=== PATIENT | female | born 1930 | race Caucasian/White ===

== ENCOUNTER 2016-05-23 16:48 | Inpatient (IN) | payer MEDICARE ==
[~2016-05-23] VITALS: Ht 152.4 cm; Wt 34.9 kg
--- NOTE | 2016-05-23 18:19 | REP ---
CT HEAD WITHOUT CONTRAST: HISTORY: Headache. COMPARISON: None. The ventricles and sulci are consistent with an 85-year-old. There are no extra-axial fluid collections. There is no shift of the midline structures. There is diffuse lucency seen throughout the deep cerebral white matter consistent with chronic change. There is no evidence of an acute intracranial hemorrhagic or nonhemorrhagic event. There is no skull fracture. There are paranasal sinus soft tissues densities consistent with mucosal thickening. This should be correlated clinically. IMPRESSION: Age-related changes and paranasal sinus mucosal thickening. Signed by Ted Allison DO 05/23/2016 06:43 P
--- NOTE | 2016-05-23 18:22 | REP ---
PORTABLE CHEST X-RAY: REASON: Syncope. PRIORS: Multiple, latest 09/25/2015 The technique utilized in obtaining the radiograph has magnified the cardiac silhouette and accentuated the interstitial markings. There is marked fibrotic changes status quo. Cardiomediastinal silhouette is unchanged. There is mild cardiomegaly. No acute patchy parenchymal opacities or pleural effusions have seem to have developed. There is no change in the osseous structures. IMPRESSION: Marked chronic changes as described above. Signed by Ted Allison DO 05/23/2016 06:44 P
[2016-05-23 18:31] LABS: BASO % 0.2 % (0.0-1.0); EOS % 0.3 % (0.0-3.0); LARGE UNSTAINED CELL # 0.1 K/mm3 (0.0-0.4); LARGE UNSTAINED CELL % 0.7 % (0.0-4.0); LYMPH # 0.5 K/mm3 (1.5-4.5); LYMPH % 3.4 % (24.0-44.0); MEAN CORPUSCULAR HEMOGLOBIN 28.1 pg (27.0-33.0); MEAN CORPUSCULAR VOLUME 87.8 fl (80.0-96.0); MONO # 0.6 K/mm3 (0.0-0.8); MONO % 4.5 % (0.0-5.0); NEUTROPHILS # 12.6 K/mm3 (1.8-7.7); PLATELET COUNT, AUTOMATED 440 k/mm3 (150-450); RED CELL DISTRIBUTION WIDTH 13.4 % (11.5-14.5); WHITE BLOOD COUNT 13.8 K/mm3 (4.0-10.0)
[2016-05-23 18:32] LABS: INR 0.94
[2016-05-23 18:41] LABS: ANION GAP 9 MEQ/L (8-16); BLOOD UREA NITROGEN 22 MG/DL (7-18); CALCIUM LEVEL 8.6 MG/DL (8.8-10.2); CARBON DIOXIDE LEVEL 33 MEQ/L (21-32); CHLORIDE LEVEL 95 MEQ/L (98-107); CREATININE FOR GFR 0.38 MG/DL (0.55-1.02); GLOMERULAR FILTRATION RATE > 60.0 (>32); GLUCOSE, FASTING 106 MG/DL (83-110); POTASSIUM SERUM 3.7 MEQ/L (3.5-5.1); SODIUM LEVEL 137 MEQ/L (136-145)
[2016-05-23] MEDS ORDERED: ENSU-12 PO ×2 (20:44)
[2016-05-23] MEDS ORDERED: SENN8.6T7 PO (20:44)
[2016-05-23] MEDS ORDERED: CALCTAB68 PO (20:44)
[2016-05-23] MEDS ORDERED: BISA10SU4 PR (20:44)
[2016-05-23] MEDS ORDERED: MILKSUS PO (20:44)
[2016-05-23] MEDS ORDERED: ETHA400T PO (20:44)
[2016-05-23] MEDS ORDERED: AZIT250T3 PO (20:44)
[2016-05-23] MEDS ORDERED: QVAR80AE7 INH (20:44)
[2016-05-23] MEDS ORDERED: FLEC25TA PO (20:44)
[2016-05-23] MEDS ORDERED: CRAN500C2 PO (20:44)
[2016-05-23] MEDS ORDERED: PRED10TA PO (20:44)
[2016-05-23] MEDS ORDERED: TYLE325T5 PO (20:44)
[2016-05-23] MEDS ORDERED: VITA100066 PO (20:44)
[2016-05-23] MEDS ORDERED: PARO10TA84 PO (20:44)
[2016-05-23] MEDS ORDERED: CARD40TA PO (20:44)
--- NOTE | 2016-05-23 21:08 | ECGEPIP ---
Stationary ECG Study [facility] - ED Test Date: 2016-05-23 Pat Name: ANNA MARIE PABON Department: Room: - Gender: F Lead Data Entry Operator: ct : 1930 Requested By: JUAN CARLOS Singleton Order Number: [id number] Reading MD: Kera Gomez Measurements Intervals Dawes Rate: 67 P: 55 KS: 165 QRS: -49 QRSD: 78 T: 14 QT: 420 QTc: 444 Interpretive Statements SINUS RHYTHM LEFT ANTERIOR FASCICULAR BLOCK NSTTW ABNORMALITY NO PRIOR FOR COMPARISON Electronically Signed On 05-23-2016 21:07:53 EDT by Kera Gomez
[2016-05-23] MEDS ORDERED: BISACODYL 10 MG SUPP PR PRN (22:15)
[2016-05-23] MEDS ORDERED: ONDANSETRON 4MG/2ML VIAL (J2405) IV PRN (22:15)
[2016-05-23] MEDS ORDERED: ACETAMINOPHEN TAB 650MG DOSE (2X325MG) PO PRN (22:15)
[2016-05-23] MEDS ORDERED: IPRATROPIUM 0.5MG/ALBUTEROL 2.5MG INH SOL UD 3ML (DUONEB)(J7620) NEB PRN (22:15)
[2016-05-23] MEDS ORDERED: MOM 30ML SUSPENSION UDC PO PRN (22:15)
[2016-05-23 22:22] LABS: ALBUMIN 2.9 GM/DL (3.2-5.2); ALBUMIN/GLOBULIN RATIO 0.85 (1.00-1.93); ALKALINE PHOSPHATASE 105 U/L (45-117); ALT/SGPT 19 U/L (12-78); AST/SGOT 18 U/L (15-37); BILIRUBIN,DIRECT < 0.1 MG/DL (0.0-0.2); BILIRUBIN,TOTAL 0.2 MG/DL (0.2-1.0); FERRITIN 105 NG/ML (8-252); MAGNESIUM LEVEL 1.6 MG/DL (1.8-2.4); PERCENT SATURATION 4.4 % (13.2-37.4); TOTAL IRON BINDING CAPACITY 320 UG/DL (250-450); TOTAL PROTEIN 6.3 GM/DL (6.4-8.2)
[2016-05-23 22:33] LABS: ERYTHROCYTE SEDIMENTATION RATE 54 mm/hr (0-30)
[2016-05-23 22:33] LABS: VITAMIN B12 LEVEL 178 PG/ML (247-911)
[2016-05-23 22:34] LABS: FOLATE > 24.0 NG/ML (>5.4)
[2016-05-23 23:30] VITALS: BP 151/63
[2016-05-24] VITALS (9 sets, daily range): BP systolic 101–138; BP diastolic 55–83
[2016-05-24] MEDS ORDERED: MAG SULF 1GM/100ML (MAG RUN) 1 GM in APPROPRIATE DILUENT 1 EA IV ONE ×2
[2016-05-24] MEDS: FLECAINIDE 50MG TABLET PO SCH ×3 (02:01→20:39)
[2016-05-24] MEDS: PARoxetine 10MG TABLET PO SCH ×2 (02:01→20:39)
[2016-05-24] MEDS: NS 1,000 ML IV SCH ×2 (02:02→18:15)
[2016-05-24] MEDS: IPRATROPIUM 0.5MG/ALBUTEROL 2.5MG INH SOL UD 3ML (DUONEB)(J7620) NEB SCH ×4 (02:12→23:46)
[2016-05-24 05:18] LABS: BASO % 0.3 % (0.0-1.0); EOS # 0.2 K/mm3 (0.0-0.50); EOS % 1.3 % (0.0-3.0); LARGE UNSTAINED CELL # 0.1 K/mm3 (0.0-0.4); LARGE UNSTAINED CELL % 0.8 % (0.0-4.0); LYMPH # 1.2 K/mm3 (1.5-4.5); MEAN CORPUSCULAR HEMOGLOBIN 28.7 pg (27.0-33.0); MEAN CORPUSCULAR HGB CONC 32.2 g/dl (32.0-36.5); MEAN CORPUSCULAR VOLUME 89.3 fl (80.0-96.0); MONO # 0.8 K/mm3 (0.0-0.8); MONO % 6.6 % (0.0-5.0); NEUTROPHILS # 10.3 K/mm3 (1.8-7.7); NEUTROPHILS % 81.9 % (36.0-66.0); PLATELET COUNT, AUTOMATED 422 k/mm3 (150-450); RED CELL DISTRIBUTION WIDTH 13.6 % (11.5-14.5); WHITE BLOOD COUNT 12.6 K/mm3 (4.0-10.0)
[2016-05-24 05:30] LABS: ANION GAP 7 MEQ/L (8-16); BLOOD UREA NITROGEN 13 MG/DL (7-18); CALCIUM LEVEL 8.4 MG/DL (8.8-10.2); CARBON DIOXIDE LEVEL 34 MEQ/L (21-32); CHLORIDE LEVEL 97 MEQ/L (98-107); CREATININE FOR GFR 0.43 MG/DL (0.55-1.02); GLOMERULAR FILTRATION RATE > 60.0 (>32); GLUCOSE, FASTING 81 MG/DL (83-110); POTASSIUM SERUM 3.4 MEQ/L (3.5-5.1); SODIUM LEVEL 138 MEQ/L (136-145)
[2016-05-24] MEDS ORDERED: POTASSIUM CHLORIDE 10 MEQ SR TABLET PO ONE (05:45)
--- NOTE | 2016-05-24 08:51 | IPNPDOC ---
Subjective Date Seen The patient was seen on 05/24/16. Subjective Chief Complaint/HPI The patient is a 85-year-old female admitted with a reason for visit of Syncope. General: Denies: Chills, Fatigue, Malaise, Night Sweats, Normal Appetite, Other Symptoms, ROS Unobtainable Constitutional: Denies: Chills, Fatigue, Fever, Lethargy, Malaise, Night Sweats , Other, Weakness, Weight Loss Eyes: Denies: Conjunctivae inflammation, Eyelid inflammation, Other, Pain, Redness, Vision change ENT: Denies: Dysphagia, Ear Pain, Epistaxis, Head Aches, Other Symptoms, Post Nasal Drip, Sinus Congestion, Sore Throat Skin: Denies: Breakdown, Bruising, Dry, Itching, Jaundice, Lesions, Nail Changes, Other, Rash Pulmonary: Denies: Cough, Dyspnea, Other Symptoms, Pleuritic Chest Pain Cardiovascular: Denies: Chest Pain, Edema, Lt Headedness, Orthopnea, Other Symptoms, Palpitations, Paroxysmal Noc. Dyspnea Gastrointestinal: Denies: Abdominal Pain, Constipation, Diarrhea, Hematochezia , Melena, Nausea, Other Symptoms, Vomiting Genitourinary: Denies: Dysuria, Frequency, Hematuria, Incontinence, Other Symptoms, Retention Objective Physical Examination General Exam: Positive: Alert, Cooperative, No Acute Distress, Other (elderly. frail) Eye Exam: Positive: Conjunctiva & lids normal, EOMI, PERRLA, Negative: Sclera icteric ENT Exam: Positive: Atraumatic Neck Exam: Positive: Supple Chest Exam: Positive: Clear to auscultation, Diminished Heart Exam: Positive: Rate Normal, Regular Rhythm Telemetry: Positive: No significant arrhythmia Abdomen Exam: Positive: Normal bowel sounds, Soft, Negative: Tenderness Extremity Exam: Negative: Edema Psych Exam: Positive: Oriented x 3 Assessment /Plan Problems (1) Syncope Status: Acute Response to Treatment: Progressing Discussed With: Patient Problem Specific Plan: Monitor Clinically, Repeat Labs, Repeat Tests Problem Text: Etiology not clear. Patient states isolated event, possibly vasovagal. States occurred around 2pm during PT/OT. She had breakfast, lunch and was otherwise a typical day. Denies any bladder/bowel symptoms, does not recall if she was sitting or standing at time of incident. States she was confused when she regained consciousness. Check orthostatics, telemetry monitoring - thus far unremarkable. EEG. Echocardiogram. Plan/VTE VTE Prophylaxis Ordered?: Yes Plan IVF: Continue Diet: Continue Current Activity: Continue Current Therapy: PT, OT Diagnostics: Repeat Labs in AM, TTE VS, I&O, [facility]H, [facility] Vital Signs/I&O Vital Signs Date Time Temp Pulse Resp B/P Pulse Ox O2 Delivery O2 Flow Rate FiO2 05/24/16 08:34 Nasal Cannula 2.0 05/24/16 04:49 98.7 68 18 101/55 98 I&O- Last 24 Hours up to 6 AM 05/24/16 05:59 Output Total 550 ml Balance -550 ml Laboratory Data 24H LABS Laboratory Tests 2 05/23/16 18:10: White Blood Count 13.8H, Red Blood Count 3.81L, Hemoglobin 10.7L, Hematocrit 33.5L, Mean Corpuscular Volume 87.8, Mean Corpuscular Hemoglobin 28.1, Mean Corpuscular Hemoglobin Concent 32.0, Red Cell Distribution Width 13.4, Platelet Count 440, Neutrophils (%) (Auto) 91.0H, Lymphocytes (%) (Auto) 3.4L, Monocytes (%) (Auto) 4.5, Eosinophils (%) (Auto) 0.3, Basophils (%) (Auto) 0.2, Neutrophils # (Auto) 12.6H, Lymphocytes # (Auto) 0.5L, Monocytes # (Auto) 0.6, Eosinophils # (Auto) 0.0, Basophils # (Auto) 0.0, Erythrocyte Sedimentation Rate 54H, Large Unclassified Cells # 0.1, Large Unclassified Cells % 0.7 05/23/16 18:11: Aspartate Amino Transf (AST/SGOT) 18, Alanine Aminotransferase (ALT/SGPT) 19, Alkaline Phosphatase 105, Total Bilirubin 0.2, Direct Bilirubin < 0.1, Albumin 2.9L, Albumin/Globulin Ratio 0.85L, Anion Gap 9, C-Reactive Protein, Quantitative 3.28H, Calcium Level 8.6L, Creatine Kinase MB 1.0, Creatine Kinase MB Relative Index 3.84, Ferritin 105, Folate > 24.0, Glomerular Filtration Rate > 60.0, Iron Level 14L, Magnesium Level 1.6L, Thyroid Stimulating Hormone (TSH) 1.950, Total Creatine Kinase 26, Total Iron Binding Capacity 320, Total Protein 6.3L, Transferrin % Saturation 4.4L, Troponin I < 0.02, Vitamin B12 Level 178L 05/23/16 18:14: Activated Partial Thromboplast Time 26.8, Prothromb Time International Ratio 0.94, Prothrombin Time 12.7 05/23/16 19:43: Urine Amorphous Sediment SMALLH, Urine Appearance HAZY, Urine Color YELLOW, Urine pH 6.0, Urine Specific [place] 1.021, Urine Protein NEGATIVE, Urine Glucose (UA) NEGATIVE, Urine Ketones TRACEH, Urine Urobilinogen 0.2, Urine Bilirubin NEGATIVE, Urine Leukocyte Esterase NEGATIVE, Urine Bacteria (Auto) NEGATIVE, Urine Blood NEGATIVE, Urine Calcium Carbonate Cryst(Auto) , Urine Calcium Oxalate Cryst (Auto) , Urine Calcium Phosphate Karina (Auto) , Urine Cellular Casts , Urine Cystine Crystals , Urine Granular Casts (Auto) , Urine Hyaline Casts (Auto) 1, Urine Leucine Crystals , Urine Mucus (Auto) SMALL, Urine Nitrite NEGATIVE, Urine Oval Fat Bodies (Auto) , Urine RBC (Auto) 4H, Urine Renal Epithelial Cells , Urine Sperm (Auto) , Urine Squamous Epithelial Cells 14, Urine Transitional Epithelial Cells , Urine Trichomonas (Auto) , Urine Triple Phosphate Cryst (Auto) , Urine Tyrosine Crystals , Urine Uric Acid Crystals (Auto) , Urine WBC (Auto) 2, Urine Waxy Casts (Auto) , Urine Yeast- Like Cells (Auto) 05/24/16 00:02: Urine Amorphous Sediment SMALLH, Urine Appearance HAZY, Urine Color YELLOW, Urine pH 7.0, Urine Specific [place] 1.012, Urine Protein NEGATIVE, Urine Glucose (UA) NEGATIVE, Urine Ketones NEGATIVE, Urine Urobilinogen 0.2, Urine Bilirubin NEGATIVE, Urine Leukocyte Esterase NEGATIVE, Urine Bacteria (Auto) NEGATIVE, Urine Blood NEGATIVE, Urine Calcium Carbonate Cryst(Auto) , Urine Calcium Oxalate Cryst (Auto) , Urine Calcium Phosphate Karina (Auto) , Urine Cellular Casts , Urine Cystine Crystals , Urine Granular Casts (Auto) , Urine Hyaline Casts (Auto) 0, Urine Leucine Crystals , Urine Mucus (Auto) , Urine Nitrite NEGATIVE, Urine Oval Fat Bodies (Auto) , Urine RBC (Auto) 1, Urine Renal Epithelial Cells , Urine Sperm (Auto) , Urine Squamous Epithelial Cells 2 , Urine Transitional Epithelial Cells , Urine Trichomonas (Auto) , Urine Triple Phosphate Cryst (Auto) , Urine Tyrosine Crystals , Urine Uric Acid Crystals ( Auto) , Urine WBC (Auto) 3, Urine Waxy Casts (Auto) , Urine Yeast-Like Cells ( Auto) 05/24/16 00:23: Creatine Kinase MB 1.0, Creatine Kinase MB Relative Index 3.70, Total Creatine Kinase 27, Troponin I 0.02 05/24/16 05:05: Anion Gap 7L, White Blood Count 12.6H, Red Blood Count 3.90L, Hemoglobin 11.2L, Hematocrit 34.8L, Mean Corpuscular Volume 89.3, Mean Corpuscular Hemoglobin 28.7 , Mean Corpuscular Hemoglobin Concent 32.2, Red Cell Distribution Width 13.6, Platelet Count 422, Neutrophils (%) (Auto) 81.9H, Lymphocytes (%) (Auto) 9.0L, Monocytes (%) (Auto) 6.6H, Eosinophils (%) (Auto) 1.3, Basophils (%) (Auto) 0.3 , Neutrophils # (Auto) 10.3H, Lymphocytes # (Auto) 1.2L, Monocytes # (Auto) 0.8 , Eosinophils # (Auto) 0.2, Basophils # (Auto) 0.0, Blood Urea Nitrogen 13, Creatinine 0.43L, Sodium Level 138, Potassium Level 3.4L, Chloride Level 97L, Carbon Dioxide Level 34H, Calcium Level 8.4L, Glomerular Filtration Rate > 60.0 , Large Unclassified Cells # 0.1, Large Unclassified Cells % 0.8, Magnesium Level 2.2 CBC/BMP Laboratory Tests 05/23/16 18:10 Red Blood Count 3.81 L, Mean Corpuscular Volume 87.8, Mean Corpuscular Hemoglobin 28.1, Mean Corpuscular Hemoglobin Concent 32.0, Red Cell Distribution Width 13.4, Neutrophils (%) (Auto) 91.0 H, Lymphocytes (%) (Auto) 3.4 L, Monocytes (%) (Auto) 4.5, Eosinophils (%) (Auto) 0.3, Basophils (%) (Auto ) 0.2, Neutrophils # (Auto) 12.6 H, Lymphocytes # (Auto) 0.5 L, Monocytes # ( Auto) 0.6, Eosinophils # (Auto) 0.0, Basophils # (Auto) 0.0 05/23/16 18:11 05/24/16 05:05 Red Blood Count 3.90 L, Mean Corpuscular Volume 89.3, Mean Corpuscular Hemoglobin 28.7, Mean Corpuscular Hemoglobin Concent 32.2, Red Cell Distribution Width 13.6, Neutrophils (%) (Auto) 81.9 H, Lymphocytes (%) (Auto) 9.0 L, Monocytes (%) (Auto) 6.6 H, Eosinophils (%) (Auto) 1.3, Basophils (%) ( Auto) 0.3, Neutrophils # (Auto) 10.3 H, Lymphocytes # (Auto) 1.2 L, Monocytes # (Auto) 0.8, Eosinophils # (Auto) 0.2, Basophils # (Auto) 0.0, Calcium Level 8.4 L Microbiology Microbiology 05/23/16 Blood Culture, Received Pending 05/23/16 Blood Culture, Received Pending 05/24/16 Urine Culture, Received Pending OLIVIA MARTINEZ MD May 24, 2016 08:50
[2016-05-24] MEDS ORDERED: DOCUSATE SODIUM 100 MG CAP PO SCH (09:00)
[2016-05-24] MEDS: ENOXAPARIN 40 MG/0.4 ML SYRINGE (J1650) SC SCH (10:17)
[2016-05-24] MEDS: ETHAMBUTOL 400MG TAB PO SCH (10:18)
[2016-05-24] MEDS: predniSONE 10 MG TAB PO SCH (10:18)
[2016-05-24] MEDS: guaiFENesin ER 600 MG TAB PO SCH ×2 (10:19→20:40)
[2016-05-24] MEDS: CALCIUM/VITAMIN D 500 MG TAB PO SCH (10:20)
[2016-05-24] MEDS: VITAMIN D 1,000 INTERNATIONAL UNITS TABLET PO SCH (10:20)
[2016-05-24] MEDS: SENOKOT S TAB PO SCH (10:22)
[2016-05-24] MEDS: AZITHROMYCIN 250 MG TAB PO SCH (10:22)
--- NOTE | 2016-05-24 20:39 | HPE ---
DATE OF ADMISSION: 05/23/2016 TIME PATIENT WAS SEEN: 22:00 PRIMARY CARE PROVIDER: Dr. Sterling William EMAIL MARKETING EXECUTIVE: Dr. Diaz WEIGHT CALLER: Dr. Wu CHIEF COMPLAINT: Passing out. HISTORY OF PRESENT ILLNESS: 85-year-old female with past medical history of interstitial lung disease uses two liters nasal cannula oxygen 24 hours at home follows with Dr. Wu, history of atrial tachycardia follows with Dr. 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 Miller, patient is receiving therapy, also moderately severe mitral regurgitation and mitral valve prolapse presented with passing out and becoming unresponsive while patient was receiving physical therapy around 2 p.m. at [facility]. Per patient, she was doing some light weights with her arms, then she passed out. She does not remember what happened afterward. From emergency medical services (EMS) notes, she was out only momentarily, and after she woke up she also felt nauseous, and according to patient's daughter, she was more disoriented, almost like she had a seizure, due to patient's granddaughter also had a seizure in the past. In addition, patient also reports a headache. EMS also reported that patient's heart rate was in the 40s when they arrived. She reported she felt funny and it was different from her previous headache. She also has pain of bilateral eyes as well. In addition, she was recently admitted. Her last admission was on 04/15/2016, for not feeling well for one week. At that time, patient was admitted for atrial tachycardia and she was also started on a very low dose of Cardizem. In addition, she reports that her sputum has become more sha for the past few weeks, and while in the room, resident doctor and medical student noticed the sputum was tinged with blood. She also reports chronic constipation and also chronic cough. Otherwise, patient denies any chest pain, any trouble breathing. Patient admits to nausea. Denies vomiting. Denies any diarrhea. Denies any problem with urination. Denies any weakness on one side of her body or any change in sensation besides her headache and passing out. Patient; however, does admit to feeling like the room was spinning. However, it has been going on for some time per patient. ALLERGIES: No known drug allergies. HOME MEDICATIONS: Including - Tylenol 650 mg one tablet by mouth every four hours as needed - azithromycin 250 mg one tablet by mouth daily - beclomethasone dipropionate 80 mcg inhalation twice a day - Dulcolax 10 mg per rectum daily as needed - calcium and vitamin D one tablet by mouth daily - vitamin D 1000 units by mouth daily - cranberry 500 mg one tablet by mouth daily - Cardizem 7.5 mg one tablet by mouth twice a day - Colace with senna 8.6/50 mg one tablet by mouth daily - Ensure Clear 240 mL by mouth daily - Ensure Clear 160 mL by mouth at bedtime - ethambutol 800 mg by mouth daily - flecainide 25 mg one tablet by mouth twice a day - milk of magnesia 30 mL by mouth once a day as needed - paroxetine 10 mg by mouth daily - prednisone 10 mg one tablet by mouth daily PAST MEDICAL HISTORY: 1. Interstitial lung disease, follows with Dr. Wu on oxygen two liters 24 hours a day at home. 2. 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 Miller. 3. History of atrial tachycardia, follows with Dr. Diaz. 4. Mitral valve prolapse with moderately severe mitral regurgitation and left atrium enlargement. PAST SURGICAL HISTORY: 1. Hysterectomy. 2. Bladder prolapse. 3. Lumbar laminectomy. 4. Bilateral cataracts. 5. Tooth extractions. SOCIAL HISTORY: Patient lives at home with family; however, she does go to [facility] for rehabilitation after recent admitted in April. She denies any smoking, drinking, or recreational drug use. 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 FAMILY HISTORY: Patient's son had brain cancer and lung cancer. One daughter from ovarian cancer. Another daughter had colon cancer and still surviving. Patient has seven children in total. REVIEW OF SYSTEMS: GENERAL: Patient denies any recent traveling. Admits to recent admission in April. Denies any sick contacts. Admits to weight loss of about 30 pounds over the past one year; however, she contributes that to her severe lung disease. HEENT: Denies any changes with vision, smell, hearing, or taste, or any sore throat. Patient does admit to cough. Admits to sputum production and sputum has been becoming more sha recently. In the room, resident and student noticed the sputum is tinged with blood. CARDIOVASCULAR: Patient does have history of atrial tachycardia and follows up with Dr. Diaz currently on flecainide and Cardizem. Patient also reports palpitation right before she passed out, and also per EMS, patient's heart rate was rather low in the 40s. PULMONARY: Patient does have chronic lung disease with interstitial lung disease and emphysema. Patient follows with Dr. Wu outpatient and patient does take chronic steroids. GI: Patient denies any abdominal pain. Admits to nausea. Denies any vomiting. Denies any diarrhea. Admits to constipation; last bowel movement was two days ago. : Denies any problem with urination or burning on urination. Denies any blood in the urine or stool. MUSCULOSKELETAL: Denies any pain any where. ENDOCRINE: Denies any diabetes, any cold or heat intolerance. HEMATOLOGY/ONCOLOGY: Denies any easy bruising or any bleeding anywhere. PSYCH: Admits to depression due to patient's daughter recently passing away. NEURO: Denies any weakness on any side of her body. Admits to feeling spinning and also generalized weakness in addition to her passing out. PHYSICAL EXAMINATION: VITAL SIGNS: Temperature was 96.9, pulse 75, respirations 20, blood pressure 143/80, oxygen saturation was 99% on two liters nasal cannula. GENERAL: Patient is a cachectic looking, elderly female who was alert, awake, and oriented times three, does not appear to be in distress, lying comfortably in bed with head elevated at 45 degree angle on two liters nasal cannula. HEENT: Normocephalic, atraumatic. Extraocular movements are intact. Mucosa moist. NECK: Supple. No neck lymphadenopathy. CARDIOVASCULAR: Regular rate and rhythm, normal S1, S2. Patient does have a significant murmur 4/6 best heard at the fourth intercostal space. Also positive thrill. PULMONARY: Patient has diffuse wheezing that is both inspiratory and expiratory. Also has reduced lung sounds bilaterally. Also increased anteroposterior (AP) diameter. ABDOMEN: Positive bowel sounds. Soft, nontender, nondistended. No peritoneal signs. No ecchymosis. EXTREMITIES: No edema, clubbing, or cyanosis. SKIN: Warm and dry. NEURO: Cranial nerves II-XII intact. No focal neurological deficit. LABS: WBC 13.8, hemoglobin 10.7, hematocrit 33.5 with a platelet count of 440, MCV 87.8. ESR was 54, elevated. Sodium 137, potassium 3.7, chloride 95, bicarbonate 33, anion gap was 9, BUN 22, creatinine 0.38, GFR greater than 60, fasting glucose 106, calcium 8.6, magnesium was low at 1.6, iron 14, TIBC 320, transferrin was 4.4, ferritin was 105, total bilirubin 0.2, direct bilirubin less than 0.1, AST 18, ALT 19, alkaline phosphatase 105, CK 26, CK-MB 1, troponin less than 0.02, CRP was elevated at 3.28, total protein 6.3, albumin 2.9, B12 was low at 178, folate greater than 24, TSH 1.95. PT 12.7, INR 0.94, PTT 26.8. Urinalysis shows trace ketone, 4 RBC, small amorphous segments. Blood culture times two are pending. Portable chest x-ray shows marked chronic changes; however, there is no acute processes. Head CT without contrast shows age-related changes and paranasal sinus mucosal thickening. 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 Miller currently receiving treatment, also atrial tachycardia follows with Dr. Diaz, and also moderate to severe mitral regurgitation, and also mitral valve prolapse presented with: 1. Syncope, etiology unclear. Patient is orthostatic. However, other etiology is possibly including seizure. At this point, it is less likely due to patient's total creatinine kinase is only 26. Other causes including cardiac. Patient does have a left anterior fascicular block on EKG; it was not on patient's previous EKG in April, possibly more apparent now since patient is on Cardizem and also flecainide. Patient also was reported to have a heart rate in the 40s initially; however, while patient was in the emergency room, patient's heart rate stayed between 60s and 70s consistently. We will continue to monitor patient. If patient does develop a symptomatic bradycardia, we will consider to consult patient's vocational counselor, Dr. Diaz. In addition, we will put hold parameters on her home medications including Cardizem 7.5 mg by mouth twice a day, hold if systolic blood pressure is less than 65. At this point, we will continue flecainide. Acute coronary syndrome (ACS) has been ruled out with negative troponin. However, we will followup with one more set. In addition, patient does have electrolyte abnormalities as well with magnesium of 1.6, which was repleted. Also, patient does have CT of the head which shows age related change and also paranasal sinus mucosal thickening. However, patient does take antibiotic at home including azithromycin and also exam ethambutol. We will continue to monitor. Possibly we will change patient's antibiotic. Blood cultures pending. Sputum culture is pending as well. Patient does have a very mild WBC elevation of 13.8. However, she does take steroids at home. Continue patient on cardiac telemetry. 2. Questionable symptomatic bradycardia. Patient's heart rate initially was in the 40s when EMS arrived. Blood pressure was stable at that time. However, patient's heart rate has been consistently above 60 in the emergency room. We will continue to monitor. Possibly consult cardiology if patient does have symptomatic bradycardia. 3. Blood tinged sputum. Per patient, this is new and only started two weeks ago. She is already on azithromycin 250 mg daily and also ethambutol 800 mg by mouth once a day for patient's pneumonia inflected with mycobacterium and follows with Dr. Miller outpatient. Patient does have a mild leukocytosis and elevated ESR at 54 and CRP at 3.28. We will followup with sputum culture and we will start treatment according to the blood culture. At this point, we will hold any empiric antibiotic due to patient does have this diagnosed pneumonia and also interstitial lung disease. 4. Normocytic anemia with hemoglobin of 10.7, hematocrit of 33.2, and MCV of 87.8. Iron panel, B12 and folate were ordered and shows that patient does have likely iron deficiency anemia with iron of 14, TIBC of 320, transferrin percentage was only 4.4, ferritin was 105. However, if patient is acutely having infection, it may not be the best time to start the patient. In addition, patient does have a low level vitamin B12 as well, which was only 178. Patient may need supplementation once patient's infection is better controlled. 5. Hypomagnesemia with magnesium of 1.6, which has been repleted. We will continue to monitor. 6. Interstitial lung disease. On two liters nasal cannula oxygen 24 hours at home follows with Dr. Wu. At this point, patient still does have both expiratory and inspiratory wheezing. Patient's prednisone has been increased from 10 mg at home to 4 mg. We will continue DuoNebs every eight hours scheduled and also every 2 hours as needed, and continue to monitor patient. In addition, we have started patient on Mucinex and also Acapella. 7. Atrial tachycardia. Takes Cardizem and flecainide at home. At this point, we will continue those two medications and put hold parameters on Cardizem and continue to monitor patient on cardiac telemetry. 8. Depression. Continue patient on paroxetine. 9. Deep vein thrombosis (DVT) prophylaxis. Lovenox 40 mg subcutaneous daily. DISPOSITION: Patient does have a syncopal CT of the head; did not show any acute findings. However, it does show paranasal sinus mucosal thickening. Patient's sputum has been tinged with blood, we will followup with culture regarding possible change of antibiotic, and we will continue to monitor patient on cardiac telemetry for possible symptomatic bradycardia. Patient has been discussed with attending doctor, Dr. Gimenez. My preceptor for this patient encounter was Dr. Ian Gimenez. The preceptor was physically present in the building during the encounter and was fully available. As needed, all aspects of the patient interview, examination, medical decision making process, and medical care plan development were reviewed and approved by the preceptor. The preceptor is aware and concurs with the plan as stated in the body of this note and will attest to such by his cosignature.
[2016-05-25] VITALS (9 sets, daily range): BP systolic 121–159; BP diastolic 57–73
[2016-05-25 05:33] LABS: BASO % 0.4 % (0.0-1.0); EOS % 0.5 % (0.0-3.0); LARGE UNSTAINED CELL # 0.1 K/mm3 (0.0-0.4); LARGE UNSTAINED CELL % 1.4 % (0.0-4.0); LYMPH # 1.1 K/mm3 (1.5-4.5); LYMPH % 12.8 % (24.0-44.0); MEAN CORPUSCULAR HEMOGLOBIN 28.4 pg (27.0-33.0); MEAN CORPUSCULAR VOLUME 88.6 fl (80.0-96.0); MONO # 0.6 K/mm3 (0.0-0.8); MONO % 6.8 % (0.0-5.0); NEUTROPHILS # 6.6 K/mm3 (1.8-7.7); NEUTROPHILS % 78.1 % (36.0-66.0); PLATELET COUNT, AUTOMATED 398 k/mm3 (150-450); RED CELL DISTRIBUTION WIDTH 13.5 % (11.5-14.5); WHITE BLOOD COUNT 8.5 K/mm3 (4.0-10.0)
[2016-05-25 05:47] LABS: ANION GAP 5 MEQ/L (8-16); BLOOD UREA NITROGEN 13 MG/DL (7-18); CALCIUM LEVEL 7.8 MG/DL (8.8-10.2); CARBON DIOXIDE LEVEL 35 MEQ/L (21-32); CHLORIDE LEVEL 101 MEQ/L (98-107); CREATININE FOR GFR 0.38 MG/DL (0.55-1.02); GLOMERULAR FILTRATION RATE > 60.0 (>32); GLUCOSE, FASTING 83 MG/DL (83-110); MAGNESIUM LEVEL 1.8 MG/DL (1.8-2.4); POTASSIUM SERUM 4.1 MEQ/L (3.5-5.1); SODIUM LEVEL 141 MEQ/L (136-145)
[2016-05-25] MEDS: IPRATROPIUM 0.5MG/ALBUTEROL 2.5MG INH SOL UD 3ML (DUONEB)(J7620) NEB SCH ×3 (08:15→23:35)
--- NOTE | 2016-05-25 08:56 | ECGEPIP ---
Stationary ECG Study [facility] Test Date: 2016-05-23 Pat Name: ANNA MARIE PABON Department: Room: [place] [address] Gender: F Cupola Liner: ct : 1930 Requested By: LISA SANTOS Order Number: [id number] Reading MD: Kalia Diaz Measurements Intervals [place] Rate: 86 P: 37 FL: 174 QRS: -51 QRSD: 78 T: -21 QT: 397 QTc: 475 Interpretive Statements SINUS RHYTHM WITH OCCASIONAL VENTRICULAR PREMATURE COMPLEXES WITH FREQUENT SUPRAVENTRICULAR PREMATURE COMPLEXES LEFT ANTERIOR FASCICULAR BLOCK NONSPECIFIC T-WAVE ABNORMALITY PVC's and PACs are new since 17:53 same day Electronically Signed On 05-25-2016 8:56:04 EDT by Kalia Diaz
[2016-05-25] MEDS: AZITHROMYCIN 250 MG TAB PO SCH (09:00)
--- NOTE | 2016-05-25 09:02 | ECGEPIP ---
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
[2016-05-25] MEDS: predniSONE 10 MG TAB PO SCH (09:12)
[2016-05-25] MEDS: CALCIUM/VITAMIN D 500 MG TAB PO SCH (09:13)
[2016-05-25] MEDS: ETHAMBUTOL 400MG TAB PO SCH (09:13)
[2016-05-25] MEDS: FLECAINIDE 50MG TABLET PO SCH ×2 (09:14→20:15)
[2016-05-25] MEDS: VITAMIN D 1,000 INTERNATIONAL UNITS TABLET PO SCH (09:14)
[2016-05-25] MEDS: ENOXAPARIN 40 MG/0.4 ML SYRINGE (J1650) SC SCH (09:16)
[2016-05-25] MEDS: SENOKOT S TAB PO SCH (09:16)
[2016-05-25] MEDS: guaiFENesin ER 600 MG TAB PO SCH ×2 (09:16→20:15)
--- NOTE | 2016-05-25 09:41 | IPNPDOC ---
Subjective Date Seen The patient was seen on 05/25/16. Subjective Chief Complaint/HPI The patient is a 85-year-old female admitted with a reason for visit of Syncope. General: Denies: Chills, Fatigue, Malaise, Night Sweats, Normal Appetite, Other Symptoms, ROS Unobtainable Constitutional: Denies: Chills, Fatigue, Fever, Lethargy, Malaise, Night Sweats , Other, Weakness, Weight Loss Eyes: Denies: Conjunctivae inflammation, Eyelid inflammation, Other, Pain, Redness, Vision change ENT: Denies: Dysphagia, Ear Pain, Epistaxis, Head Aches, Other Symptoms, Post Nasal Drip, Sinus Congestion, Sore Throat Skin: Denies: Breakdown, Bruising, Dry, Itching, Jaundice, Lesions, Nail Changes, Other, Rash Pulmonary: Denies: Cough, Dyspnea, Other Symptoms, Pleuritic Chest Pain Cardiovascular: Denies: Chest Pain, Edema, Lt Headedness, Orthopnea, Other Symptoms, Palpitations, Paroxysmal Noc. Dyspnea Gastrointestinal: Denies: Abdominal Pain, Constipation, Diarrhea, Hematochezia , Melena, Nausea, Other Symptoms, Vomiting Genitourinary: Denies: Dysuria, Frequency, Hematuria, Incontinence, Other Symptoms, Retention Objective Physical Examination General Exam: Positive: Alert, Cooperative, No Acute Distress, Other (elderly. frail) Eye Exam: Positive: Conjunctiva & lids normal, EOMI, PERRLA, Negative: Sclera icteric ENT Exam: Positive: Atraumatic Neck Exam: Positive: Supple Chest Exam: Positive: Clear to auscultation, Diminished Heart Exam: Positive: Rate Normal, Regular Rhythm Telemetry: Positive: No significant arrhythmia Abdomen Exam: Positive: Normal bowel sounds, Soft, Negative: Tenderness Extremity Exam: Negative: Edema Psych Exam: Positive: Oriented x 3 Assessment /Plan Problems (1) Syncope Status: Acute Response to Treatment: Progressing Discussed With: Patient Problem Specific Plan: Monitor Clinically, Repeat Labs, Repeat Tests Problem Text: Etiology not clear. Patient states isolated event, possibly vasovagal. States occurred around 2pm during PT/OT. She had breakfast, lunch and was otherwise a typical day. Denies any bladder/bowel symptoms, does not recall if she was sitting or standing at time of incident. States she was confused when she regained consciousness. Check orthostatics, telemetry monitoring - thus far unremarkable. EEG. Echocardiogram. (2) ILD (interstitial lung disease) Status: Chronic Discussed With: Patient Problem Specific Plan: Monitor Clinically Problem Text: With chronic hypoxic respiratory failure , 2L O2 at baseline. Follows with Dr. Wu. Continue prednisone. (3) Mycobacterial disease, pulmonary Status: Chronic Discussed With: Patient Problem Text: Follow with Dr. Miller. Ethambutol 800 daily. Azithromycin 250 daily. (4) Atrial tachycardia Status: Chronic Discussed With: Patient Problem Specific Plan: Monitor Clinically Problem Text: Follows with Dr. Diaz. Continue cardizem, flecainide. (5) Underweight Status: Chronic Discussed With: Patient Problem Specific Plan: Monitor Clinically Problem Text: Continue dietary supplements. Plan/VTE VTE Prophylaxis Ordered?: Yes Plan IVF: Continue Diet: Continue Current Activity: Continue Current Therapy: PT, OT Diagnostics: Repeat Labs in AM, TTE No further episodes. Telemetry no significant findings. 2D echo pending. Orthostatics WNL. Disposition Pending 2d echo report and further PT for safe discharge VS, I&O, 24H, Fishbone Vital Signs/I&O Vital Signs Date Time Temp Pulse Resp B/P Pulse Ox O2 Delivery O2 Flow Rate FiO2 05/25/16 07:57 Nasal Cannula 2.0 05/25/16 07:46 97.0 72 17 159/69 100 I&O- Last 24 Hours up to 6 AM 05/25/16 06:00 Intake Total 2780 ml Output Total 1665 ml Balance 1115 ml Laboratory Data 24H LABS Laboratory Tests 2 05/25/16 05:10: Anion Gap 5L, White Blood Count 8.5, Red Blood Count 3.49L, Hemoglobin 9.9L, Hematocrit 30.9L, Mean Corpuscular Volume 88.6, Mean Corpuscular Hemoglobin 28.4 , Mean Corpuscular Hemoglobin Concent 32.0, Red Cell Distribution Width 13.5, Platelet Count 398, Neutrophils (%) (Auto) 78.1H, Lymphocytes (%) (Auto) 12.8L, Monocytes (%) (Auto) 6.8H, Eosinophils (%) (Auto) 0.5, Basophils (%) (Auto) 0.4 , Neutrophils # (Auto) 6.6, Lymphocytes # (Auto) 1.1L, Monocytes # (Auto) 0.6, Eosinophils # (Auto) 0.0, Basophils # (Auto) 0.0, Blood Urea Nitrogen 13, Creatinine 0.38L, Sodium Level 141, Potassium Level 4.1#, Chloride Level 101, Carbon Dioxide Level 35H, Calcium Level 7.8L, Glomerular Filtration Rate > 60.0 , Large Unclassified Cells # 0.1, Large Unclassified Cells % 1.4, Magnesium Level 1.8 CBC/BMP Laboratory Tests 05/25/16 05:10 Calcium Level 7.8 L, Red Blood Count 3.49 L, Mean Corpuscular Volume 88.6, Mean Corpuscular Hemoglobin 28.4, Mean Corpuscular Hemoglobin Concent 32.0, Red Cell Distribution Width 13.5, Neutrophils (%) (Auto) 78.1 H, Lymphocytes (%) (Auto) 12.8 L, Monocytes (%) (Auto) 6.8 H, Eosinophils (%) (Auto) 0.5, Basophils (%) ( Auto) 0.4, Neutrophils # (Auto) 6.6, Lymphocytes # (Auto) 1.1 L, Monocytes # ( Auto) 0.6, Eosinophils # (Auto) 0.0, Basophils # (Auto) 0.0 Microbiology Microbiology 05/23/16 Blood Culture - Preliminary, Resulted No growth after 24 hours . All specim... 05/23/16 Blood Culture - Preliminary, Resulted No growth after 24 hours . All specim... 05/24/16 Urine Culture - Final, Complete OLIVIA MARTINEZ MD May 25, 2016 09:41
[2016-05-25] MEDS ORDERED: ACETAMINOPHEN TAB 650MG DOSE (2X325MG) PO PRN (10:45)
[2016-05-25] MEDS ORDERED: ONDANSETRON 4MG/2ML VIAL (J2405) IV PRN (10:45)
--- NOTE | 2016-05-25 13:25 | EEG ---
DATE OF PROCEDURE: 05/24/2016 REFERRING PHYSICIAN: Dr. Rogelio Michelle DIAGNOSIS: Seizure. EEG NUMBER: [id number] HISTORY: The patient is an 85-year-old woman who was admitted at [facility] due to an episode of unresponsiveness. This EEG was done to rule out epileptic potential. She is currently taking Zithromax, flecainide, diltiazem, prednisone, etc. TECHNICAL DESCRIPTION: This digital EEG was recorded by 21 scalp, ear, and two EKG electrodes and was reviewed in bipolar and referential montages following reformatting in 10-20 international electrode placement system. INTERPRETATION: The patient was noted to be in awake and drowsy states during this EEG. Resting awake background rhythm consisted of 8-9 Hz alpha activity measuring 15-30 microvolts in amplitude, which was symmetric and reactive to eye opening. Stage I and II sleep were reviewed and were symmetric bilaterally. Hyperventilation could not be performed. Photic stimulation remained unremarkable. EKG revealed normal sinus rhythm. No focal, lateralizing or epileptiform abnormalities were seen. No clinical or electrographic seizures were recorded. CONCLUSION: This EEG in awake, drowsy states, stage I and II sleep is within normal limits.
--- NOTE | 2016-05-25 15:09 | ECHO ---
DATE OF SERVICE: 05/24/2016 REFERRING PROVIDER: Dr. Rogelio Michelle PATIENT LOCATION: 3218 REASON FOR ECHOCARDIOGRAM: Syncope. 2D MEASUREMENTS: IVS: 0.8 cm LVPW: 0.9 cm LV: 4.4 cm LA: 2.8 cm Aorta: 2.7 cm IVC: 1.6 cm DOPPLER MEASUREMENTS: Peak velocity across the aortic valve: 1.5 m/s Peak velocity across the LVOT: 0.97 m/s Mitral E: 0.81 Mitral A: 0.69 with a ratio of 1.2 Maximum tricuspid valve velocity: 3.3 m/s 2D COMMENTS: 1. Normal left ventricular size, wall thickness, and normal global left ventricular systolic function. The estimated left ventricular systolic ejection fraction is 65-70%. 2. Normal left atrium. Normal right atrium and left ventricle. 3. The atrial septum appeared to be normal without evidence of defect or shunt. 4. Normal aortic root. 5. No pericardial effusion seen. 6. Mildly calcified aortic valve with normal leaflet excursion. Mildly calcified mitral annulus. The mitral valve leaflets appeared to be prolapsing. Normal tricuspid valve and pulmonic valve. The proximal pulmonary artery branches were not well visualized. 7. The inferior vena cava appears to be normal in size, central venous pressure is most likely normal. DOPPLER: It detects severe mitral regurgitation and moderately severe tricuspid regurgitation. The calculated pulmonary artery systolic pressure varied between 40 to 50 mmHg. Abnormal relaxation pattern was noted across the septal and lateral mitral valve annulus consistent with pseudo-normal pattern, left ventricular end-diastolic pressure might be elevated. Also noted were two small jets of pulmonic regurgitation. IMPRESSION: 1. Normal global left ventricular systolic function. There are features of left ventricular diastolic dysfunction, as mentioned above. 2. Aortic valve sclerosis without stenosis or aortic regurgitation. 3. Bilateral mitral valve prolapse was noted with probably severe mitral regurgitation. 4. Moderately severe tricuspid regurgitation with moderate pulmonary hypertension. MTDD
[2016-05-25] MEDS: PARoxetine 10MG TABLET PO SCH (20:15)
[2016-05-26] VITALS: BP 143/65
[2016-05-26 04:00] VITALS: BP 115/57
[2016-05-26 05:26] LABS: MAGNESIUM LEVEL 1.7 MG/DL (1.8-2.4)
[2016-05-26 06:33] LABS: BASO % 0.3 % (0.0-1.0); EOS % 0.2 % (0.0-3.0); LARGE UNSTAINED CELL # 0.1 K/mm3 (0.0-0.4); LYMPH # 1.2 K/mm3 (1.5-4.5); MEAN CORPUSCULAR HEMOGLOBIN 29.1 pg (27.0-33.0); MEAN CORPUSCULAR HGB CONC 33.3 g/dl (32.0-36.5); MEAN CORPUSCULAR VOLUME 87.4 fl (80.0-96.0); MONO # 0.9 K/mm3 (0.0-0.8); MONO % 6.7 % (0.0-5.0); NEUTROPHILS # 11.1 K/mm3 (1.8-7.7); NEUTROPHILS % 82.9 % (36.0-66.0); PLATELET COUNT, AUTOMATED 423 k/mm3 (150-450); RED CELL DISTRIBUTION WIDTH 13.5 % (11.5-14.5); WHITE BLOOD COUNT 13.4 K/mm3 (4.0-10.0)
[2016-05-26 06:36] LABS: BLOOD UREA NITROGEN 13 MG/DL (7-18); CALCIUM LEVEL 8.6 MG/DL (8.8-10.2); CHLORIDE LEVEL 98 MEQ/L (98-107); CREATININE FOR GFR 0.34 MG/DL (0.55-1.02); GLUCOSE, FASTING 77 MG/DL (83-110); POTASSIUM SERUM 3.7 MEQ/L (3.5-5.1); SODIUM LEVEL 139 MEQ/L (136-145)
[2016-05-26] MEDS ORDERED: MAG SULF 1GM/100ML (MAG RUN) 1 GM in APPROPRIATE DILUENT 1 EA IV ONE (06:45)
[2016-05-26 06:59] LABS: ANION GAP 7 MEQ/L (8-16); CARBON DIOXIDE LEVEL 34 MEQ/L (21-32)
[2016-05-26 08:00] VITALS: BP 129/61
[2016-05-26] MEDS: IPRATROPIUM 0.5MG/ALBUTEROL 2.5MG INH SOL UD 3ML (DUONEB)(J7620) NEB SCH ×3 (08:30→23:53)
[2016-05-26] MEDS: ENOXAPARIN 30 MG/0.3 ML SYR (J1650) SC SCH (08:32)
[2016-05-26] MEDS: SENOKOT S TAB PO SCH (08:33)
[2016-05-26] MEDS: ETHAMBUTOL 400MG TAB PO SCH (08:33)
[2016-05-26] MEDS: AZITHROMYCIN 250 MG TAB PO SCH (08:33)
[2016-05-26] MEDS: CALCIUM/VITAMIN D 500 MG TAB PO SCH (08:34)
[2016-05-26] MEDS: VITAMIN D 1,000 INTERNATIONAL UNITS TABLET PO SCH (08:34)
[2016-05-26] MEDS: FLECAINIDE 50MG TABLET PO SCH ×2 (08:34→21:02)
[2016-05-26] MEDS: predniSONE 10 MG TAB PO SCH (08:34)
[2016-05-26] MEDS: guaiFENesin ER 600 MG TAB PO SCH ×2 (08:34→21:02)
--- NOTE | 2016-05-26 09:48 | IPNPDOC ---
Subjective Date Seen The patient was seen on 05/26/16. Subjective Chief Complaint/HPI The patient is a 85-year-old female admitted with a reason for visit of Syncope. General: Denies: Chills, Fatigue, Malaise, Night Sweats, Normal Appetite, Other Symptoms, ROS Unobtainable Constitutional: Denies: Chills, Fatigue, Fever, Lethargy, Malaise, Night Sweats , Other, Weakness, Weight Loss Eyes: Denies: Conjunctivae inflammation, Eyelid inflammation, Other, Pain, Redness, Vision change ENT: Denies: Dysphagia, Ear Pain, Epistaxis, Head Aches, Other Symptoms, Post Nasal Drip, Sinus Congestion, Sore Throat Skin: Denies: Breakdown, Bruising, Dry, Itching, Jaundice, Lesions, Nail Changes, Other, Rash Pulmonary: Denies: Cough, Dyspnea, Other Symptoms, Pleuritic Chest Pain Cardiovascular: Denies: Chest Pain, Edema, Lt Headedness, Orthopnea, Other Symptoms, Palpitations, Paroxysmal Noc. Dyspnea Gastrointestinal: Denies: Abdominal Pain, Constipation, Diarrhea, Hematochezia , Melena, Nausea, Other Symptoms, Vomiting Neurological: Reports: Other Symptoms (dizziness last night) Objective Physical Examination General Exam: Positive: Alert, Cooperative, No Acute Distress, Other (elderly. frail) Eye Exam: Positive: Conjunctiva & lids normal, EOMI, PERRLA, Negative: Sclera icteric ENT Exam: Positive: Atraumatic, Mucous membr. moist/pink Neck Exam: Positive: Supple Chest Exam: Positive: Clear to auscultation, Diminished Heart Exam: Positive: Rate Normal, Regular Rhythm Telemetry: Positive: Bradycardia Abdomen Exam: Positive: Normal bowel sounds, Soft, Negative: Tenderness Extremity Exam: Negative: Edema Psych Exam: Positive: Oriented x 3 Assessment /Plan Problems (1) Syncope Status: Acute Response to Treatment: Progressing Discussed With: Patient Problem Specific Plan: Monitor Clinically, Repeat Labs, Repeat Tests Problem Text: Etiology not clear. Patient states isolated event, possibly vasovagal. States occurred around 2pm during PT/OT. She had breakfast, lunch and was otherwise a typical day. Denies any bladder/bowel symptoms, does not recall if she was sitting or standing at time of incident. States she was confused when she regained consciousness. Check orthostatics, telemetry monitoring - thus far unremarkable. EEG WNL Echocardiogram no obvious cardiac etiology for syncope. Noted to be bradycardic overnight, difficult to interpret, low voltage. Has not been getting CCB secondary to hold parameters for hazel. (2) ILD (interstitial lung disease) Status: Chronic Discussed With: Patient Problem Specific Plan: Monitor Clinically Problem Text: With chronic hypoxic respiratory failure , 2L O2 at baseline. Follows with Dr. Wu. Continue prednisone. (3) Mycobacterial disease, pulmonary Status: Chronic Discussed With: Patient Problem Text: Follow with Dr. Miller. Ethambutol 800 daily. Azithromycin 250 daily. (4) Atrial tachycardia Status: Chronic Discussed With: Patient Problem Specific Plan: Monitor Clinically Problem Text: Follows with Dr. Diaz. Continue cardizem, flecainide. (5) Underweight Status: Chronic Discussed With: Patient Problem Specific Plan: Monitor Clinically Problem Text: Continue dietary supplements. Plan/VTE VTE Prophylaxis Ordered?: Yes Plan IVF: Continue Diet: Continue Current Activity: Continue Current Therapy: PT, OT Medications: Replete Electrolytes IV Diagnostics: Repeat Labs in AM, EKG VS, I&O, 24H, [facility] Vital Signs/I&O Vital Signs Date Time Temp Pulse Resp B/P Pulse Ox O2 Delivery O2 Flow Rate FiO2 05/26/16 08:34 76 129/61 05/26/16 08:31 Nasal Cannula 2.0 05/26/16 08:00 98.0 19 100 I&O- Last 24 Hours up to 6 AM 05/26/16 06:00 Intake Total 1960 ml Output Total 2175 ml Balance -215 ml Laboratory Data 24H LABS Laboratory Tests 2 05/26/16 04:54: Anion Gap 7L, White Blood Count 13.4H, Red Blood Count 3.56L, Hemoglobin 10.3L, Hematocrit 31.1L, Mean Corpuscular Volume 87.4, Mean Corpuscular Hemoglobin 29.1 , Mean Corpuscular Hemoglobin Concent 33.3, Red Cell Distribution Width 13.5, Platelet Count 423, Neutrophils (%) (Auto) 82.9H, Lymphocytes (%) (Auto) 9.0L, Monocytes (%) (Auto) 6.7H, Eosinophils (%) (Auto) 0.2, Basophils (%) (Auto) 0.3 , Neutrophils # (Auto) 11.1H, Lymphocytes # (Auto) 1.2L, Monocytes # (Auto) 0.9H , Eosinophils # (Auto) 0.0, Basophils # (Auto) 0.0, Blood Urea Nitrogen 13, Creatinine 0.34L, Sodium Level 139, Potassium Level 3.7, Chloride Level 98, Carbon Dioxide Level 34H, Calcium Level 8.6L, Large Unclassified Cells # 0.1, Large Unclassified Cells % 1.0, Magnesium Level 1.7L CBC/BMP Laboratory Tests 05/26/16 04:54 Calcium Level 8.6 L, Red Blood Count 3.56 L, Mean Corpuscular Volume 87.4, Mean Corpuscular Hemoglobin 29.1, Mean Corpuscular Hemoglobin Concent 33.3, Red Cell Distribution Width 13.5, Neutrophils (%) (Auto) 82.9 H, Lymphocytes (%) (Auto) 9.0 L, Monocytes (%) (Auto) 6.7 H, Eosinophils (%) (Auto) 0.2, Basophils (%) ( Auto) 0.3, Neutrophils # (Auto) 11.1 H, Lymphocytes # (Auto) 1.2 L, Monocytes # (Auto) 0.9 H, Eosinophils # (Auto) 0.0, Basophils # (Auto) 0.0 Microbiology Microbiology 05/23/16 Blood Culture - Preliminary, Resulted No Growth after 48 hours. All Specime... 05/23/16 Blood Culture - Preliminary, Resulted No Growth after 48 hours. All Specime... 05/24/16 Urine Culture - Final, Complete OLIVIA MARTINEZ MD May 26, 2016 09:48
--- NOTE | 2016-05-26 13:48 | ECGEPIP ---
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 Nonspecific ST-T abnormalities. No significant change compared with 05/24/2016. Electronically Signed On 05-26-2016 13:48:29 EDT by Mitchell Richard
[2016-05-26 16:00] VITALS: BP 110/58
[2016-05-26 20:07] VITALS: BP 111/59
[2016-05-26] MEDS: PARoxetine 10MG TABLET PO SCH (21:02)
[2016-05-27 00:58] VITALS: BP 119/58
[2016-05-27 05:12] VITALS: BP_SYST 135; BP_SYST 154; BP_DIAS 64; BP_DIAS 68
[2016-05-27 07:02] LABS: BASO % 0.2 % (0.0-1.0); EOS % 0.2 % (0.0-3.0); LARGE UNSTAINED CELL # 0.1 K/mm3 (0.0-0.4); LARGE UNSTAINED CELL % 0.7 % (0.0-4.0); MEAN CORPUSCULAR HEMOGLOBIN 28.3 pg (27.0-33.0); MEAN CORPUSCULAR HGB CONC 31.8 g/dl (32.0-36.5); MEAN CORPUSCULAR VOLUME 89.1 fl (80.0-96.0); MONO # 0.9 K/mm3 (0.0-0.8); MONO % 6.4 % (0.0-5.0); NEUTROPHILS # 11.9 K/mm3 (1.8-7.7); NEUTROPHILS % 85.5 % (36.0-66.0); PLATELET COUNT, AUTOMATED 458 k/mm3 (150-450); RED CELL DISTRIBUTION WIDTH 13.4 % (11.5-14.5); WHITE BLOOD COUNT 13.9 K/mm3 (4.0-10.0)
[2016-05-27] MEDS: IPRATROPIUM 0.5MG/ALBUTEROL 2.5MG INH SOL UD 3ML (DUONEB)(J7620) NEB SCH (07:11)
[2016-05-27 07:37] LABS: ANION GAP 9 MEQ/L (8-16); BLOOD UREA NITROGEN 12 MG/DL (7-18); CALCIUM LEVEL 8.7 MG/DL (8.8-10.2); CARBON DIOXIDE LEVEL 31 MEQ/L (21-32); CHLORIDE LEVEL 97 MEQ/L (98-107); CREATININE FOR GFR 0.38 MG/DL (0.55-1.02); GLOMERULAR FILTRATION RATE > 60.0 (>32); GLUCOSE, FASTING 67 MG/DL (83-110); POTASSIUM SERUM 3.8 MEQ/L (3.5-5.1); SODIUM LEVEL 137 MEQ/L (136-145)
[2016-05-27 07:56] VITALS: BP 127/67
[2016-05-27] MEDS: SENOKOT S TAB PO SCH (08:28)
[2016-05-27] MEDS: guaiFENesin ER 600 MG TAB PO SCH (08:28)
[2016-05-27] MEDS: ENOXAPARIN 30 MG/0.3 ML SYR (J1650) SC SCH (08:28)
[2016-05-27] MEDS: predniSONE 10 MG TAB PO SCH (08:28)
[2016-05-27] MEDS: CALCIUM/VITAMIN D 500 MG TAB PO SCH (08:29)
[2016-05-27] MEDS: VITAMIN D 1,000 INTERNATIONAL UNITS TABLET PO SCH (08:29)
[2016-05-27] MEDS: ETHAMBUTOL 400MG TAB PO SCH (08:29)
[2016-05-27] MEDS: AZITHROMYCIN 250 MG TAB PO SCH (08:30)
[2016-05-27 08:31] VITALS: BP 122/66
[2016-05-27] MEDS: FLECAINIDE 50MG TABLET PO SCH (08:34)
--- NOTE | 2016-05-27 10:33 | DS.PDOC ---
Discharge Summary General Date of Admission May 24, 2016 at 06:43 Date of Discharge 05/27/16 Primary Care Physician: VIDYA SEGAL M.D. Discharge Summary PROCEDURES PERFORMED DURING STAY: [None]. DISCHARGE DIAGNOSES: 1. Syncopal episode - likely orthostasis complicated with bradycardia. 1. Interstitial lung disease, follows with Dr. Wu on oxygen two liters 24 hours a day at home. 2. 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 Miller. 3. History of atrial tachycardia, follows with Dr. Diaz. 4. Mitral valve prolapse with moderately severe mitral regurgitation and left atrium enlargement. 5. Congestive heart failure - diastolic dysfunction CHIEF COMPLAINT: Syncope. HISTORY OF PRESENT ILLNESS: 85 year old female admitted for syncopal episode. Found to be bradycardic with EMS. HOSPITAL COURSE: Patient admitted to telemetry for syncopal episode. Patient found to be orthostatic. Calcium channel bisi held. Blood pressures improved , orthostasis resolved. No further episodes while inpatient. Further workup including EEG, echocardiogram unrevealing for any other etiology. Patient returning to [facility] today for continued physical therapy. DISCHARGE MEDICATIONS: Please see below. ALLERGIES: Please see below. PHYSICAL EXAMINATION ON DISCHARGE: VITAL SIGNS: Please see below. GENERAL: NAD, elderly, frail HEENT: NC/AT, EOMI, PERRL NECK: supple CARDIOVASCULAR EXAMINATION: +S1S2, RRR RESPIRATORY EXAMINATION: CTA B/L ABDOMINAL EXAMINATION: soft, NT, +BS EXTREMITIES: no edema PSYCHIATRIC EXAMINATION: AAOx3 LABORATORY DATA: Please see below. IMAGING: CT Head IMPRESSION: Age-related changes and paranasal sinus mucosal thickening. Echocardiogram: IMPRESSION: 1. Normal global left ventricular systolic function. There are features of left ventricular diastolic dysfunction, as mentioned above. 2. Aortic valve sclerosis without stenosis or aortic regurgitation. 3. Bilateral mitral valve prolapse was noted with probably severe mitral regurgitation. 4. Moderately severe tricuspid regurgitation with moderate pulmonary hypertension. ACTIVITY: As tolerated, as per PT. DIET: Regular diet. DISPOSITION: Discharge to [facility]. DISCHARGE INSTRUCTIONS: 1. Follow up PCP in 3-5 days DISCHARGE CONDITION: [Stable]. TIME SPENT ON DISCHARGE: Greater than 30 minutes. Vital Signs/I&Os Vital Signs Date Time Temp Pulse Resp B/P Pulse Ox O2 Delivery O2 Flow Rate FiO2 05/27/16 08:39 Nasal Cannula 2.0 05/27/16 08:31 68 122/66 05/27/16 07:56 97.8 18 96 I&O- Last 24 Hours up to 6 AM 05/27/16 06:00 Intake Total 1130 ml Output Total 2025 ml Balance -895 ml Laboratory Data Labs 24H Laboratory Tests 2 05/27/16 04:55: Anion Gap 9, White Blood Count 13.9H, Red Blood Count 3.82L, Hemoglobin 10.8L, Hematocrit 34.0L, Mean Corpuscular Volume 89.1, Mean Corpuscular Hemoglobin 28.3 , Mean Corpuscular Hemoglobin Concent 31.8L, Red Cell Distribution Width 13.4, Platelet Count 458H, Neutrophils (%) (Auto) 85.5H, Lymphocytes (%) (Auto) 7.0L, Monocytes (%) (Auto) 6.4H, Eosinophils (%) (Auto) 0.2, Basophils (%) (Auto) 0.2 , Neutrophils # (Auto) 11.9H, Lymphocytes # (Auto) 1.0L, Monocytes # (Auto) 0.9H , Eosinophils # (Auto) 0.0, Basophils # (Auto) 0.0, Blood Urea Nitrogen 12, Creatinine 0.38L, Sodium Level 137, Potassium Level 3.8, Chloride Level 97L, Carbon Dioxide Level 31, Calcium Level 8.7L, Glomerular Filtration Rate > 60.0, Large Unclassified Cells # 0.1, Large Unclassified Cells % 0.7 05/27/16 04:58: Magnesium Level 1.9 CBC/BMP Laboratory Tests 05/27/16 04:55 Calcium Level 8.7 L, Red Blood Count 3.82 L, Mean Corpuscular Volume 89.1, Mean Corpuscular Hemoglobin 28.3, Mean Corpuscular Hemoglobin Concent 31.8 L, Red Cell Distribution Width 13.4, Neutrophils (%) (Auto) 85.5 H, Lymphocytes (%) ( Auto) 7.0 L, Monocytes (%) (Auto) 6.4 H, Eosinophils (%) (Auto) 0.2, Basophils ( %) (Auto) 0.2, Neutrophils # (Auto) 11.9 H, Lymphocytes # (Auto) 1.0 L, Monocytes # (Auto) 0.9 H, Eosinophils # (Auto) 0.0, Basophils # (Auto) 0.0 [facility] 05/23/16 Blood Culture - Preliminary, Resulted No Growth after 72 hours. All specime... 05/23/16 Blood Culture - Preliminary, Resulted No Growth after 72 hours. All specime... 05/24/16 Urine Culture - Final, Complete Discharge Medications Scheduled (Ensure Clear) 1 Liq Liq 240 ML PO DAILY (Reported) (Ensure Clear) 1 Liq Liq 160 LIQ PO QHS (Reported) (Paroxetine) 10 Mg Tab 10 MG PO QHS (Reported) Azithromycin (Azithromycin) 250 Mg Tab 250 MG PO DAILY (Reported) Beclomethasone Dipropionate (Qvar) 80 Mcg/Act Aer 80 MCG INH BID (Reported) Calcium/Vitamin D (Calcium 600 + D 600-400 mg-Unit) 1 Tab Tab 1 TAB PO DAILY ( Reported) Cholecalciferol (Vitamin D) 1,000 Unit Tab 1,000 UNIT PO DAILY (Reported) Cranberry Extract (Cranberry) 500 Mg Cap 500 MG PO DAILY (Reported) Docusate Sod/Senna (Senna S 8.6-50 mg) 1 Tab Tab 1 TAB PO DAILY (Reported) Ethambutol HCl (Ethambutol HCl) 400 Mg Tab 800 MG PO DAILY (Reported) Flecainide Acetate (Flecainide Acetate) 25 Mg Halftab 25 MG PO BID (Reported) Prednisone (Prednisone) 10 Mg Tab 10 MG PO DAILY (Reported) Scheduled PRN Acetaminophen (Tylenol) 325 Mg Tab 650 MG PO Q4H PRN PRN PAIN / FEVER (Reported ) Bisacodyl (Bisacodyl) 10 Mg Sup 10 MG AL DAILY PRN PRN CONSTIPATION (Reported) Milk Of Magnesia (Milk of Magnesia) 1,200 Mg/15 Ml Em 30 ML PO DAILY PRN PRN CONSTIPATION (Reported) Allergies Coded Allergies: No Known Allergies (Unverified , 05/23/16) OLIVIA MARTINEZ MD May 27, 2016 10:33 No Known Allergies (Unverified , 05/23/16) OLIVIA MARTINEZ MD May 27, 2016 10:33
== END 2016-05-27 13:04 | DRG 309 ==
LOC: EDBD 16:48 → M ED 17:43 → M ED INP 21:56 → M PCU 23:17 → OBSVTOIN 05-26 06:43
PROVIDERS: ADMIT Internal Medicine; ATTEND Internal Medicine
DX: R00.1 Bradycardia, unspecified (principal); J84.9 Interstitial pulmonary disease, unspecified; R64 Cachexia; Z68.1 Body mass index [BMI] 19.9 or less, adult; J96.11 Chronic respiratory failure with hypoxia; I50.32 Chronic diastolic (congestive) heart failure; I47.1 Supraventricular tachycardia; I34.0 Nonrheumatic mitral (valve) insufficiency; F32.9 Major depressive disorder, single episode, unspecified; I36.1 Nonrheumatic tricuspid (valve) insufficiency; D64.9 Anemia, unspecified; I27.2 Other secondary pulmonary hypertension; R63.6 Underweight; I95.1 Orthostatic hypotension; K59.00 Constipation, unspecified; Z79.52 Long term (current) use of systemic steroids; Z99.81 Dependence on supplemental oxygen; Z79.899 Other long term (current) drug therapy

== ENCOUNTER → 2016-08-26 | Outpatient (REF) | payer MEDICARE ==
[~2016-08-26] MED LIST: AZIT250T3 PO; BISA10SU4 PR; CALCTAB68 PO; CARD40TA PO; CRAN500C2 PO; DIGO0.12 PO; ENSU-12 PO; ETHA400T PO; FLEC25TA PO; FLUD1TA PO; MILKSUS PO; PARO10TA84 PO; PRED10TA PO; QVAR80AE7 INH; SENN8.6T7 PO; TYLE325T5 PO; VITA100066 PO
== END ==
LOC: M LAB REF 16:40
PROVIDERS: ATTEND Family Medicine
DX: I47.1 Supraventricular tachycardia (principal)

== ENCOUNTER 2016-08-29 11:13 | Inpatient (IN) | payer MEDICARE ==
[~2016-08-29] VITALS: Ht 152.4 cm; Wt 37.3 kg
[~2016-08-29 11:13] MED LIST changes: +AZIT-12 PO; -AZIT250T3 PO; -DIGO0.12 PO; +ETHA1TAB2 PO; -ETHA400T PO; -FLUD1TA PO; +PARO10TA3 PO; -PARO10TA84 PO; -PRED10TA PO; +PRED10TA2 PO; +QVAR1AER2 INH; -QVAR80AE7 INH
[2016-08-29] MEDS ORDERED: DIGO0.12 PO (11:32)
[2016-08-29] MEDS ORDERED: FLUD0.1T PO (11:32)
[2016-08-29] MEDS ORDERED: NS 1,000 ML IV SCH (11:33)
--- NOTE | 2016-08-29 11:56 | REP ---
Clinical: Cough. Dyspnea. Comparison: 05/23/2016. Findings: Mediastinum and cardiac silhouette are within normal limits and stable. Advanced diffuse fibrosis and scarring noted with superimposed lower lobe infiltrates and small pleural effusions. No pneumothorax. Skeletal structures stable. Impression: Chronic fibrosis with superimposed lower lobe infiltrates and small pleural effusions. Signed by Harman Phillip MD 08/29/2016 11:47 A
[2016-08-29] MEDS: IPRATROPIUM 0.5MG/ALBUTEROL 2.5MG INH SOL UD 3ML (DUONEB)(J7620) NEB PRN ×3 (11:58→12:00)
[2016-08-29 12:13] LABS: BASO % 0.2 % (0.0-1.0); EOS % 0.2 % (0.0-3.0); LARGE UNSTAINED CELL # 0.1 K/mm3 (0.0-0.4); LARGE UNSTAINED CELL % 0.6 % (0.0-4.0); LYMPH # 0.9 K/mm3 (1.5-4.5); MEAN CORPUSCULAR HEMOGLOBIN 27.6 pg (27.0-33.0); MEAN CORPUSCULAR HGB CONC 32.7 g/dl (32.0-36.5); MEAN CORPUSCULAR VOLUME 84.3 fl (80.0-96.0); MONO # 0.7 K/mm3 (0.0-0.8); MONO % 3.4 % (0.0-5.0); NEUTROPHILS # 18.7 K/mm3 (1.8-7.7); NEUTROPHILS % 91.6 % (36.0-66.0); PLATELET COUNT, AUTOMATED 378 k/mm3 (150-450); WHITE BLOOD COUNT 20.4 K/mm3 (4.0-10.0)
[2016-08-29 12:51] LABS: ANION GAP 9 MEQ/L (8-16); BLOOD UREA NITROGEN 21 MG/DL (7-18); CALCIUM LEVEL 8.5 MG/DL (8.8-10.2); CARBON DIOXIDE LEVEL 31 MEQ/L (21-32); CHLORIDE LEVEL 96 MEQ/L (98-107); CREATININE FOR GFR 0.44 MG/DL (0.55-1.02); GLOMERULAR FILTRATION RATE > 60.0 (>32); GLUCOSE, FASTING 115 MG/DL (83-110); POTASSIUM SERUM 3.1 MEQ/L (3.5-5.1); SODIUM LEVEL 136 MEQ/L (136-145)
[2016-08-29 13:01] LABS: DIGOXIN LEVEL 0.5 NG/ML (0.5-2.0)
[2016-08-29] MEDS ORDERED: cefTRIAXone SOD 2 GM in D5W MINI-BAG PLUS 50 ML IV ONE (13:15)
[2016-08-29 13:37] LABS: ABG BASE EXCESS 6.9 (-2.0-2.0); ABG HCO3 31.1 MEQ/L (22.0-26.0); ABG PARTIAL PRESSURE CO2 42.9 mmHg (35.0-45.0); ABG PARTIAL PRESSURE O2 111.3 mmHg (75.0-100.0); ABG STANDARD HCO3 30.7 MEQ/L (22.0-26.0); ABG TOTAL CO2 32.4 MEQ/L (23.0-31.0); ABG pH (ARTERIAL) 7.478 UNITS (7.350-7.450)
[2016-08-29] MEDS ORDERED: AZITHROMYCIN INJ 500 MG, VIAL MATE ADAPTER 1 EACH in D5W 250 ML IV ONE (14:00)
[2016-08-29] MEDS: NS 1,000 ML IV SCH (15:32)
[2016-08-29 16:16] VITALS: BP 120/65
--- NOTE | 2016-08-29 17:11 | PHACANCOPD ---
PHARMACY VANCOMYCIN DOSING Pt Demographics Demographics Patient Age:85 , Weight:38.200 , Gender: female Adjusted Body Weight Date: 08/29/16, Adjusted Body Weight: Kg Events Past 24 Hours Events Past 24 Hours: NO: Dialysis, Diuretic Therapy, Change in CrCl, Fever, Elevation in WBC, Pending Diagnostics, Pending Procedures, Other Vancomycin Vancomycin indication: PNEUMONIA Vancomycin Target Ranges: 15-20 mcg/ml Vancomycin Load Y/N: No Load Dose Date Time Vancomycin Load Dose: Date: Time: Vancomycin Dose Date: 08/29/16. Current Vancomycin Dose: [750MG IV Q24H @ 1800] Intermittent Dosing?: No Labs Labs Item Value Date Time White Blood Count 20.4 K/mm3 H 08/29/16 1130 Creatinine 0.44 MG/DL L 08/29/16 1215 Micro Microbiology 08/29/16 Blood Culture, Received Pending 08/29/16 Blood Culture, Received Pending Creatinine Clearance Date:08/29/16. Creatinine Clearance: [>30MLS/MIN]. Pending Labs VANCO TROUGH 08/31/16 @ 1700 Assessment and Plan Maintaining Current Dose?: Yes Reason for dose change: No Dose Change Pharmacist Note Pharmacist Note Date: 08/29/16. Pharmacist note: Patient was initiated on Vanco 750mg IV Q24H @ 1800 for the treatment of pneumonia. Due to patients size and age CrCl is likely >30ml/min. A vanco trough is scheduled to be drawn after the 2nd dose ( 08/31/16 @ 1700). Monitor renal function and adjust dosing as needed. KRISTAN [facility]ED[facility] Aug 29, 2016 17:11
[2016-08-29] MEDS: PIPERACILLIN/TAZOBACTAM SOD 2.25 GM in D5W MINI-BAG PLUS 50 ML IV SCH (17:23)
[2016-08-29] MEDS: ACETAMINOPHEN TAB 650MG DOSE (2X325MG) PO PRN (17:44)
[2016-08-29] MEDS: VANCOMYCIN HCL 750 MG, VIAL MATE ADAPTER 1 EACH in D5W 250 ML IV SCH (18:25)
[2016-08-29 22:00] VITALS: BP 105/68
[2016-08-29] MEDS ORDERED: POTASSIUM CHLORIDE 10% LIQ 20 MEQ/15 ML UDC PO ONE (22:15)
[2016-08-29] MEDS ORDERED: BISACODYL 10 MG SUPP PR PRN (22:15)
--- NOTE | 2016-08-29 22:46 | HPE ---
DATE OF ADMISSION: 08/29/2016 PRIMARY CARE PROVIDER: Sterling William MD CHIEF COMPLAINT: Failure to thrive. HISTORY OF PRESENT ILLNESS: The patient is an 85-year-old female who was discharged from [facility] on Friday. This was after spending 100 days there. At home, she has not been doing well since then, not eating and drinking due to poor appetite. Appears generally weak. Has been coughing nonstop with phlegm. She appears really frail. She was found sitting upright in bed in no distress; however, not answering questions. She is unable to contribute to her history. She was evaluated in the emergency department and given a dose of Rocephin and azithromycin for pneumonia. REVIEW OF SYSTEMS: Unable to obtain from the patient at this point. PAST MEDICAL HISTORY: 1. Interstitial lung disease, managed by Dr. Wu. The patient is on chronic oxygen 24 hours a day at home. 2. History of pneumonia and sputum culture positive for mycobacterium, AVM complex. She is being followed by Dr. Miller. 3. History of atrial tachycardia. 4. History of mitral valve prolapse with moderate to severe mitral regurgitation and left atrium enlargement. Her lawn service supervisor is Dr. Diaz. SURGICAL HISTORY: 1. Status post hysterectomy. 2. Status post bladder prolapse repair. 3. Status post lumbar laminectomy. 4. Status post bilateral cataract extractions. 5. Tooth extractions. FAMILY HISTORY: She has a son with brain and lung cancer. Daughter from ovarian cancer. Another daughter had colon cancer and is still surviving. The patient had several children in total. SOCIAL HISTORY: She lives at home with family. There is no documented history of smoking, drinking or recreational drug use. 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 ALLERGIES TO MEDICATIONS: None. HOME MEDICATIONS: Includes: - Tylenol - azithromycin 250 mg daily - betamethasone 80 mcg inhaled twice a day - Dulcolax 10 mg per rectum daily as needed for constipation - calcium and vitamin D one tablet by mouth daily - cranberry tablets 500 mg once a day - Cardizem 7.5 mg tablet by mouth twice a day - Colace one tablet by mouth daily - Ensure 240 mL by mouth daily - 800 mg daily - flecainide 25 mg tablet twice a day - paroxetine 10 mg daily - milk of magnesia 30 mg as needed - prednisone 10 mg once a day PHYSICAL EXAMINATION: VITAL SIGNS: Blood pressure 120/65, pulse is 72, respiratory rate 20, oxygen saturation 98% on 4 liters of oxygen, temperature 98.6 degrees Fahrenheit. GENERAL: She is awake, oriented to self and place. Alert but unresponsive. Appears cachectic and frail. HEENT: Pupils are equal, round and reactive to light. Extraocular muscles are intact. Anicteric sclerae. Mucous membranes are dry. CARDIOVASCULAR SYSTEM: S1, S2 present. Rate is regular. RESPIRATORY SYSTEM: She has diffuse rhonchi. GASTROINTESTINAL: Abdomen is soft, nontender, nondistended. Bowel sounds are normal. MUSCULOSKELETAL SYSTEM: There is no edema or cyanosis. No calf tenderness. SKIN: She does have an abrasion to the left lower extremity wrapped in band-aid. NEUROLOGIC: Unable to evaluate. She is able to move her extremities. No obvious focal deficit noted. LABORATORY DATA: Hematology: White blood cell is 20.4, hemoglobin 11.4, hematocrit 35, platelets 378. Chemistry: Sodium 136, potassium 3.1, chloride 96, bicarbonate 31, anion gap 9, BUN 21, creatinine 0.44, fasting glucose 155, lactic acid 1.2, calcium 8.5. Liver function tests within normal limits. Troponin normal. BNP 16.8, TSH 0.782. Digoxin level is 0.5. IMAGING STUDIES: Chest x-ray shows chronic fibrocyst with superimposed lower lobe infiltrate and small pleural effusions. IMPRESSION: 1. Failure to thrive. 2. Healthcare acquired pneumonia. 3. Dehydration. 4. Hypokalemia. 5. Interstitial lung disease. 6. History of depression, stable. PLAN: The patient will be admitted to the medical/surgical floor. Continue antibiotic with Zosyn. Cultures are pending; this includes urine, blood and sputum. Continue hydration with saline, potassium supplemented. Consider infectious disease consultation pending result of cultures. Resume her chronic home medications. Please followup electrolytes in the morning. Physical therapy (PT) evaluation and treatment ordered. Deep vein thrombosis (DVT) prophylaxis with subcutaneous Lovenox.
[2016-08-29] MEDS: AZITHROMYCIN 250 MG TAB PO SCH (23:01)
[2016-08-29] MEDS: FLECAINIDE 50MG TABLET PO SCH (23:01)
[2016-08-30] MEDS: NS 1,000 ML IV SCH ×3 (00:40→22:27)
[2016-08-30 06:00] VITALS: BP 126/58
[2016-08-30 06:12] LABS: EOS % 0.1 % (0.0-3.0); LARGE UNSTAINED CELL # 0.1 K/mm3 (0.0-0.4); LYMPH # 0.7 K/mm3 (1.5-4.5); LYMPH % 5.2 % (24.0-44.0); MEAN CORPUSCULAR HEMOGLOBIN 27.6 pg (27.0-33.0); MEAN CORPUSCULAR HGB CONC 32.5 g/dl (32.0-36.5); MONO # 0.6 K/mm3 (0.0-0.8); MONO % 5.7 % (0.0-5.0); NEUTROPHILS # 9.9 K/mm3 (1.8-7.7); PLATELET COUNT, AUTOMATED 354 k/mm3 (150-450); RED CELL DISTRIBUTION WIDTH 14.2 % (11.5-14.5); WHITE BLOOD COUNT 11.2 K/mm3 (4.0-10.0)
[2016-08-30 06:20] LABS: INR 1.04
[2016-08-30 07:04] LABS: ALBUMIN 2.4 GM/DL (3.2-5.2); ALBUMIN/GLOBULIN RATIO 0.59 (1.00-1.93); ALKALINE PHOSPHATASE 56 U/L (45-117); ALT/SGPT 15 U/L (12-78); ANION GAP 5 MEQ/L (8-16); AST/SGOT 18 U/L (15-37); BILIRUBIN,TOTAL 0.3 MG/DL (0.2-1.0); BLOOD UREA NITROGEN 13 MG/DL (7-18); CALCIUM LEVEL 8.6 MG/DL (8.8-10.2); CARBON DIOXIDE LEVEL 32 MEQ/L (21-32); CHLORIDE LEVEL 105 MEQ/L (98-107); CREATININE FOR GFR 0.43 MG/DL (0.55-1.02); GLOMERULAR FILTRATION RATE > 60.0 (>32); GLUCOSE, FASTING 106 MG/DL (83-110); MAGNESIUM LEVEL 1.8 MG/DL (1.8-2.4); POTASSIUM SERUM 3.9 MEQ/L (3.5-5.1); SODIUM LEVEL 142 MEQ/L (136-145); TOTAL PROTEIN 6.5 GM/DL (6.4-8.2)
--- NOTE | 2016-08-30 07:31 | ECGEPIP ---
Stationary ECG Study [facility] - ED Test Date: 2016-08-29 Pat Name: ANNA MARIE PABON Department: Room: - Gender: F Diplomatic Officer: la nena : 1930 Requested By: Sunday Melvin Order Number: [id number] Reading MD: Kera Gomez Measurements Intervals [place] Rate: 89 P: 29 [place]: 173 QRS: -46 QRSD: 86 T: 100 QT: 352 QTc: 429 Interpretive Statements SINUS RHYTHM LEFT ANTERIOR FASCICULAR BLOCK NONSPECIFIC ST & T-WAVE ABNORMALITY INCREASED RATE 05/26/16 Electronically Signed On 08-30-2016 7:30:45 EDT by Kera Gomez
[2016-08-30] MEDS: PIPERACILLIN/TAZOBACTAM SOD 2.25 GM in D5W MINI-BAG PLUS 50 ML IV SCH ×4 (08:36→16:46)
[2016-08-30] MEDS: FLECAINIDE 50MG TABLET PO SCH ×2 (08:37→21:49)
[2016-08-30] MEDS: ETHAMBUTOL 400MG TAB PO SCH (08:37)
[2016-08-30] MEDS: PARoxetine 10MG TABLET PO SCH (08:37)
[2016-08-30] MEDS: FLUDROCORTISONE ACETATE 0.1 MG TAB PO SCH (08:37)
[2016-08-30] MEDS: predniSONE 10 MG TAB PO SCH (08:38)
[2016-08-30] MEDS: DIGOXIN 0.125 MG TAB PO SCH (08:38)
[2016-08-30] MEDS: ENOXAPARIN 40 MG/0.4 ML SYRINGE (J1650) SC SCH (08:38)
[2016-08-30 14:00] VITALS: BP 135/60
--- NOTE | 2016-08-30 15:26 | IPNPDOC ---
Date Seen The patient was seen on 08/30/16. Progress Note SUBJECTIVE: Patient tells me that she feels well today, she tells me that since leaving [facility] on Friday she just progressively was feeling weaker and weaker and had worsening worsening cough that was productive of sputum she does feel mildly improved at this time. Otherwise she has no other specific complaints OBJECTIVE PHYSICAL EXAMINATION: VITAL SIGNS: Please see below. GENERAL: Very frail elderly female sleeping peacefully when I entered the room but easily arousable to verbal stimuli she does not appear to be in any acute distress whatsoever HEENT: Likely round reactive to light she has moist pedis membranes elevation and CVP CARDIOVASCULAR: S1-S2 regular. RESPIRATORY: Breath sounds at the bases scattered rales but rare. ABDOMINAL: Bowel sounds present and soft and nontender EXTREMITIES: The left lower extremity wounds but otherwise no clubbing cyanosis or edema LABORATORY DATA: Please see below. MICROBIOLOGY: Please see below. IMAGING: Chest x-ray 08/29/2016:Chronic fibrosis with superimposed lower lobe infiltrates and small pleural effusions DVT prophylaxis ordered?: Lovenox ASSESSMENT AND PLAN: This is a 85-year-old woman with worsening productive cough and weakness. PROBLEMS: 1. Worsening productive cough with weakness: The patient is currently undergoing treatment for Mycobacterium avium complex with ethambutol B complex and azithromycin for the time being since admission she is continued on these medications she normally follows Dr. zuniga infectious disease on the outpatient setting. There is concern that she may have superimposed healthcare associated bacterial pneumonia as well at the present time is unclear to me if this case. I have asked Dr. zuniga infectious disease to see the patient in consultation for the time being she remains on quite broad antibiotic coverage and at her baseline respiratory status. The patient is on prednisone 2. Interstitial lung disease: Patient is chronically hypoxic respiratory failure related to this and she is on continuous home O2 she appears to be at her baseline respiratory status. 3. Atrial tachycardia: The patient is continued on flecainide and digoxin. 4. Depression: Continue with paroxetine 5. Failure to thrive: The patient does not appear to have done well since her discharge or masses. She was reportedly there for 100 days I will have physical therapy evaluate her and I suspect that she'll likely require long-term placement once her acute medical condition has resolved DISPOSITION: Pending PT home with services versus possibly placement. VS, I&O, 24H, Fishbone Vital Signs/I&O Vital Signs Date Time Temp Pulse Resp B/P (MAP) Pulse Ox O2 Delivery O2 Flow Rate FiO2 08/30/16 14:00 98.4 75 18 135/60 (85) 96 Nasal Cannula 2.0 I&O- Last 24 Hours up to 6 AM 08/30/16 06:00 Intake Total 1045 ml Output Total 500 ml Balance 545 ml Laboratory Data 24H LABS Laboratory Tests 2 08/30/16 04:10: Urine Appearance CLEAR, Urine Color YELLOW, Urine pH 5.0, Urine Specific [place] 1.011, Urine Protein NEGATIVE, Urine Glucose (UA) NEGATIVE, Urine Ketones NEGATIVE, Urine Urobilinogen 0.2, Urine Bilirubin NEGATIVE, Urine Leukocyte Esterase NEGATIVE, Urine Blood NEGATIVE, Urine Nitrite NEGATIVE, Urine WBC (Auto) 1, Urine RBC (Auto) 2, Urine Hyaline Casts (Auto) 0, Urine Bacteria (Auto) NEGATIVE, Urine Squamous Epithelial Cells 0, Urine Sperm (Auto) 08/30/16 05:31: Prothrombin Time 13.7, Prothromb Time International Ratio 1.04 08/30/16 05:32: White Blood Count 11.2H, Red Blood Count 3.60L, Hemoglobin 9.9L, Hematocrit 30.6L, Mean Corpuscular Volume 85.0, Mean Corpuscular Hemoglobin 27.6, Mean Corpuscular Hemoglobin Concent 32.5, Red Cell Distribution Width 14.2, Platelet Count 354, Neutrophils (%) (Auto) 88.0H, Lymphocytes (%) (Auto) 5.2L, Monocytes (%) (Auto) 5.7H, Eosinophils (%) (Auto) 0.1, Basophils (%) (Auto) 0.0, Neutrophils # (Auto) 9.9H, Lymphocytes # (Auto) 0.7L, Monocytes # (Auto) 0.6, Eosinophils # (Auto) 0.0, Basophils # (Auto) 0.0, Large Unclassified Cells % 1.0 , Large Unclassified Cells # 0.1, Anion Gap 5L, Glomerular Filtration Rate > 60.0, Blood Urea Nitrogen 13, Creatinine 0.43L, Sodium Level 142, Potassium Level 3.9#, Chloride Level 105, Carbon Dioxide Level 32, Calcium Level 8.6L, Aspartate Amino Transf (AST/SGOT) 18, Alanine Aminotransferase (ALT/SGPT) 15, Alkaline Phosphatase 56, Total Bilirubin 0.3, Total Protein 6.5, Albumin 2.4L, Magnesium Level 1.8, Albumin/Globulin Ratio 0.59L CBC/BMP Laboratory Tests 08/30/16 05:32 Red Blood Count 3.60 L, Mean Corpuscular Volume 85.0, Mean Corpuscular Hemoglobin 27.6, Mean Corpuscular Hemoglobin Concent 32.5, Red Cell Distribution Width 14.2, Neutrophils (%) (Auto) 88.0 H, Lymphocytes (%) (Auto) 5.2 L, Monocytes (%) (Auto) 5.7 H, Eosinophils (%) (Auto) 0.1, Basophils (%) ( Auto) 0.0, Neutrophils # (Auto) 9.9 H, Lymphocytes # (Auto) 0.7 L, Monocytes # ( Auto) 0.6, Eosinophils # (Auto) 0.0, Basophils # (Auto) 0.0, Calcium Level 8.6 L , Aspartate Amino Transf (AST/SGOT) 18, Alanine Aminotransferase (ALT/SGPT) 15, Alkaline Phosphatase 56, Total Bilirubin 0.3, Total Protein 6.5, Albumin 2.4 L Microbiology Microbiology 08/29/16 Blood Culture - Preliminary, Resulted No growth after 24 hours . All specim... 08/29/16 Blood Culture - Preliminary, Resulted No growth after 24 hours . All specim... 08/29/16 Gram Stain - Final, Resulted 08/29/16 Sputum Culture, Resulted Pending 08/30/16 Urine Culture, Received Pending ROSSY ROMO MD Aug 30, 2016 15:26
--- NOTE | 2016-08-30 17:01 | REP ---
CT of the chest without IV contrast: Comparison is a 01/21/2016 which is the most recent prior study available. Chronic interstitial coarsening is again noted throughout the lung maloney bilaterally compatible with chronic lung disease and chronic pulmonary fibrosis. On the comparison study there was an air-fluid level posterior to the right hilus. This has resolved and is no longer present. However, on the study today there are new large bullae, subpleural peripherally in the right upper lobe, not present previously. There is new focal density posteriorly in the right lower lobe, not present previously. This is nonspecific and could represent progressive fibrosis or could represent acute infiltrate. There are large confluent densities in the left lower lobe, not significantly changed. There is no mediastinal adenopathy. Cardiac size is enlarged. There is a pericardial effusion. This measures 15 mm depth along the right lateral cardiac margin above the diaphragm. The visualized upper abdominal contents are unremarkable. Impression: Extensive bilateral interstitial coarsening compatible with fibrosis. New large bullae peripherally in the right upper lobe, subpleural. The previous air-fluid level posterior to the right hilus has resolved. New right lower lobe infiltrate versus progressive fibrosis. Cardiomegaly and pericardial effusion. Signed by Jarred Mckeon MD 08/30/2016 04:52 P
[2016-08-30] MEDS: VANCOMYCIN HCL 750 MG, VIAL MATE ADAPTER 1 EACH in D5W 250 ML IV SCH (18:18)
[2016-08-30] MEDS ORDERED: AZITHROMYCIN 250 MG TAB PO SCH (21:00)
[2016-08-30] MEDS: ACETAMINOPHEN TAB 650MG DOSE (2X325MG) PO PRN (21:50)
[2016-08-30] MEDS: AZITHROMYCIN 250 MG TAB PO SCH (21:51)
[2016-08-30 22:00] VITALS: BP 140/66
[2016-08-30] MEDS ORDERED: diphenhydrAMINE 25 MG CAP PO ONE (22:15)
[2016-08-31] MEDS: PIPERACILLIN/TAZOBACTAM SOD 2.25 GM in D5W MINI-BAG PLUS 50 ML IV SCH ×3 (01:16→17:02)
[2016-08-31 06:00] VITALS: BP 139/69
[2016-08-31 06:34] LABS: INR 0.99
[2016-08-31 06:35] LABS: BASO % 0.1 % (0.0-1.0); EOS % 0.4 % (0.0-3.0); LARGE UNSTAINED CELL # 0.1 K/mm3 (0.0-0.4); LARGE UNSTAINED CELL % 1.1 % (0.0-4.0); LYMPH # 1.5 K/mm3 (1.5-4.5); LYMPH % 13.5 % (24.0-44.0); MEAN CORPUSCULAR HEMOGLOBIN 27.7 pg (27.0-33.0); MEAN CORPUSCULAR HGB CONC 32.2 g/dl (32.0-36.5); MEAN CORPUSCULAR VOLUME 85.9 fl (80.0-96.0); MONO # 0.8 K/mm3 (0.0-0.8); NEUTROPHILS # 8.4 K/mm3 (1.8-7.7); PLATELET COUNT, AUTOMATED 395 k/mm3 (150-450); RED CELL DISTRIBUTION WIDTH 13.9 % (11.5-14.5); WHITE BLOOD COUNT 10.8 K/mm3 (4.0-10.0)
[2016-08-31 06:48] LABS: ALBUMIN 2.2 GM/DL (3.2-5.2); ALBUMIN/GLOBULIN RATIO 0.76 (1.00-1.93); ALKALINE PHOSPHATASE 55 U/L (45-117); ALT/SGPT 16 U/L (12-78); ANION GAP 7 MEQ/L (8-16); AST/SGOT 19 U/L (15-37); BILIRUBIN,TOTAL 0.3 MG/DL (0.2-1.0); BLOOD UREA NITROGEN 10 MG/DL (7-18); CARBON DIOXIDE LEVEL 31 MEQ/L (21-32); CHLORIDE LEVEL 106 MEQ/L (98-107); CREATININE FOR GFR 0.42 MG/DL (0.55-1.02); GLOMERULAR FILTRATION RATE > 60.0 (>32); GLUCOSE, FASTING 74 MG/DL (83-110); POTASSIUM SERUM 3.2 MEQ/L (3.5-5.1); SODIUM LEVEL 144 MEQ/L (136-145); TOTAL PROTEIN 5.1 GM/DL (6.4-8.2)
[2016-08-31 09:09] VITALS: BP 122/60
[2016-08-31] MEDS: NS 1,000 ML IV SCH (09:18)
[2016-08-31] MEDS: DIGOXIN 0.125 MG TAB PO SCH (10:54)
[2016-08-31] MEDS: FLECAINIDE 50MG TABLET PO SCH ×2 (10:55→20:22)
[2016-08-31] MEDS: FLUDROCORTISONE ACETATE 0.1 MG TAB PO SCH (10:55)
[2016-08-31] MEDS: predniSONE 10 MG TAB PO SCH (10:56)
[2016-08-31] MEDS: PARoxetine 10MG TABLET PO SCH (10:56)
[2016-08-31] MEDS: ETHAMBUTOL 400MG TAB PO SCH (10:56)
[2016-08-31] MEDS: ENOXAPARIN 40 MG/0.4 ML SYRINGE (J1650) SC SCH (10:58)
--- NOTE | 2016-08-31 11:45 | IPNPDOC ---
Date Seen The patient was seen on 08/31/16. Progress Note SUBJECTIVE: Patient tells me that she feels better today, that her cough and sputum have both diminished. Otherwise she has no other specific complaints OBJECTIVE PHYSICAL EXAMINATION: VITAL SIGNS: Please see below. GENERAL: Very frail elderly female sleeping peacefully when I entered the room but easily arousable to verbal stimuli she does not appear to be in any acute distress whatsoever HEENT: Likely round reactive to light she has moist pedis membranes elevation and CVP CARDIOVASCULAR: S1-S2 regular. RESPIRATORY: Breath sounds at the bases scattered rales but rare. ABDOMINAL: Bowel sounds present and soft and nontender EXTREMITIES: The left lower extremity wounds but otherwise no clubbing cyanosis or edema LABORATORY DATA: Please see below. MICROBIOLOGY: Please see below. IMAGING: Chest x-ray 08/29/2016:Chronic fibrosis with superimposed lower lobe infiltrates and small pleural effusions CT CHest: Extensive bilateral interstitial coarsening compatible with fibrosis. New large bullae peripherally in the right upper lobe, subpleural. The previous air-fluid level posterior to the right hilus has resolved. New right lower lobe infiltrate versus progressive fibrosis. Cardiomegaly and pericardial effusion. DVT prophylaxis ordered?: Lovenox ASSESSMENT AND PLAN: This is a 85-year-old woman with worsening productive cough and weakness. PROBLEMS: 1. Worsening productive cough with weakness: The patient is currently undergoing treatment for Mycobacterium avium complex with ethambutol B complex and azithromycin. I did speak with Dr. Miller yesterday there was concern regarding compliance but has brought medications in today and it appears they have been taking meds appropriately. Dr. Miller does not feel this is MRSA PNA and I agree and as such we have d/c'd Vanco. We will cont with Zosyn and f/u culture data. The patient is on prednisone and appears to be at her baseline respiratory status which Dr Miller was able to confirm for me as well. 2. Interstitial lung disease: Patient is chronically hypoxic respiratory failure related to this and she is on continuous home O2 she appears to be at her baseline respiratory status. 3. Atrial tachycardia: The patient is continued on flecainide and digoxin. 4. Depression: Continue with paroxetine 5. Failure to thrive: The patient does not appear to have done well since her discharge. She was reportedly there for 100 days I will have physical therapy and OT evaluate her and I suspect that she'll likely require long-term placement once her acute medical condition has resolved DISPOSITION: Pending PT home with services versus possibly placement. VS, I&O, 24H, Sethbone Vital Signs/I&O Vital Signs Date Time Temp Pulse Resp B/P (MAP) Pulse Ox O2 Delivery O2 Flow Rate FiO2 08/31/16 10:54 63 08/31/16 09:09 97.0 34 122/60 (80) 93 Nasal Cannula 2.0 I&O- Last 24 Hours up to 6 AM 08/31/16 06:00 Intake Total 2450 ml Output Total 700 ml Balance 1750 ml Laboratory Data 24H LABS Laboratory Tests 2 08/31/16 05:25: White Blood Count 10.8H, Red Blood Count 3.52L, Hemoglobin 9.7L, Hematocrit 30.2L, Mean Corpuscular Volume 85.9, Mean Corpuscular Hemoglobin 27.7, Mean Corpuscular Hemoglobin Concent 32.2, Red Cell Distribution Width 13.9, Platelet Count 395, Neutrophils (%) (Auto) 78.0H, Lymphocytes (%) (Auto) 13.5L, Monocytes (%) (Auto) 7.0H, Eosinophils (%) (Auto) 0.4, Basophils (%) (Auto) 0.1 , Neutrophils # (Auto) 8.4H, Lymphocytes # (Auto) 1.5, Monocytes # (Auto) 0.8, Eosinophils # (Auto) 0.0, Basophils # (Auto) 0.0, Large Unclassified Cells % 1.1 , Large Unclassified Cells # 0.1, Prothrombin Time 13.2, Prothromb Time International Ratio 0.99, Anion Gap 7L, Glomerular Filtration Rate > 60.0, Blood Urea Nitrogen 10, Creatinine 0.42L, Sodium Level 144, Potassium Level 3.2L , Chloride Level 106, Carbon Dioxide Level 31, Calcium Level 8.0L, Aspartate Amino Transf (AST/SGOT) 19, Alanine Aminotransferase (ALT/SGPT) 16, Alkaline Phosphatase 55, Total Bilirubin 0.3, Total Protein 5.1#L, Albumin 2.2L, Albumin/ Globulin Ratio 0.76L CBC/BMP Laboratory Tests 08/31/16 05:25 Red Blood Count 3.52 L, Mean Corpuscular Volume 85.9, Mean Corpuscular Hemoglobin 27.7, Mean Corpuscular Hemoglobin Concent 32.2, Red Cell Distribution Width 13.9, Neutrophils (%) (Auto) 78.0 H, Lymphocytes (%) (Auto) 13.5 L, Monocytes (%) (Auto) 7.0 H, Eosinophils (%) (Auto) 0.4, Basophils (%) ( Auto) 0.1, Neutrophils # (Auto) 8.4 H, Lymphocytes # (Auto) 1.5, Monocytes # ( Auto) 0.8, Eosinophils # (Auto) 0.0, Basophils # (Auto) 0.0, Calcium Level 8.0 L , Aspartate Amino Transf (AST/SGOT) 19, Alanine Aminotransferase (ALT/SGPT) 16, Alkaline Phosphatase 55, Total Bilirubin 0.3, Total Protein 5.1 #L, Albumin 2.2 L Microbiology Microbiology 08/29/16 Blood Culture - Preliminary, Resulted No growth after 24 hours . All specim... 08/29/16 Blood Culture - Preliminary, Resulted No growth after 24 hours . All specim... 08/29/16 Gram Stain - Final, Resulted 08/29/16 Sputum Culture, Resulted Pending 08/30/16 Urine Culture - Final, Complete ROSSY ROMO MD Aug 31, 2016 11:45
[2016-08-31] MEDS ORDERED: POTASSIUM CHLORIDE 10 MEQ SR TABLET PO ONE (12:00)
[2016-08-31 13:25] VITALS: BP 149/67
--- NOTE | 2016-08-31 13:42 | ECHO ---
DATE: 08/31/2016 TWO-DIMENSIONAL ECHOCARDIOGRAM REFERRING PHYSICIAN: Dr. Crocker INDICATION: Pleural effusions, shortness of breath, mitral valve disease. The patient measures 60 inches and weighs 81 pounds. DIMENSIONS: IVS 0.9 LV 4.2 LA 2.6 Aorta 3.3 Ascending aorta 3.3 RV 2.1 FINDINGS: The study is of good technical quality. The patient is in sinus rhythm. Left ventricle is normal size and contractility with estimated EF around 60-65%. I do not appreciate any segmental wall motion abnormalities. Right ventricle does not appear enlarged. Left atrium is likely severely enlarged. Right atrium appears grossly normal. Aortic valve has three cusps and normal mobility. There is anterior mitral leaflet prolapse but mobility of both leaflets is preserved. Tricuspid and pulmonic valves appear normal. No pericardial effusion is noted. Inferior vena cava is dilated but collapses with respiration indicative of likely mildly elevated central venous pressure. Aortic root appears normal. Aortic arch and abdominal aorta were not well seen. Doppler interrogation reveals no aortic stenosis or insufficiency. There is probably severe mitral insufficiency with posteriorly and laterally oriented jet corresponding to anterior mitral leaflet prolapse. By PISA technique the regurgitant volume is approximately 50 mL and effective regurgitant orifice is 0.3 cm2 which would correspond to moderate MR, but there is clear-cut reversal of flow in pulmonary veins arguing that the MR is more likely severe. There is trace tricuspid insufficiency. Calculated pulmonary artery pressure is in low 40s, which would correspond to moderate pulmonary hypertension. Mitral inflow pattern and tissue Doppler imaging of mitral annulus reveal grade 2 diastolic dysfunction. CONCLUSIONS: 1. Study is of good technical quality. 2. Normal LV size with normal LV systolic function and grade 2 diastolic dysfunction. 3. Mitral valve prolapse resulting in likely severe mitral insufficiency. 4. No further significant valvular disease. 5. Elevated central venous pressure. 6. At least moderate pulmonary hypertension. COMMENT: SBE prophylaxis is not recommended. If the patient is believed to be a surgical candidate then mitral valve repair should be considered.
--- NOTE | 2016-08-31 14:56 | ECGEPIP ---
Stationary ECG Study [facility] Test Date: 2016-08-31 Pat Name: ANNA MARIE PABON Department: Room: [place] [id number] Gender: F Interventional Sale Consultant: TAMIKA : 1930 Requested By: ROSSY ROMO Order Number: [id number] Reading MD: Kalia Diaz Measurements Intervals [place] Rate: 75 P: 40 [place]: 158 QRS: -43 QRSD: 81 T: 60 QT: 405 QTc: 454 Interpretive Statements SINUS RHYTHM WITH FREQUENT VENTRICULAR PREMATURE COMPLEXES MARKED LEFT AXIS DEVIATION POOR R WAVE PROGRESSION NON-SPECIFIC STT ABNORMALITIES SINCE 08/29/16 VENTRICULAR ECTOPY IS NEW Electronically Signed On 08-31-2016 14:55:50 EDT by Kalia Diaz
[2016-08-31] MEDS: AZITHROMYCIN 250 MG TAB PO SCH (20:23)
[2016-08-31] MEDS: ACETAMINOPHEN TAB 650MG DOSE (2X325MG) PO PRN (20:24)
[2016-08-31 22:00] VITALS: BP 137/63
--- NOTE | 2016-08-31 22:23 | CR ---
DATE OF CONSULTATION: 08/30/2016 Asked to consult by hospitalist for evaluation of pneumonia in a patient with previous history of Mycobacterium avium complex (MAC). HISTORY OF PRESENT ILLNESS: Rebekah is a pleasant 85-year-old female who was brought in yesterday due to increasing shortness of breath with cough productive of yellow phlegm. The patient was very weak, and therefore her daughters felt that she needed to come to the hospital. She had no fever or chills. She had no nausea, vomiting, or diarrhea. She had been at [facility] for rehabilitation for 100 days. After that, the insurance would not pay any further, and therefore she was discharged home on August 23. She had gained about 15 pounds while she was at [facility] ([facility]). She was doing better. She is on chronic oxygen at 2 liters nasal cannula. She is supposed to be on treatment for Mycobacterium avium complex with Zithromax 250 mg daily and ethambutol 800 mg daily. The states that he thinks she has been taking her medication. He gives her her pills in the morning, but when we called [facility], they had not filled the prescription since April. I am not sure if they had some leftovers at home. She was started on Zosyn and vancomycin. The patient is feeling better today. PAST MEDICAL HISTORY: Significant for: 1. Interstitial lung disease. 2. Mycobacterium avium complex. 3. Depression. 4. History of atrial tachycardia, followed by Dr. Diaz, on flecainide. 5. Mitral valve prolapse with severe mitral regurgitation and left atrial enlargement. 6. Degenerative disc disease. PAST SURGICAL HISTORY 1. Hysterectomy. 2. Bladder prolapse. 3. Lumbar laminectomy. 4. Cataract surgery. 5. Tooth extraction. SOCIAL HISTORY: She lives with her at home, but she had spent 100 days at [facility] for rehabilitation. She does not smoke, drink, or use drugs. She has two daughters, who are supportive. 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 FAMILY HISTORY: Son had brain cancer and lung cancer. Daughter just recently of ovarian cancer. REVIEW OF SYSTEMS: She denies any fever or chills. She had cough, which was worse than her baseline with increasing shortness of breath, cough productive of yellow phlegm, generalized weakness, but no nausea, vomiting, or diarrhea. Her appetite is poor. She had gained 15 pounds in the past 3 months while at the [facility]. PHYSICAL EXAMINATION: Temperature is 98.4, pulse 75, respirations 18, blood pressure 135/60, oxygen saturation 96% on 2 liters nasal cannula. HEART: Normal S1, S2. No murmurs. LUNGS: Crackles throughout with inspiration. Few exterior wheezes bilaterally. ABDOMEN: Soft, nontender. No hepatosplenomegaly. EXTREMITIES: Few scabs. Multiple ecchymotic areas. No cellulitis. No redness. No clubbing or cyanosis. HEENT: Oropharynx is clear. Edentulous. She has upper dentures but lost her lower dentures. NECK: Supple. No jugular venous distention (JVD). No bruits. ALLERGIES: No known drug allergies. MEDICATIONS: - Lovenox 40 mg subcutaneous daily - digoxin 0.125 mg daily - ethambutol 800 mg by mouth daily - Zithromax 250 mg daily - flecainide 25 mg by mouth twice a day - Prednisone 10 mg by mouth daily - Paxil 10 mg by mouth daily - Florinef 0.1 mg by mouth daily - Zosyn 2.25 grams intravenous (IV) every 8 hours - vancomycin 750 mg every 24 - Tylenol as needed LABORATORY DATA: Blood cultures, two sets, are no growth after 24 hours. Sputum culture is pending. Sputum Gram stain has many white cells, many gram-positive cocci and chains, pairs, and clusters. Moderate gram-negative rods. Few yeastlike organism with pseudohyphae. Urine culture is pending. Urinalysis had 1 white cell, 2 red cells. Chest x-ray showed chronic fibrosis with superimposed lower lobe infiltrates and small pleural effusions. No pneumothorax. That was a portable chest x-ray done yesterday. IMPRESSION: This is an 85-year-old female with a history of interstitial lung disease, Mycobacterium avium complex, pneumonia, diagnosed in October 2015. Has been on treatment intermittently for the past 10 months, definitely consistently for the past 4 months as she has been at [facility]. The patient did not fill a prescription on her discharge a week ago, but might have some refills at home that he has been giving her. She came back with increasing shortness of breath, cough, and generalized weakness. The patient may have aspiration pneumonia. She did not have a white count, did not have a fever. She is at baseline oxygenation. This is not methicillin-resistant Staphylococcus aureus (MRSA) pneumonia. This is healthcare-associated pneumonia or a viral illness. PLAN: 1. Discontinue IV vancomycin. The patient has no history of MRSA and does not look sick enough for MRSA pneumonia. 2. Continue Zosyn to cover for aspiration pneumonia. Followup on sputum culture and de-escalate therapy based on sputum results. We will obtain followup chest CT. She has not had blood in over 6 months. 3. Sputum acid-fast bacillus (AFB) smear and culture will also be obtained to followup on Mycobacterium avium treatment. Will make the bring the prescription bottles to see if she has been receiving the medication over the past week since discharge home.
[2016-09-01] MEDS: PIPERACILLIN/TAZOBACTAM SOD 2.25 GM in D5W MINI-BAG PLUS 50 ML IV SCH ×2 (00:52→09:18)
[2016-09-01 05:45] LABS: BASO % 0.2 % (0.0-1.0); EOS % 0.4 % (0.0-3.0); LARGE UNSTAINED CELL # 0.1 K/mm3 (0.0-0.4); LARGE UNSTAINED CELL % 1.4 % (0.0-4.0); LYMPH # 1.8 K/mm3 (1.5-4.5); LYMPH % 24.6 % (24.0-44.0); MEAN CORPUSCULAR HEMOGLOBIN 27.2 pg (27.0-33.0); MONO # 0.6 K/mm3 (0.0-0.8); MONO % 9.1 % (0.0-5.0); NEUTROPHILS # 4.4 K/mm3 (1.8-7.7); NEUTROPHILS % 64.3 % (36.0-66.0); PLATELET COUNT, AUTOMATED 380 k/mm3 (150-450); RED CELL DISTRIBUTION WIDTH 13.9 % (11.5-14.5); WHITE BLOOD COUNT 6.9 K/mm3 (4.0-10.0)
[2016-09-01 05:52] LABS: INR 1.01
[2016-09-01 06:00] VITALS: BP 151/77
[2016-09-01 06:01] LABS: ALBUMIN 2.2 GM/DL (3.2-5.2); ALBUMIN/GLOBULIN RATIO 0.59 (1.00-1.93); ALKALINE PHOSPHATASE 54 U/L (45-117); ALT/SGPT 15 U/L (12-78); ANION GAP 4 MEQ/L (8-16); AST/SGOT 17 U/L (15-37); BILIRUBIN,TOTAL 0.3 MG/DL (0.2-1.0); BLOOD UREA NITROGEN 7 MG/DL (7-18); CALCIUM LEVEL 8.1 MG/DL (8.8-10.2); CARBON DIOXIDE LEVEL 35 MEQ/L (21-32); CHLORIDE LEVEL 102 MEQ/L (98-107); CREATININE FOR GFR 0.46 MG/DL (0.55-1.02); GLOMERULAR FILTRATION RATE > 60.0 (>32); GLUCOSE, FASTING 78 MG/DL (83-110); POTASSIUM SERUM 3.3 MEQ/L (3.5-5.1); SODIUM LEVEL 141 MEQ/L (136-145); TOTAL PROTEIN 5.9 GM/DL (6.4-8.2)
[2016-09-01] MEDS: FLECAINIDE 50MG TABLET PO SCH ×2 (10:00→21:37)
[2016-09-01] MEDS: predniSONE 10 MG TAB PO SCH (10:00)
[2016-09-01] MEDS: PARoxetine 10MG TABLET PO SCH (10:00)
[2016-09-01] MEDS: DIGOXIN 0.125 MG TAB PO SCH (10:00)
[2016-09-01] MEDS: FLUDROCORTISONE ACETATE 0.1 MG TAB PO SCH (10:00)
[2016-09-01] MEDS: ETHAMBUTOL 400MG TAB PO SCH (10:01)
[2016-09-01] MEDS: ENOXAPARIN 40 MG/0.4 ML SYRINGE (J1650) SC SCH (10:01)
[2016-09-01 14:00] VITALS: BP 105/57
--- NOTE | 2016-09-01 14:43 | IPNPDOC ---
Date Seen The patient was seen on 09/01/16. Progress Note SUBJECTIVE: Patient tells me that she feels well at this time, her cough is much better. OBJECTIVE PHYSICAL EXAMINATION: VITAL SIGNS: Please see below. GENERAL: Very frail elderly female sitting up eating breakfast in bed comfortably. HEENT: Pupils equally round reactive to light she has moist mucous membranes elevation and CVP CARDIOVASCULAR: S1-S2 regular. RESPIRATORY: Breath sounds at the bases scattered rales but rare. ABDOMINAL: Bowel sounds present and soft and nontender EXTREMITIES: The left lower extremity wounds but otherwise no clubbing cyanosis or edema LABORATORY DATA: Please see below. MICROBIOLOGY: Please see below. IMAGING: Chest x-ray 08/29/2016:Chronic fibrosis with superimposed lower lobe infiltrates and small pleural effusions CT CHest: Extensive bilateral interstitial coarsening compatible with fibrosis. New large bullae peripherally in the right upper lobe, subpleural. The previous air-fluid level posterior to the right hilus has resolved. New right lower lobe infiltrate versus progressive fibrosis. Cardiomegaly and pericardial effusion Echocardiogram:1. Study is of good technical quality. 2. Normal LV size with normal LV systolic function and grade 2 diastolic dysfunction. 3. Mitral valve prolapse resulting in likely severe mitral insufficiency. 4. No further significant valvular disease. 5. Elevated central venous pressure. 6. At least moderate pulmonary hypertension. COMMENT: SBE prophylaxis is not recommended. If the patient is believed to be a surgical candidate then mitral valve repair should be considered.. DVT prophylaxis ordered?: Lovenox ASSESSMENT AND PLAN: This is a 85-year-old woman with worsening productive cough and weakness. PROBLEMS: 1. Worsening productive cough with weakness: The patient is currently undergoing treatment for Mycobacterium avium complex with ethambutol B complex and azithromycin. The patients appears to have been compliant with all medications since leaving [facility]. She was initially on vancomycin and Zosyn however we have suspicion for MRSA and as such she was discontinued from vancomycin. Today I will discontinue Zosyn and switched to Levaquin by mouth based on this. Positive for Klebsiella. It is possible she may have aspirated and we will have her swallow evaluated however no overt obvious signs of choking or coughing with meals. We'll continue to treat her for possible aspiration pneumonia to complete a seven-day course she does appear to be improving quite well 2. Interstitial lung disease: Patient is chronically hypoxic respiratory failure related to this and she is on continuous home O2 she appears to be at her baseline respiratory status. 3. Atrial tachycardia: The patient is continued on flecainide and digoxin. 4. Depression: Continue with paroxetine 5. Mitral regurgitation and mitral valve prolapse: New finding on echocardiogram the recommendation is for evaluation for possible valve replacement. At this time I will let her complete treatment course for her pneumonia with sepsis is resolved can begin having discussions with the patient and family regarding their interest in valve replacement and possible transfer to facility with cardiac surgery 5. Failure to thrive: The patient does not appear to have done well since her discharge. She was reportedly there for 100 days I will have physical therapy and OT evaluate her and I suspect that she'll likely require long-term placement once her acute medical condition has resolved DISPOSITION: Once patient completed her course of antibiotics for pneumonia and she may benefit from transfer to cardiac surgery Center for possible mitral valve replacement VS, I&O, 24H, Fishbone Vital Signs/I&O Vital Signs Date Time Temp Pulse Resp B/P (MAP) Pulse Ox O2 Delivery O2 Flow Rate FiO2 09/01/16 10:00 72 09/01/16 09:20 Nasal Cannula 2.0 09/01/16 06:00 97.5 24 151/77 (101) 94 I&O- Last 24 Hours up to 6 AM 09/01/16 06:00 Intake Total 2170 ml Output Total 1950 ml Balance 220 ml Laboratory Data 24H LABS Laboratory Tests 2 09/01/16 05:07: White Blood Count 6.9, Red Blood Count 3.62L, Hemoglobin 9.9L, Hematocrit 30.8L , Mean Corpuscular Volume 85.0, Mean Corpuscular Hemoglobin 27.2, Mean Corpuscular Hemoglobin Concent 32.0, Red Cell Distribution Width 13.9, Platelet Count 380, Neutrophils (%) (Auto) 64.3, Lymphocytes (%) (Auto) 24.6, Monocytes ( %) (Auto) 9.1H, Eosinophils (%) (Auto) 0.4, Basophils (%) (Auto) 0.2, Neutrophils # (Auto) 4.4, Lymphocytes # (Auto) 1.8, Monocytes # (Auto) 0.6, Eosinophils # (Auto) 0.0, Basophils # (Auto) 0.0, Large Unclassified Cells % 1.4 , Large Unclassified Cells # 0.1, Prothrombin Time 13.4, Prothromb Time International Ratio 1.01, Anion Gap 4L, Glomerular Filtration Rate > 60.0, Blood Urea Nitrogen 7, Creatinine 0.46L, Sodium Level 141, Potassium Level 3.3L , Chloride Level 102, Carbon Dioxide Level 35H, Calcium Level 8.1L, Aspartate Amino Transf (AST/SGOT) 17, Alanine Aminotransferase (ALT/SGPT) 15, Alkaline Phosphatase 54, Total Bilirubin 0.3, Total Protein 5.9L, Albumin 2.2L, Albumin/ Globulin Ratio 0.59L CBC/BMP Laboratory Tests 09/01/16 05:07 Red Blood Count 3.62 L, Mean Corpuscular Volume 85.0, Mean Corpuscular Hemoglobin 27.2, Mean Corpuscular Hemoglobin Concent 32.0, Red Cell Distribution Width 13.9, Neutrophils (%) (Auto) 64.3, Lymphocytes (%) (Auto) 24.6, Monocytes (%) (Auto) 9.1 H, Eosinophils (%) (Auto) 0.4, Basophils (%) ( Auto) 0.2, Neutrophils # (Auto) 4.4, Lymphocytes # (Auto) 1.8, Monocytes # (Auto ) 0.6, Eosinophils # (Auto) 0.0, Basophils # (Auto) 0.0, Calcium Level 8.1 L, Aspartate Amino Transf (AST/SGOT) 17, Alanine Aminotransferase (ALT/SGPT) 15, Alkaline Phosphatase 54, Total Bilirubin 0.3, Total Protein 5.9 L, Albumin 2.2 L Microbiology Microbiology 08/29/16 Blood Culture - Preliminary, Resulted No Growth after 72 hours. All specime... 08/29/16 Blood Culture - Preliminary, Resulted No Growth after 72 hours. All specime... 08/29/16 Gram Stain - Final, Resulted 08/29/16 Sputum Culture - Preliminary, Resulted Klebsiella Pneumoniae Yeast Like Org W/ Pseudomyceli 08/30/16 Urine Culture - Final, Complete ROSSY ROMO MD Sep 01, 2016 14:43
[2016-09-01] MEDS: LevoFLOXacin 500 MG TABLET PO SCH (16:08)
[2016-09-01] MEDS: AZITHROMYCIN 250 MG TAB PO SCH (21:37)
[2016-09-01] MEDS: ACETAMINOPHEN TAB 650MG DOSE (2X325MG) PO PRN (21:38)
[2016-09-01 22:00] VITALS: BP 126/62
[2016-09-02] MEDS: ACETAMINOPHEN TAB 650MG DOSE (2X325MG) PO PRN ×4 (01:46→20:12)
[2016-09-02] MEDS: LevoFLOXacin 500 MG TABLET PO SCH (05:25)
[2016-09-02 06:00] VITALS: BP 138/72
[2016-09-02 06:15] LABS: BASO % 0.2 % (0.0-1.0); EOS % 0.5 % (0.0-3.0); LARGE UNSTAINED CELL # 0.1 K/mm3 (0.0-0.4); LARGE UNSTAINED CELL % 1.6 % (0.0-4.0); LYMPH # 1.9 K/mm3 (1.5-4.5); LYMPH % 19.6 % (24.0-44.0); MEAN CORPUSCULAR HEMOGLOBIN 27.3 pg (27.0-33.0); MEAN CORPUSCULAR VOLUME 85.3 fl (80.0-96.0); MONO # 0.7 K/mm3 (0.0-0.8); MONO % 7.7 % (0.0-5.0); NEUTROPHILS # 6.2 K/mm3 (1.8-7.7); NEUTROPHILS % 70.4 % (36.0-66.0); PLATELET COUNT, AUTOMATED 394 k/mm3 (150-450); RED CELL DISTRIBUTION WIDTH 13.9 % (11.5-14.5); WHITE BLOOD COUNT 8.7 K/mm3 (4.0-10.0)
[2016-09-02 06:24] LABS: INR 1.04
[2016-09-02 06:39] LABS: ALBUMIN 2.2 GM/DL (3.2-5.2); ALBUMIN/GLOBULIN RATIO 0.58 (1.00-1.93); ALKALINE PHOSPHATASE 56 U/L (45-117); ALT/SGPT 18 U/L (12-78); ANION GAP 3 MEQ/L (8-16); AST/SGOT 17 U/L (15-37); BILIRUBIN,TOTAL 0.2 MG/DL (0.2-1.0); BLOOD UREA NITROGEN 10 MG/DL (7-18); CALCIUM LEVEL 8.4 MG/DL (8.8-10.2); CARBON DIOXIDE LEVEL 39 MEQ/L (21-32); CHLORIDE LEVEL 101 MEQ/L (98-107); CREATININE FOR GFR 0.44 MG/DL (0.55-1.02); GLOMERULAR FILTRATION RATE > 60.0 (>32); GLUCOSE, FASTING 76 MG/DL (83-110); SODIUM LEVEL 143 MEQ/L (136-145)
[2016-09-02 07:42] LABS: MAGNESIUM LEVEL 1.8 MG/DL (1.8-2.4)
[2016-09-02] MEDS: predniSONE 10 MG TAB PO SCH (09:34)
[2016-09-02] MEDS: ETHAMBUTOL 400MG TAB PO SCH (09:35)
[2016-09-02] MEDS: PARoxetine 10MG TABLET PO SCH (09:35)
[2016-09-02] MEDS: DIGOXIN 0.125 MG TAB PO SCH (09:35)
[2016-09-02] MEDS: FLUDROCORTISONE ACETATE 0.1 MG TAB PO SCH (09:36)
[2016-09-02] MEDS: POTASSIUM CHLORIDE 10 MEQ SR TABLET PO SCH ×2 (09:37→20:11)
[2016-09-02] MEDS: ENOXAPARIN 40 MG/0.4 ML SYRINGE (J1650) SC SCH (09:45)
[2016-09-02] MEDS ORDERED: MAG SULF 1GM/100ML (MAG RUN) 1 GM in APPROPRIATE DILUENT 1 EA IV ONE (10:00)
[2016-09-02] MEDS: FLECAINIDE 50MG TABLET PO SCH ×2 (11:13→20:10)
--- NOTE | 2016-09-02 13:23 | IPNPDOC ---
Date Seen The patient was seen on 09/02/16. Progress Note SUBJECTIVE: Patient tells me that she feels well at this time and that she has no complaints. OBJECTIVE PHYSICAL EXAMINATION: VITAL SIGNS: Please see below. GENERAL: Very frail elderly female sitting up in bed comfortably. HEENT: Pupils equally round reactive to light she has moist mucous membranes elevation and CVP CARDIOVASCULAR: S1-S2 regular. RESPIRATORY: Breath sounds at the bases scattered rales but rare. ABDOMINAL: Bowel sounds present and soft and nontender EXTREMITIES: The left lower extremity wounds but otherwise no clubbing cyanosis or edema LABORATORY DATA: Please see below. MICROBIOLOGY: Please see below. IMAGING: Chest x-ray 08/29/2016:Chronic fibrosis with superimposed lower lobe infiltrates and small pleural effusions CT Chest: Extensive bilateral interstitial coarsening compatible with fibrosis. New large bullae peripherally in the right upper lobe, subpleural. The previous air-fluid level posterior to the right hilus has resolved. New right lower lobe infiltrate versus progressive fibrosis. Cardiomegaly and pericardial effusion Echocardiogram:1. Study is of good technical quality. 2. Normal LV size with normal LV systolic function and grade 2 diastolic dysfunction. 3. Mitral valve prolapse resulting in likely severe mitral insufficiency. 4. No further significant valvular disease. 5. Elevated central venous pressure. 6. At least moderate pulmonary hypertension. COMMENT: SBE prophylaxis is not recommended. If the patient is believed to be a surgical candidate then mitral valve repair should be considered.. DVT prophylaxis ordered?: Lovenox ASSESSMENT AND PLAN: This is a 85-year-old woman with worsening productive cough and weakness. PROBLEMS: 1.MAC with superimposed Klebsiella PNA: The patient is currently undergoing treatment for Mycobacterium avium complex with ethambutol B complex and azithromycin. The patients appears to have been compliant with all medications since leaving [facility]. She was initially on vancomycin and Zosyn however we have low suspicion for MRSA and as such she was discontinued from vancomycin. She has further been transitioned from Zosyn to Levofloxacin PO. Her sputum has been Positive for Klebsiella. It is possible she may have aspirated and we will have her swallow evaluated however no overt obvious signs of choking or coughing with meals. We'll continue to treat her for possible aspiration pneumonia to complete a seven-day course she does appear to be improving quite well. 2. Interstitial lung disease: Patient is chronically hypoxic respiratory failure related to this and she is on continuous home O2 she appears to be at her baseline respiratory status. 3. Atrial tachycardia: The patient is continued on flecainide and digoxin and follows with Dr. Diaz. 4. Depression: Continue with paroxetine 5. Mitral regurgitation and mitral valve prolapse: I did discuss with Dr. Diaz , previously she was not felt to be a good candidate for valve replacement surgery, and I would rec she follow up with him after discharge. With treatment of her MAC and likely long-term placement she may gain enough strength and be a better candidate in the future. She is not in any overt heart failure. 5. Failure to thrive: The patient does not appear to have done well at home since her discharge. She was reportedly at [facility] for 100 days I will have physical therapy and OT evaluate her and I suspect that she'll likely require long-term placement once her acute medical condition has resolved DISPOSITION: Would benefit best from placement, PFS aware. VS, I&O, 24H, Fishbone Vital Signs/I&O Vital Signs Date Time Temp Pulse Resp B/P (MAP) Pulse Ox O2 Delivery O2 Flow Rate FiO2 09/02/16 10:36 Nasal Cannula 2.0 09/02/16 09:35 60 09/02/16 06:00 98.9 20 138/72 (94) 100 I&O- Last 24 Hours up to 6 AM 09/02/16 06:00 Intake Total 1190 ml Output Total 1600 ml Balance -410 ml Laboratory Data 24H LABS Laboratory Tests 2 09/02/16 05:21: White Blood Count 8.7, Red Blood Count 3.67L, Hemoglobin 10.0L, Hematocrit 31.3L , Mean Corpuscular Volume 85.3, Mean Corpuscular Hemoglobin 27.3, Mean Corpuscular Hemoglobin Concent 32.0, Red Cell Distribution Width 13.9, Platelet Count 394, Neutrophils (%) (Auto) 70.4H, Lymphocytes (%) (Auto) 19.6L, Monocytes (%) (Auto) 7.7H, Eosinophils (%) (Auto) 0.5, Basophils (%) (Auto) 0.2 , Neutrophils # (Auto) 6.2, Lymphocytes # (Auto) 1.9, Monocytes # (Auto) 0.7, Eosinophils # (Auto) 0.0, Basophils # (Auto) 0.0, Large Unclassified Cells % 1.6 , Large Unclassified Cells # 0.1, Prothrombin Time 13.7, Prothromb Time International Ratio 1.04, Anion Gap 3L, Glomerular Filtration Rate > 60.0, Blood Urea Nitrogen 10, Creatinine 0.44L, Sodium Level 143, Potassium Level 3.0L , Chloride Level 101, Carbon Dioxide Level 39H, Calcium Level 8.4L, Aspartate Amino Transf (AST/SGOT) 17, Alanine Aminotransferase (ALT/SGPT) 18, Alkaline Phosphatase 56, Total Bilirubin 0.2, Total Protein 6.0L, Albumin 2.2L, Magnesium Level 1.8, Albumin/Globulin Ratio 0.58L CBC/BMP Laboratory Tests 09/02/16 05:21 Red Blood Count 3.67 L, Mean Corpuscular Volume 85.3, Mean Corpuscular Hemoglobin 27.3, Mean Corpuscular Hemoglobin Concent 32.0, Red Cell Distribution Width 13.9, Neutrophils (%) (Auto) 70.4 H, Lymphocytes (%) (Auto) 19.6 L, Monocytes (%) (Auto) 7.7 H, Eosinophils (%) (Auto) 0.5, Basophils (%) ( Auto) 0.2, Neutrophils # (Auto) 6.2, Lymphocytes # (Auto) 1.9, Monocytes # (Auto ) 0.7, Eosinophils # (Auto) 0.0, Basophils # (Auto) 0.0, Calcium Level 8.4 L, Aspartate Amino Transf (AST/SGOT) 17, Alanine Aminotransferase (ALT/SGPT) 18, Alkaline Phosphatase 56, Total Bilirubin 0.2, Total Protein 6.0 L, Albumin 2.2 L Microbiology Microbiology 08/29/16 Blood Culture - Preliminary, Resulted No Growth after 72 hours. All specime... 08/29/16 Blood Culture - Preliminary, Resulted No Growth after 72 hours. All specime... 09/01/16 Acid Fast Stain - Final, Resulted 09/01/16 Mycobacterial Culture, Resulted Pending 08/29/16 Gram Stain - Final, Resulted 08/29/16 Sputum Culture - Preliminary, Resulted Klebsiella Pneumoniae Yeast Like Org W/ Pseudomyceli 08/30/16 Urine Culture - Final, Complete ROSSY ROMO MD Sep 02, 2016 13:23
[2016-09-02 14:00] VITALS: BP 139/60
[2016-09-02] MEDS: AZITHROMYCIN 250 MG TAB PO SCH (20:10)
[2016-09-02 22:00] VITALS: BP 155/79
[2016-09-03] MEDS: LevoFLOXacin 500 MG TABLET PO SCH (05:29)
[2016-09-03 05:52] LABS: BASO % 0.2 % (0.0-1.0); EOS # 0.1 K/mm3 (0.0-0.50); EOS % 1.4 % (0.0-3.0); LARGE UNSTAINED CELL # 0.1 K/mm3 (0.0-0.4); LARGE UNSTAINED CELL % 1.4 % (0.0-4.0); LYMPH # 2.1 K/mm3 (1.5-4.5); LYMPH % 27.1 % (24.0-44.0); MEAN CORPUSCULAR HEMOGLOBIN 27.1 pg (27.0-33.0); MEAN CORPUSCULAR HGB CONC 31.3 g/dl (32.0-36.5); MEAN CORPUSCULAR VOLUME 86.7 fl (80.0-96.0); MONO # 0.6 K/mm3 (0.0-0.8); MONO % 8.3 % (0.0-5.0); NEUTROPHILS # 4.6 K/mm3 (1.8-7.7); NEUTROPHILS % 61.6 % (36.0-66.0); PLATELET COUNT, AUTOMATED 387 k/mm3 (150-450); RED CELL DISTRIBUTION WIDTH 14.2 % (11.5-14.5); WHITE BLOOD COUNT 7.4 K/mm3 (4.0-10.0)
[2016-09-03 05:58] LABS: INR 0.97
[2016-09-03 06:00] VITALS: BP 149/81
[2016-09-03 06:21] LABS: ALBUMIN 2.4 GM/DL (3.2-5.2); ALBUMIN/GLOBULIN RATIO 0.65 (1.00-1.93); ALKALINE PHOSPHATASE 60 U/L (45-117); ALT/SGPT 16 U/L (12-78); ANION GAP 6 MEQ/L (8-16); AST/SGOT 19 U/L (15-37); BILIRUBIN,TOTAL 0.2 MG/DL (0.2-1.0); BLOOD UREA NITROGEN 9 MG/DL (7-18); CALCIUM LEVEL 8.6 MG/DL (8.8-10.2); CARBON DIOXIDE LEVEL 35 MEQ/L (21-32); CHLORIDE LEVEL 100 MEQ/L (98-107); CREATININE FOR GFR 0.52 MG/DL (0.55-1.02); GLOMERULAR FILTRATION RATE > 60.0 (>32); GLUCOSE, FASTING 77 MG/DL (83-110); POTASSIUM SERUM 3.7 MEQ/L (3.5-5.1); SODIUM LEVEL 141 MEQ/L (136-145); TOTAL PROTEIN 6.1 GM/DL (6.4-8.2)
[2016-09-03] MEDS: FLUDROCORTISONE ACETATE 0.1 MG TAB PO SCH (09:01)
[2016-09-03] MEDS: DIGOXIN 0.125 MG TAB PO SCH (09:01)
[2016-09-03] MEDS: predniSONE 10 MG TAB PO SCH (09:02)
[2016-09-03] MEDS: ETHAMBUTOL 400MG TAB PO SCH (09:03)
[2016-09-03] MEDS: PARoxetine 10MG TABLET PO SCH (09:04)
[2016-09-03] MEDS: POTASSIUM CHLORIDE 10 MEQ SR TABLET PO SCH (09:05)
[2016-09-03] MEDS: ENOXAPARIN 40 MG/0.4 ML SYRINGE (J1650) SC SCH (09:05)
[2016-09-03] MEDS: FLECAINIDE 50MG TABLET PO SCH ×2 (09:09→20:35)
--- NOTE | 2016-09-03 13:39 | IPNPDOC ---
Date Seen The patient was seen on 09/03/16. Progress Note SUBJECTIVE: Patient tells me that she feels great, her cough is reduced and her energy level is improved. OBJECTIVE PHYSICAL EXAMINATION: VITAL SIGNS: Please see below. GENERAL: Very frail elderly female sitting up in bed comfortably. HEENT: Pupils equally round reactive to light she has moist mucous membranes elevation and CVP CARDIOVASCULAR: S1-S2 regular. RESPIRATORY: Breath sounds at the bases scattered rales but rare. ABDOMINAL: Bowel sounds present and soft and nontender EXTREMITIES: The left lower extremity wounds but otherwise no clubbing cyanosis or edema LABORATORY DATA: Please see below. MICROBIOLOGY: Please see below. IMAGING: Chest x-ray 08/29/2016:Chronic fibrosis with superimposed lower lobe infiltrates and small pleural effusions CT Chest: Extensive bilateral interstitial coarsening compatible with fibrosis. New large bullae peripherally in the right upper lobe, subpleural. The previous air-fluid level posterior to the right hilus has resolved. New right lower lobe infiltrate versus progressive fibrosis. Cardiomegaly and pericardial effusion Echocardiogram:1. Study is of good technical quality. 2. Normal LV size with normal LV systolic function and grade 2 diastolic dysfunction. 3. Mitral valve prolapse resulting in likely severe mitral insufficiency. 4. No further significant valvular disease. 5. Elevated central venous pressure. 6. At least moderate pulmonary hypertension. COMMENT: SBE prophylaxis is not recommended. If the patient is believed to be a surgical candidate then mitral valve repair should be considered.. DVT prophylaxis ordered?: Lovenox ASSESSMENT AND PLAN: This is a 85-year-old woman with MAC with superimposed Klebsiella/pseudomonas PNA PROBLEMS: 1.MAC with superimposed Klebsiella/psuedomonas PNA: The patient is currently undergoing treatment for Mycobacterium avium complex with ethambutol B complex and azithromycin. The patients appears to have been compliant with all medications since leaving [facility]. She was initially on vancomycin and Zosyn however we have low suspicion for MRSA and as such she was discontinued from vancomycin. She has further been transitioned from Zosyn to Levofloxacin PO. Her sputum has been Positive for Klebsiella and pseudomonas. It is possible she may have aspirated she did pass a swallow eval but speech has rec a barium swallow in the near future, no emergent need now though. She has improved quite nicely 2. Interstitial lung disease: Patient is chronically hypoxic respiratory failure related to this and she is on continuous home O2 she appears to be at her baseline respiratory status. She is on prednisone 3. Atrial tachycardia: The patient is continued on flecainide and digoxin and follows with Dr. Diaz. 4. Depression: Continue with paroxetine 5. Mitral regurgitation and mitral valve prolapse: I did discuss with Dr. Diaz , previously she was not felt to be a good candidate for valve replacement surgery, and I would rec she follow up with him after discharge. With treatment of her MAC and likely penitentiary placement she may gain enough strength and be a better candidate in the future. She is not in any overt heart failure. 5. Failure to thrive: The patient does not appear to have not done well at home since her discharge from [facility]. She was reportedly at [facility] for 100 days I will have physical therapy and OT evaluate her and I suspect that she'll likely require long-term placement once her acute medical condition has resolved DISPOSITION: Would benefit best from placement, PFS aware. VS, I&O, 24H, Fishbone Vital Signs/I&O Vital Signs Date Time Temp Pulse Resp B/P (MAP) Pulse Ox O2 Delivery O2 Flow Rate FiO2 09/03/16 09:35 Nasal Cannula 2.0 09/03/16 09:01 64 09/03/16 06:00 97.9 16 149/81 (103) 98 I&O- Last 24 Hours up to 6 AM 09/03/16 06:00 Intake Total 1440 ml Output Total 1000 ml Balance 440 ml Laboratory Data 24H LABS Laboratory Tests 2 09/03/16 05:43: White Blood Count 7.4, Red Blood Count 3.81L, Hemoglobin 10.3L, Hematocrit 33.0L , Mean Corpuscular Volume 86.7, Mean Corpuscular Hemoglobin 27.1, Mean Corpuscular Hemoglobin Concent 31.3L, Red Cell Distribution Width 14.2, Platelet Count 387, Neutrophils (%) (Auto) 61.6, Lymphocytes (%) (Auto) 27.1, Monocytes (%) (Auto) 8.3H, Eosinophils (%) (Auto) 1.4, Basophils (%) (Auto) 0.2 , Neutrophils # (Auto) 4.6, Lymphocytes # (Auto) 2.1, Monocytes # (Auto) 0.6, Eosinophils # (Auto) 0.1, Basophils # (Auto) 0.0, Large Unclassified Cells % 1.4 , Large Unclassified Cells # 0.1, Prothrombin Time 13.0, Prothromb Time International Ratio 0.97, Anion Gap 6L, Glomerular Filtration Rate > 60.0, Blood Urea Nitrogen 9, Creatinine 0.52L, Sodium Level 141, Potassium Level 3.7# , Chloride Level 100, Carbon Dioxide Level 35H, Calcium Level 8.6L, Aspartate Amino Transf (AST/SGOT) 19, Alanine Aminotransferase (ALT/SGPT) 16, Alkaline Phosphatase 60, Total Bilirubin 0.2, Total Protein 6.1L, Albumin 2.4L, Albumin/ Globulin Ratio 0.65L CBC/BMP Laboratory Tests 09/03/16 05:43 Red Blood Count 3.81 L, Mean Corpuscular Volume 86.7, Mean Corpuscular Hemoglobin 27.1, Mean Corpuscular Hemoglobin Concent 31.3 L, Red Cell Distribution Width 14.2, Neutrophils (%) (Auto) 61.6, Lymphocytes (%) (Auto) 27.1, Monocytes (%) (Auto) 8.3 H, Eosinophils (%) (Auto) 1.4, Basophils (%) ( Auto) 0.2, Neutrophils # (Auto) 4.6, Lymphocytes # (Auto) 2.1, Monocytes # (Auto ) 0.6, Eosinophils # (Auto) 0.1, Basophils # (Auto) 0.0, Calcium Level 8.6 L, Aspartate Amino Transf (AST/SGOT) 19, Alanine Aminotransferase (ALT/SGPT) 16, Alkaline Phosphatase 60, Total Bilirubin 0.2, Total Protein 6.1 L, Albumin 2.4 L Microbiology Microbiology 08/29/16 Blood Culture - Final, Complete NO GROWTH AFTER 5 DAYS 08/29/16 Blood Culture - Final, Complete NO GROWTH AFTER 5 DAYS 09/01/16 Acid Fast Stain - Final, Resulted 09/01/16 Mycobacterial Culture, Resulted Pending 08/29/16 Gram Stain - Final, Complete 08/29/16 Sputum Culture - Final, Complete Klebsiella Pneumoniae Pseudomonas Aeruginosa Yeast Like Org W/ Pseudomyceli 08/30/16 Urine Culture - Final, Complete ROSSY ROMO MD Sep 03, 2016 13:39
[2016-09-03 14:00] VITALS: BP 149/66
[2016-09-03] MEDS: AZITHROMYCIN 250 MG TAB PO SCH (20:35)
[2016-09-03] MEDS: ACETAMINOPHEN TAB 650MG DOSE (2X325MG) PO PRN (22:38)
[2016-09-04] MEDS: LevoFLOXacin 500 MG TABLET PO SCH (05:24)
[2016-09-04 06:00] VITALS: BP 144/70
[2016-09-04 06:31] LABS: BASO % 0.4 % (0.0-1.0); EOS # 0.2 K/mm3 (0.0-0.50); EOS % 1.6 % (0.0-3.0); LARGE UNSTAINED CELL # 0.2 K/mm3 (0.0-0.4); LARGE UNSTAINED CELL % 1.7 % (0.0-4.0); LYMPH # 2.4 K/mm3 (1.5-4.5); LYMPH % 24.7 % (24.0-44.0); MEAN CORPUSCULAR HEMOGLOBIN 27.3 pg (27.0-33.0); MEAN CORPUSCULAR HGB CONC 31.8 g/dl (32.0-36.5); MEAN CORPUSCULAR VOLUME 85.7 fl (80.0-96.0); MONO # 0.7 K/mm3 (0.0-0.8); MONO % 7.6 % (0.0-5.0); NEUTROPHILS # 6.1 K/mm3 (1.8-7.7); NEUTROPHILS % 64.1 % (36.0-66.0); PLATELET COUNT, AUTOMATED 436 k/mm3 (150-450); RED CELL DISTRIBUTION WIDTH 13.8 % (11.5-14.5); WHITE BLOOD COUNT 9.5 K/mm3 (4.0-10.0)
[2016-09-04 06:35] LABS: INR 0.94
[2016-09-04 06:46] LABS: ALBUMIN 2.4 GM/DL (3.2-5.2); ALBUMIN/GLOBULIN RATIO 0.67 (1.00-1.93); ALKALINE PHOSPHATASE 62 U/L (45-117); ALT/SGPT 19 U/L (12-78); ANION GAP 5 MEQ/L (8-16); AST/SGOT 24 U/L (15-37); BILIRUBIN,TOTAL 0.2 MG/DL (0.2-1.0); BLOOD UREA NITROGEN 12 MG/DL (7-18); CALCIUM LEVEL 8.7 MG/DL (8.8-10.2); CARBON DIOXIDE LEVEL 37 MEQ/L (21-32); CHLORIDE LEVEL 100 MEQ/L (98-107); CREATININE FOR GFR 0.45 MG/DL (0.55-1.02); GLOMERULAR FILTRATION RATE > 60.0 (>32); GLUCOSE, FASTING 84 MG/DL (83-110); POTASSIUM SERUM 3.4 MEQ/L (3.5-5.1); SODIUM LEVEL 142 MEQ/L (136-145)
[2016-09-04] MEDS: ETHAMBUTOL 400MG TAB PO SCH (09:20)
[2016-09-04] MEDS: FLECAINIDE 50MG TABLET PO SCH ×2 (09:20→21:32)
[2016-09-04] MEDS: predniSONE 10 MG TAB PO SCH (09:21)
[2016-09-04] MEDS: DIGOXIN 0.125 MG TAB PO SCH (09:21)
[2016-09-04] MEDS: FLUDROCORTISONE ACETATE 0.1 MG TAB PO SCH (09:21)
[2016-09-04] MEDS: PARoxetine 10MG TABLET PO SCH (09:21)
[2016-09-04] MEDS: POTASSIUM CHLORIDE 10 MEQ SR TABLET PO SCH (09:22)
[2016-09-04] MEDS: ENOXAPARIN 40 MG/0.4 ML SYRINGE (J1650) SC SCH (09:22)
[2016-09-04] MEDS: SENOKOT S TAB PO SCH ×2 (11:23→21:32)
--- NOTE | 2016-09-04 13:08 | IPNPDOC ---
Date Seen The patient was seen on 09/04/16. Progress Note SUBJECTIVE: patient feels same as yesterday , her cough is better, she is breathing better, no chest pain or sob , no abdominal pain did have some nausea this am which resolved after having breakfast. OBJECTIVE PHYSICAL EXAMINATION: VITAL SIGNS: Please see below. GENERAL: Very frail elderly female sitting up in bed comfortably. HEENT: Pupils equally round reactive to light she has moist mucous membranes elevation and CVP CARDIOVASCULAR: S1-S2 regular. RESPIRATORY: Breath sounds at the bases scattered rales but rare. ABDOMINAL: Bowel sounds present and soft and nontender EXTREMITIES: The left lower extremity wounds but otherwise no clubbing cyanosis or edema LABORATORY DATA: Please see below. MICROBIOLOGY: Please see below. IMAGING: Chest x-ray 08/29/2016:Chronic fibrosis with superimposed lower lobe infiltrates and small pleural effusions CT Chest: Extensive bilateral interstitial coarsening compatible with fibrosis. New large bullae peripherally in the right upper lobe, subpleural. The previous air-fluid level posterior to the right hilus has resolved. New right lower lobe infiltrate versus progressive fibrosis. Cardiomegaly and pericardial effusion Echocardiogram:1. Study is of good technical quality. 2. Normal LV size with normal LV systolic function and grade 2 diastolic dysfunction. 3. Mitral valve prolapse resulting in likely severe mitral insufficiency. 4. No further significant valvular disease. 5. Elevated central venous pressure. 6. At least moderate pulmonary hypertension. COMMENT: SBE prophylaxis is not recommended. If the patient is believed to be a surgical candidate then mitral valve repair should be considered.. 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 The patients appears to have been compliant with all medications since leaving [facility]. She was initially on vancomycin and Zosyn however we have low suspicion for MRSA and as such she was discontinued from vancomycin. She has further been transitioned from Zosyn to Levofloxacin PO. Her sputum has been Positive for Klebsiella and pseudomonas. It is possible she may have aspirated she did pass a swallow eval but speech has rec a barium swallow in the near future, no emergent need now though. She has improved quite nicely 2. Interstitial lung disease: Patient is chronic hypoxic respiratory failure related to this and she is on continuous home O2 she appears to be at her baseline respiratory status. She is on prednisone 3. Atrial tachycardia: The patient is continued on flecainide and digoxin and follows with Dr. Diaz. 4. Depression: Continue with paroxetine 5. Mitral regurgitation and mitral valve prolapse: I did discuss with Dr. Diaz , previously she was not felt to be a good candidate for valve replacement surgery, and I would rec she follow up with him after discharge. With treatment of her MAC and likely jail placement she may gain enough strength and be a better candidate in the future. She is not in any overt heart failure. 5. Protein calorie malnutrition: The patient does not appear to have done well at home since her discharge from [facility]. She was reportedly at [facility] for 100 days I will have physical therapy and OT evaluate her and I suspect that she'll likely require long-term placement once her acute medical condition has resolved, will order ensure bid. 6. Diastolic CHF: now patient is not in any acute exacerbation. DISPOSITION: Would benefit best from placement, PFS aware. VS, I&O, 24H, Fishbone Vital Signs/I&O Vital Signs Date Time Temp Pulse Resp B/P (MAP) Pulse Ox O2 Delivery O2 Flow Rate FiO2 09/04/16 09:21 67 09/04/16 09:15 Nasal Cannula 2.0 09/04/16 06:00 98.2 18 144/70 (94) 98 I&O- Last 24 Hours up to 6 AM 09/04/16 06:00 Intake Total 660 ml Output Total 1500 ml Balance -840 ml Laboratory Data 24H LABS Laboratory Tests 2 09/04/16 05:37: White Blood Count 9.5, Red Blood Count 3.91L, Hemoglobin 10.7L, Hematocrit 33.5L , Mean Corpuscular Volume 85.7, Mean Corpuscular Hemoglobin 27.3, Mean Corpuscular Hemoglobin Concent 31.8L, Red Cell Distribution Width 13.8, Platelet Count 436, Neutrophils (%) (Auto) 64.1, Lymphocytes (%) (Auto) 24.7, Monocytes (%) (Auto) 7.6H, Eosinophils (%) (Auto) 1.6, Basophils (%) (Auto) 0.4 , Neutrophils # (Auto) 6.1, Lymphocytes # (Auto) 2.4, Monocytes # (Auto) 0.7, Eosinophils # (Auto) 0.2, Basophils # (Auto) 0.0, Large Unclassified Cells % 1.7 , Large Unclassified Cells # 0.2, Prothrombin Time 12.7, Prothromb Time International Ratio 0.94, Anion Gap 5L, Glomerular Filtration Rate > 60.0, Blood Urea Nitrogen 12, Creatinine 0.45L, Sodium Level 142, Potassium Level 3.4L , Chloride Level 100, Carbon Dioxide Level 37H, Calcium Level 8.7L, Aspartate Amino Transf (AST/SGOT) 24, Alanine Aminotransferase (ALT/SGPT) 19, Alkaline Phosphatase 62, Total Bilirubin 0.2, Total Protein 6.0L, Albumin 2.4L, Albumin/ Globulin Ratio 0.67L CBC/BMP Laboratory Tests 09/04/16 05:37 Red Blood Count 3.91 L, Mean Corpuscular Volume 85.7, Mean Corpuscular Hemoglobin 27.3, Mean Corpuscular Hemoglobin Concent 31.8 L, Red Cell Distribution Width 13.8, Neutrophils (%) (Auto) 64.1, Lymphocytes (%) (Auto) 24.7, Monocytes (%) (Auto) 7.6 H, Eosinophils (%) (Auto) 1.6, Basophils (%) ( Auto) 0.4, Neutrophils # (Auto) 6.1, Lymphocytes # (Auto) 2.4, Monocytes # (Auto ) 0.7, Eosinophils # (Auto) 0.2, Basophils # (Auto) 0.0, Calcium Level 8.7 L, Aspartate Amino Transf (AST/SGOT) 24, Alanine Aminotransferase (ALT/SGPT) 19, Alkaline Phosphatase 62, Total Bilirubin 0.2, Total Protein 6.0 L, Albumin 2.4 L Microbiology Microbiology 08/29/16 Blood Culture - Final, Complete NO GROWTH AFTER 5 DAYS 08/29/16 Blood Culture - Final, Complete NO GROWTH AFTER 5 DAYS 09/01/16 Acid Fast Stain - Final, Resulted 09/01/16 Mycobacterial Culture, Resulted Pending 08/29/16 Gram Stain - Final, Complete 08/29/16 Sputum Culture - Final, Complete Klebsiella Pneumoniae Pseudomonas Aeruginosa Yeast Like Org W/ Pseudomyceli 08/30/16 Urine Culture - Final, Complete VIVIANA RAI MD Sep 04, 2016 13:08
[2016-09-04 14:00] VITALS: BP 104/53
[2016-09-04] MEDS: AZITHROMYCIN 250 MG TAB PO SCH (21:32)
[2016-09-04] MEDS: ACETAMINOPHEN TAB 650MG DOSE (2X325MG) PO PRN (21:34)
[2016-09-04] MEDS: BUDESONIDE 180MCG INHALER (PULMICORT FLEXHALER) INH SCH (21:41)
[2016-09-04 22:00] VITALS: BP 122/66
[2016-09-05 06:00] VITALS: BP 119/71
[2016-09-05 06:02] LABS: BASO % 0.4 % (0.0-1.0); EOS # 0.1 K/mm3 (0.0-0.50); EOS % 1.4 % (0.0-3.0); LARGE UNSTAINED CELL # 0.1 K/mm3 (0.0-0.4); LARGE UNSTAINED CELL % 1.9 % (0.0-4.0); LYMPH % 25.3 % (24.0-44.0); MEAN CORPUSCULAR HGB CONC 31.7 g/dl (32.0-36.5); MEAN CORPUSCULAR VOLUME 84.9 fl (80.0-96.0); MONO # 0.6 K/mm3 (0.0-0.8); MONO % 8.9 % (0.0-5.0); NEUTROPHILS # 4.5 K/mm3 (1.8-7.7); NEUTROPHILS % 62.1 % (36.0-66.0); PLATELET COUNT, AUTOMATED 394 k/mm3 (150-450); WHITE BLOOD COUNT 7.2 K/mm3 (4.0-10.0)
[2016-09-05 06:06] LABS: INR 1.01
[2016-09-05 06:19] LABS: ALBUMIN 2.5 GM/DL (3.2-5.2); ALBUMIN/GLOBULIN RATIO 0.66 (1.00-1.93); ALKALINE PHOSPHATASE 61 U/L (45-117); ALT/SGPT 22 U/L (12-78); ANION GAP 2 MEQ/L (8-16); AST/SGOT 24 U/L (15-37); BILIRUBIN,TOTAL 0.2 MG/DL (0.2-1.0); BLOOD UREA NITROGEN 13 MG/DL (7-18); CALCIUM LEVEL 8.9 MG/DL (8.8-10.2); CARBON DIOXIDE LEVEL 41 MEQ/L (21-32); CHLORIDE LEVEL 99 MEQ/L (98-107); GLOMERULAR FILTRATION RATE > 60.0 (>32); GLUCOSE, FASTING 78 MG/DL (83-110); POTASSIUM SERUM 3.5 MEQ/L (3.5-5.1); SODIUM LEVEL 142 MEQ/L (136-145); TOTAL PROTEIN 6.3 GM/DL (6.4-8.2)
[2016-09-05] MEDS: BUDESONIDE 180MCG INHALER (PULMICORT FLEXHALER) INH SCH (08:17)
[2016-09-05] MEDS: POTASSIUM CHLORIDE 10 MEQ SR TABLET PO SCH (10:18)
[2016-09-05] MEDS: ENOXAPARIN 40 MG/0.4 ML SYRINGE (J1650) SC SCH (10:18)
[2016-09-05] MEDS: SENOKOT S TAB PO SCH (10:19)
[2016-09-05] MEDS: FLUDROCORTISONE ACETATE 0.1 MG TAB PO SCH (10:19)
[2016-09-05] MEDS: PARoxetine 10MG TABLET PO SCH (10:19)
[2016-09-05] MEDS: predniSONE 10 MG TAB PO SCH (10:19)
[2016-09-05] MEDS: FLECAINIDE 50MG TABLET PO SCH (10:19)
[2016-09-05] MEDS: DIGOXIN 0.125 MG TAB PO SCH (10:20)
[2016-09-05] MEDS: ETHAMBUTOL 400MG TAB PO SCH (10:20)
[2016-09-05] MEDS ORDERED: AZIT-12 PO (10:30)
[2016-09-05] MEDS ORDERED: ETHA1TAB2 PO (10:30)
--- NOTE | 2016-09-05 12:59 | IPNPDOC ---
Date Seen The patient was seen on 09/05/16. Progress Note SUBJECTIVE: patient feels same as yesterday , her cough is better, she is breathing better, no chest pain or sob , no abdominal pain. Worked with PT yesterday and walked 1000 ft with nursing yesterday . Had explained that she is doing well and she will be discharged however refuses to go home as she is still weak. I explained that as long as she has the CJ infection and is on antibiotics she will continue to feel weak and days when she will be unwell then she will hae to take help from her family . Explained that medically she does not need any further hospitalisation and staying longer puts her at a risk of developing a secondary infection. head of art are discussing with pateints family regarding discharge planning. OBJECTIVE PHYSICAL EXAMINATION: VITAL SIGNS: Please see below. GENERAL: Very frail elderly female sitting up in bed comfortably. HEENT: Pupils equally round reactive to light she has moist mucous membranes elevation and CVP CARDIOVASCULAR: S1-S2 regular. RESPIRATORY: Breath sounds at the bases scattered rales but rare. ABDOMINAL: Bowel sounds present and soft and nontender EXTREMITIES: The left lower extremity wounds but otherwise no clubbing cyanosis or edema LABORATORY DATA: Please see below. MICROBIOLOGY: Please see below. IMAGING: Chest x-ray 08/29/2016:Chronic fibrosis with superimposed lower lobe infiltrates and small pleural effusions CT Chest: Extensive bilateral interstitial coarsening compatible with fibrosis. New large bullae peripherally in the right upper lobe, subpleural. The previous air-fluid level posterior to the right hilus has resolved. New right lower lobe infiltrate versus progressive fibrosis. Cardiomegaly and pericardial effusion Echocardiogram:1. Study is of good technical quality. 2. Normal LV size with normal LV systolic function and grade 2 diastolic dysfunction. 3. Mitral valve prolapse resulting in likely severe mitral insufficiency. 4. No further significant valvular disease. 5. Elevated central venous pressure. 6. At least moderate pulmonary hypertension. COMMENT: SBE prophylaxis is not recommended. If the patient is believed to be a surgical candidate then mitral valve repair should be considered.. DVT prophylaxis ordered?: Lovenox ASSESSMENT AND PLAN: This is a 85-year-old woman with MAC with superimposed Klebsiella/pseudomonas PNA PROBLEMS: 1.MAC with superimposed Klebsiella/pseudomonas PNA possible health care associated /aspiration: The patient is currently undergoing treatment for Mycobacterium avium complex with ethambutol B complex and azithromycin. The patients appears to have been compliant with all medications since leaving [facility]. She was initially on vancomycin and Zosyn however we have low suspicion for MRSA and as such she was discontinued from vancomycin. She has further been transitioned from Zosyn to Levofloxacin PO. Her sputum has been Positive for Klebsiella and pseudomonas. It is possible she may have aspirated she did pass a swallow eval but speech has rec a barium swallow in the near future, no emergent need now though. She has improved quite nicely 2. Interstitial lung disease: Patient is chronic hypoxic respiratory failure related to this and she is on continuous home O2 she appears to be at her baseline respiratory status. She is on prednisone 3. Atrial tachycardia: The patient is continued on flecainide and digoxin and follows with Dr. Diaz. 4. Depression: Continue with paroxetine 5. Mitral regurgitation and mitral valve prolapse: I did discuss with Dr. Diaz , previously she was not felt to be a good candidate for valve replacement surgery, and I would rec she follow up with him after discharge. With treatment of her MAC and likely [facility]ci placement she may gain enough strength and be a better candidate in the future. She is not in any overt heart failure. 5. Protein calorie malnutrition: The patient does not appear to have done well at home since her discharge from [facility]. She was reportedly at [facility] for 100 days I will have physical therapy and OT evaluate her and I suspect that she'll likely require long-term placement once her acute medical condition has resolved, will order ensure bid. 6. Diastolic CHF: now patient is not in any acute exacerbation. DISPOSITION: Would benefit best from placement, PFS aware. VS, I&O, 24H, Luz Maria Vital Signs/I&O Vital Signs Date Time Temp Pulse Resp B/P (MAP) Pulse Ox O2 Delivery O2 Flow Rate FiO2 09/05/16 10:20 73 09/05/16 10:20 Nasal Cannula 2.0 09/05/16 06:00 98.0 18 119/71 (87) 96 I&O- Last 24 Hours up to 6 AM 09/05/16 05:59 Intake Total 1080 ml Output Total 650 ml Balance 430 ml Laboratory Data 24H LABS Laboratory Tests 2 09/05/16 05:27: White Blood Count 7.2, Red Blood Count 3.79L, Hemoglobin 10.2L, Hematocrit 32.2L , Mean Corpuscular Volume 84.9, Mean Corpuscular Hemoglobin 27.0, Mean Corpuscular Hemoglobin Concent 31.7L, Red Cell Distribution Width 14.0, Platelet Count 394, Neutrophils (%) (Auto) 62.1, Lymphocytes (%) (Auto) 25.3, Monocytes (%) (Auto) 8.9H, Eosinophils (%) (Auto) 1.4, Basophils (%) (Auto) 0.4 , Neutrophils # (Auto) 4.5, Lymphocytes # (Auto) 2.0, Monocytes # (Auto) 0.6, Eosinophils # (Auto) 0.1, Basophils # (Auto) 0.0, Large Unclassified Cells % 1.9 , Large Unclassified Cells # 0.1, Prothrombin Time 13.4, Prothromb Time International Ratio 1.01, Anion Gap 2L, Glomerular Filtration Rate > 60.0, Blood Urea Nitrogen 13, Creatinine 0.50L, Sodium Level 142, Potassium Level 3.5 , Chloride Level 99, Carbon Dioxide Level 41H, Calcium Level 8.9, Aspartate Amino Transf (AST/SGOT) 24, Alanine Aminotransferase (ALT/SGPT) 22, Alkaline Phosphatase 61, Total Bilirubin 0.2, Total Protein 6.3L, Albumin 2.5L, Albumin/ Globulin Ratio 0.66L CBC/BMP Laboratory Tests 09/05/16 05:27 Red Blood Count 3.79 L, Mean Corpuscular Volume 84.9, Mean Corpuscular Hemoglobin 27.0, Mean Corpuscular Hemoglobin Concent 31.7 L, Red Cell Distribution Width 14.0, Neutrophils (%) (Auto) 62.1, Lymphocytes (%) (Auto) 25.3, Monocytes (%) (Auto) 8.9 H, Eosinophils (%) (Auto) 1.4, Basophils (%) ( Auto) 0.4, Neutrophils # (Auto) 4.5, Lymphocytes # (Auto) 2.0, Monocytes # (Auto ) 0.6, Eosinophils # (Auto) 0.1, Basophils # (Auto) 0.0, Calcium Level 8.9, Aspartate Amino Transf (AST/SGOT) 24, Alanine Aminotransferase (ALT/SGPT) 22, Alkaline Phosphatase 61, Total Bilirubin 0.2, Total Protein 6.3 L, Albumin 2.5 L Microbiology Microbiology 08/29/16 Blood Culture - Final, Complete NO GROWTH AFTER 5 DAYS 08/29/16 Blood Culture - Final, Complete NO GROWTH AFTER 5 DAYS 09/01/16 Acid Fast Stain - Final, Resulted 09/01/16 Mycobacterial Culture, Resulted Pending 08/29/16 Gram Stain - Final, Complete 08/29/16 Sputum Culture - Final, Complete Klebsiella Pneumoniae Pseudomonas Aeruginosa Yeast Like Org W/ Pseudomyceli 08/30/16 Urine Culture - Final, Complete VIVIANA RAI MD Sep 05, 2016 12:59
[2016-09-05 14:00] VITALS: BP 118/58
--- NOTE | 2016-09-08 01:54 | DSES ---
DATE OF ADMISSION: 08/29/2016 DATE OF DISCHARGE: 09/05/2016 PRIMARY CARE PROVIDER: Sterling William MD. DISCHARGE DIAGNOSES: 1. Healthcare-associated pneumonia. 2. Aspiration pneumonia. 3. 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 4. Interstitial lung disease. 5. Chronic hypoxic respiratory failure. 6. Chronic diastolic congestive heart failure. 7. Mitral valve prolapse. 8. Severe mitral regurgitation. 9. Pulmonary hypertension and right heart failure. 10. Atrial tachycardia, rate controlled. 11. Depression. 12. Protein calorie malnutrition. DISCHARGE MEDICATIONS: - azithromycin 250 mg by mouth daily - ethambutol 800 mg by mouth daily - acetaminophen 650 mg by mouth every 4 hours as needed for pain or fever - beclomethasone dipropionate inhaler 80 mcg inhalation twice a day - bisacodyl 10 mg per rectum (RI) daily as needed for constipation - cranberry extract 500 mg by mouth daily - digoxin 0.125 mg by mouth daily - flecainide 25 mg by mouth twice a day - fludrocortisone 0.1 mg by mouth daily - paroxetine 10 mg by mouth daily - prednisone 10 mg by mouth daily HOSPITAL COURSE: This is an 85-year-old female with interstitial lung disease, chronic hypoxic respiratory failure, steroid dependent, was diagnosed with Mycobacterium avium complex infection in October of 2015. She was started on treatment for Mycobacterium avium complex, but had been taking medications intermittently. Patient was subsequently admitted in May 2016 for a syncopal episode to our hospital and at that time she was functionally much below her baseline, so was discharged to [facility]). Patient remained in [facility] for 100 days from 05/27/2016 to 08/23/2016. After going home, patient did not fair well. Patient started having increasing shortness of breath, increasing cough productive of yellow phlegm. She was extremely weak, so her family brought her back to the hospital. While in [facility], patient had gained 15 pounds of weight and she was doing better and then worsened after discharge from [facility]. She was diagnosed with possible healthcare-associated pneumonia, as well as possible aspiration pneumonia and was admitted to the hospital. Patient was treated with Zosyn for 7 days, Zosyn then transitioned to levofloxacin. Patient improved with treatment for pneumonia. Patient was at her baseline oxygen requirement level. Patient was seen by physical therapy and she was ambulating well with physical therapy (PT), as well as nursing staff. Patient had a speech and swallow evaluation done, which did not show any aspiration, so the patient was started on a regular diet, which she tolerated well. On the day of discharge, patient did not have any complaints. Vital signs were stable. Functionally close to her baseline. Physical therapy recommended home with services with 24/7 care provided with assistance during all mobility, so the patient was discharged home with family. PHYSICAL EXAMINATION: VITAL SIGNS: Temperature 97.5, pulse 72, respiratory rate 18, blood pressure 118/58, pulse oximetry 94% with 2 liters nasal cannula. GENERAL: Patient awake, alert, oriented times three, sitting up in chair in no acute distress. HEENT: Normocephalic, atraumatic. Moist mucous membranes. Anicteric eyes. CHEST: Overall poor air entry. There are diffuse crackles present. CARDIOVASCULAR: S1, S2 regular. ABDOMEN: Soft, nontender, bowel sounds present. EXTREMITIES: No edema. LABORATORY DATA: WBC 7.2, hemoglobin 10.2, platelets 394. Sodium 142, potassium 3.5, chloride 99, bicarbonate 41, BUN 13, creatinine 0.6, glucose 78, calcium 8.9. Liver function tests are normal. Albumin 2.5. Blood cultures negative. Urine culture negative. Sputum acid fasting was negative. Culture is in progress. Gram stain of sputum showed Klebsiella, pseudohyphae yeast-like organisms. DISPOSITION: Patient is discharged home with family and 24/7 support by family. DISCHARGE INSTRUCTIONS: Patient to followup with primary care provider in 1 week. Patient to followup with Dr. Miller in 2 weeks. Patient to followup with Dr. Diaz as per outpatient appointment. Regular diet. Activity as tolerated.
== END 2016-09-05 18:16 | disposition home health service (06) | DRG 178 ==
LOC: M ED 11:13 → EDBD 11:13 → M ED INP 16:29 → M MSPAV 17:04
PROVIDERS: ADMIT Hospitalist; ATTEND Internal Medicine Nephrology
DX: J15.0 Pneumonia due to Klebsiella pneumoniae (principal); I47.1 Supraventricular tachycardia; J96.11 Chronic respiratory failure with hypoxia; Z68.1 Body mass index [BMI] 19.9 or less, adult; J84.9 Interstitial pulmonary disease, unspecified; I50.32 Chronic diastolic (congestive) heart failure; E46 Unspecified protein-calorie malnutrition; R62.7 Adult failure to thrive; I34.0 Nonrheumatic mitral (valve) insufficiency; F32.9 Major depressive disorder, single episode, unspecified; J15.1 Pneumonia due to Pseudomonas; I34.1 Nonrheumatic mitral (valve) prolapse; A31.0 Pulmonary mycobacterial infection; Z79.52 Long term (current) use of systemic steroids; Z79.899 Other long term (current) drug therapy; Z90.710 Acquired absence of both cervix and uterus; Z80.1 Family history of malignant neoplasm of trachea, bronchus and lung; Z80.41 Family history of malignant neoplasm of ovary; Z80.0 Family history of malignant neoplasm of digestive organs; Z77.22 Contact with and (suspected) exposure to environmental tobacco smoke (acute) (chronic); Y95 Nosocomial condition

== ENCOUNTER 2016-11-02 20:57 | Inpatient (IN) | payer MEDICARE ==
[~2016-11-02] VITALS: Ht 152.4 cm; Wt 35.2 kg
[~2016-11-02 20:57] MED LIST changes: +DIGO0.12 PO; +FLUD0.1T PO
--- NOTE | 2016-11-02 21:33 | REP ---
Clinical: Trauma. Fall. Comparison: 05/23/2016 . Findings: Age-related atrophy with periventricular leukomalacia and microvascular ischemic changes are appreciated. The ventricles and sulci are symmetric. Erickson-white differentiation is maintained. There is no evidence for acute intracranial hemorrhage, mass/mass effect, pathology or infarction. No extra-axial fluid collection. Calvarium is intact. Paranasal sinuses and mastoid air cells are clear. Impression: Age related atrophy and microvascular ischemic changes. No acute intracranial hemorrhage, infarction, or mass/mass effect. Signed by Harman Phillip MD 11/02/2016 09:25 P
[2016-11-02 22:18] LABS: BASO # 0.1 K/mm3 (0.0-0.2); BASO % 0.4 % (0.0-1.0); EOS # 0.1 K/mm3 (0.0-0.50); EOS % 0.8 % (0.0-3.0); LARGE UNSTAINED CELL # 0.1 K/mm3 (0.0-0.4); LARGE UNSTAINED CELL % 0.7 % (0.0-4.0); LYMPH # 0.8 K/mm3 (1.5-4.5); LYMPH % 4.3 % (24.0-44.0); MEAN CORPUSCULAR HEMOGLOBIN 27.1 pg (27.0-33.0); MEAN CORPUSCULAR HGB CONC 32.7 g/dl (32.0-36.5); MEAN CORPUSCULAR VOLUME 82.7 fl (80.0-96.0); MONO # 0.8 K/mm3 (0.0-0.8); MONO % 4.5 % (0.0-5.0); NEUTROPHILS # 15.5 K/mm3 (1.8-7.7); NEUTROPHILS % 89.4 % (36.0-66.0); PLATELET COUNT, AUTOMATED 335 k/mm3 (150-450); RED CELL DISTRIBUTION WIDTH 14.1 % (11.5-14.5); WHITE BLOOD COUNT 17.3 K/mm3 (4.0-10.0)
[2016-11-02 22:24] LABS: INR 0.94
[2016-11-02 22:51] LABS: ANION GAP 9 MEQ/L (8-16); BLOOD UREA NITROGEN 18 MG/DL (7-18); CALCIUM LEVEL 8.9 MG/DL (8.8-10.2); CARBON DIOXIDE LEVEL 31 MEQ/L (21-32); CHLORIDE LEVEL 99 MEQ/L (98-107); CREATININE FOR GFR 0.57 MG/DL (0.55-1.02); DIGOXIN LEVEL 1.1 NG/ML (0.5-2.0); GLOMERULAR FILTRATION RATE > 60.0 (>32); GLUCOSE, FASTING 119 MG/DL (83-110); POTASSIUM SERUM 3.8 MEQ/L (3.5-5.1); SODIUM LEVEL 139 MEQ/L (136-145)
--- NOTE | 2016-11-02 23:20 | HPEPDOC ---
General Date of Admission Nov 02, 2016 at 22:54 Chief Complaint The patient is a 86-year-old female Presented to the ER with continuous left hip pain. 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 Patient presented to the ER with complaints of left hip pain. Patient appears to have confusion and is unable to provide details to her history. Her and daughter are present at the bedside to provide additional information. They have notified me that the patient had fallen yesterday after dinner. Patients noted a loud thud and found the patient sitting up on the ground. He denied that she had any head trauma or loss of consciousness. Denied any incontinence or seizure like activity. After the even, they watched television and went to bed. This morning the patient was complaining of severe left hip pain and they were brought to the ER. As per the , the patient has been more confused over the last 24 hours. He denies that the patient has any dementia or confusion prior to this. I have contacted Jodie Ramos [phone]), another daughter of the patient. She has provided information about the patients past medical history. Home Medications Scheduled (Paroxetine) 10 Mg Tab, 10 MG PO DAILY, (Reported) Azithromycin (Azithromycin) 250 Mg Tab, 250 MG PO DAILY Beclomethasone Dipropionate (Qvar) 80 Mcg/Act Aer, 80 MCG INH BID, (Reported) Cranberry Extract (Cranberry) 500 Mg Cap, 500 MG PO DAILY, (Reported) Digoxin (Digoxin) 0.125 Mg Tab, 0.125 MG PO DAILY, (Reported) Ethambutol HCl (Ethambutol HCl) 400 Mg Tab, 800 MG PO DAILY Flecainide Acetate (Flecainide Acetate) 25 Mg Halftab, 25 MG PO BID, (Reported) Fludrocortisone Acetate (Fludrocortisone Acetate) 0.1 Mg Tab, 0.1 MG PO DAILY, ( Reported) Prednisone (Prednisone) 10 Mg Tab, 10 MG PO DAILY, (Reported) Scheduled PRN Acetaminophen (Tylenol) 325 Mg Tab, 650 MG PO Q4H PRN for PAIN / FEVER, ( Reported) Allergies Coded Allergies: No Known Allergies (Unverified , 05/23/16) Past Medical History Medical History Interstitial lung disease (on 2 L of continuous oxygen), 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 Review of Symptoms Other systems Unable to be obtained as patient is confused Vital Signs - Vitals: BP 183/91, HR 85, RR 20, Sat 95%RA, Temp 98.4F - General: Lying in bed, No acute distress, Drowsy, Oriented to person only - HEENT: NC, AT, PERRLA, EOMI - CVS: RRR, +S1S2 - Lungs: Fair air entry bilaterally, No appreciable wheezing / rales / rhonchi - Abdomen: Soft, Non-distended, Non-tender - Extremities: -- + PPx4, No lower extremity edema, No calf tenderness -- Left leg shortened and externally rotated - Neuro: Decreased movement of left leg 2/2 pain - Skin: No visible rashes Laboratory Data Labs 24H Laboratory Tests 2 11/02/16 22:09: White Blood Count 17.3H, Red Blood Count 4.64, Hemoglobin 12.6, Hematocrit 38.4 , Mean Corpuscular Volume 82.7, Mean Corpuscular Hemoglobin 27.1, Mean Corpuscular Hemoglobin Concent 32.7, Red Cell Distribution Width 14.1, Platelet Count 335, Neutrophils (%) (Auto) 89.4H, Lymphocytes (%) (Auto) 4.3L, Monocytes (%) (Auto) 4.5, Eosinophils (%) (Auto) 0.8, Basophils (%) (Auto) 0.4, Neutrophils # (Auto) 15.5H, Lymphocytes # (Auto) 0.8L, Monocytes # (Auto) 0.8, Eosinophils # (Auto) 0.1, Basophils # (Auto) 0.1, Large Unclassified Cells % 0.7 , Large Unclassified Cells # 0.1, Prothrombin Time 12.7, Prothromb Time International Ratio 0.94 11/02/16 22:10: Anion Gap 9, Glomerular Filtration Rate > 60.0, Blood Urea Nitrogen 18, Creatinine 0.57, Sodium Level 139, Potassium Level 3.8, Chloride Level 99, Carbon Dioxide Level 31, Calcium Level 8.9, Digoxin Level 1.1 CBC/BMP Laboratory Tests 11/02/16 22:09 Red Blood Count 4.64, Mean Corpuscular Volume 82.7, Mean Corpuscular Hemoglobin 27.1, Mean Corpuscular Hemoglobin Concent 32.7, Red Cell Distribution Width 14.1 , Neutrophils (%) (Auto) 89.4 H, Lymphocytes (%) (Auto) 4.3 L, Monocytes (%) ( Auto) 4.5, Eosinophils (%) (Auto) 0.8, Basophils (%) (Auto) 0.4, Neutrophils # ( Auto) 15.5 H, Lymphocytes # (Auto) 0.8 L, Monocytes # (Auto) 0.8, Eosinophils # (Auto) 0.1, Basophils # (Auto) 0.1 11/02/16 22:10 Calcium Level 8.9 Plan / VTE VTE Prophylaxis Ordered?: Yes Plan Plan Acute metabolic encephalopathy - Patients notes that she is more confused over the last 24 hours, he denies a prior history of dementia or confusion - No reported seizure like activity or loss of consciousness - Currently patient is drowsy and oriented only to person - Has not received any pain medications in the ER - Labs pending - CT head: Age related atrophy, microvascular ischemic changes, no acute pathology noted - Will check urinalysis, urine cultures, blood cultures for possible infection - Will keep on PCU monitoring Left hip pain likely 2/2 femoral neck fracture - Presented with continuous hip pain after a fall at home, unwitnessed - XR Left Hip: Unofficial report notes femoral neck fracture - Dr. Hatch will be on consult for orthopedic intervention - Currently not requiring pain medications - c/w Tylenol PRN - Discussed with family that given extensive cardiac history, I cannot provide medical clearance until cardiology has provided input about the risks involved - I have advised the family that if the patient cannot be cleared medically for surgery the comfort measures would be recommended - Will discuss with cardiology (Dr. Diaz) in AM Interstitial lung disease - c/w 2 L of continuous oxygen from home - c/w inhaled therapy CJ infection - Has been diagnosed by Dr. Miller and on treatment intermittently - c/w Azithromycin and Ethambutol History of atrial tachycardia - Currently patient denies any pain or shortness of breath - EKG: sinus rhythm, left anterior fascicular block, mild ST segment depression in V4-V6 - Will check troponin level and trend - Will check digoxin level - c/w Digoxin and flecainide from home Moderate to Severe Mitral Regurgitation - ECHO 08/2016: Normal LV systolic function, Stage 2 Diastolic dysfunction, MV prolapse with severe mitral insufficiency, moderate pulmonary HTN - Has been advised that she was not a candidate for valve replacement - Follows with Dr. Diaz as an outpatient; last seen 2-3 weeks ago Moderate Pulmonary HTN Chronic, Compensated Diastolic CHF Orthostatic hypotension - c/w Fludrocortisone Degenerative disk disease - c/w Tylenol PRN Depression. - c/w Paroxetine DVT prophylaxis - Will start SCDs pending surgery decision / lab work SOHAIL GRADY MD Nov 02, 2016 23:20
[2016-11-03 00:50] VITALS: BP 173/90
[2016-11-03] MEDS ORDERED: LABETALOL HCL 100 MG/20 ML VIAL IV STA (01:43)
[2016-11-03 01:47] LABS: METHADONE URINE NEGATIVE (NEGATIVE)
[2016-11-03] MEDS ORDERED: cefTRIAXone SOD 1 GM in D5W MINI-BAG PLUS 50 ML IV SCH (02:00)
[2016-11-03 02:50] VITALS: BP 161/95
[2016-11-03 02:54] VITALS: BP 161/95
[2016-11-03] MEDS: FLECAINIDE 50MG TABLET PO SCH ×3 (03:02→20:17)
[2016-11-03] MEDS: AZITHROMYCIN 250 MG TAB PO SCH ×2 (03:02→20:17)
[2016-11-03 03:27] VITALS: BP 142/72
[2016-11-03 03:32] LABS: MAGNESIUM LEVEL 2.1 MG/DL (1.8-2.4)
[2016-11-03] MEDS ORDERED: CLOPIDOGREL 75 MG TAB PO ONE (03:45)
[2016-11-03] MEDS ORDERED: ASPIRIN 81 MG CHEW TABLET PO ONE (03:45)
[2016-11-03] MEDS ORDERED: ATORVASTATIN 20 MG TAB PO ONE (03:45)
[2016-11-03] MEDS ORDERED: ENOXAPARIN 40 MG/0.4 ML SYRINGE (J1650) SC ONE (03:52)
[2016-11-03 04:13] LABS: BASO % 0.2 % (0.0-1.0); EOS # 0.1 K/mm3 (0.0-0.50); EOS % 0.5 % (0.0-3.0); LARGE UNSTAINED CELL # 0.1 K/mm3 (0.0-0.4); LARGE UNSTAINED CELL % 0.6 % (0.0-4.0); LYMPH # 1.1 K/mm3 (1.5-4.5); MEAN CORPUSCULAR HEMOGLOBIN 26.6 pg (27.0-33.0); MEAN CORPUSCULAR HGB CONC 32.3 g/dl (32.0-36.5); MEAN CORPUSCULAR VOLUME 82.5 fl (80.0-96.0); MONO # 0.9 K/mm3 (0.0-0.8); MONO % 6.4 % (0.0-5.0); NEUTROPHILS # 12.3 K/mm3 (1.8-7.7); NEUTROPHILS % 85.4 % (36.0-66.0); PLATELET COUNT, AUTOMATED 321 k/mm3 (150-450); RED CELL DISTRIBUTION WIDTH 14.3 % (11.5-14.5); WHITE BLOOD COUNT 14.4 K/mm3 (4.0-10.0)
--- NOTE | 2016-11-03 04:13 | IPNPDOC ---
Text Note Date of Service The patient was seen on 11/03/16. NOTE Patient had results of lab work return which indicated that his troponin level was 0.60. I have contacted Dr. Gustafson (Card Hanger) quality control specialist at 1200AM. After discussion, Dr. Gustafson indicated that the patient will not be a candidate for any surgical procedure given her extensive cardiac and lung disease history. He advised me that the patient should be made WIRE TESTER (Comfort measures only). As for the current, EKG changes and troponin elevation; the rise is likely secondary to cardiac strain given her current condition, but the possibility of NSTEMI cannot be completely ruled out. The patient has a prior MOLST form completed on 05/07/2016 which has indicated that she is DNR, DNI and wants limited medical intervention. She has appointed her (Prakash Souza) as her primary healthcare proxy and her daughter ( Jodie Ramos) as her alternate agent. Given that she is DNR and DNI she is also not a candidate for any cardiac catheterization / coronary intervention. Repeat troponin at 200AM was elevated at 0.66. EKG still shows some ST segment depression in leads V4 to V5. I have given a single dose of ASA 325, Plavix 75, Atorvastatin 40 and started Lovenox 40 SQ daily. We will continue to follow serial enzymes and EKGs. VS,Ximenae, I+O VS, Fishbone, I+O Laboratory Tests 11/02/16 22:09 Red Blood Count 4.64, Mean Corpuscular Volume 82.7, Mean Corpuscular Hemoglobin 27.1, Mean Corpuscular Hemoglobin Concent 32.7, Red Cell Distribution Width 14.1 , Neutrophils (%) (Auto) 89.4 H, Lymphocytes (%) (Auto) 4.3 L, Monocytes (%) ( Auto) 4.5, Eosinophils (%) (Auto) 0.8, Basophils (%) (Auto) 0.4, Neutrophils # ( Auto) 15.5 H, Lymphocytes # (Auto) 0.8 L, Monocytes # (Auto) 0.8, Eosinophils # (Auto) 0.1, Basophils # (Auto) 0.1 11/02/16 22:10 Calcium Level 8.9, Total Creatine Kinase 107 Vital Signs Date Time Temp Pulse Resp B/P (MAP) Pulse Ox O2 Delivery O2 Flow Rate FiO2 11/03/16 03:27 98.4 66 20 142/72 (95) 98 Nasal Cannula 2.0 SOHAIL GRADY MD Nov 03, 2016 04:13
[2016-11-03] MEDS ORDERED: NS 1,000 ML IV SCH (04:15)
[2016-11-03 04:44] LABS: ALBUMIN 2.8 GM/DL (3.2-5.2); ALBUMIN/GLOBULIN RATIO 0.67 (1.00-1.93); ALKALINE PHOSPHATASE 92 U/L (45-117); ALT/SGPT 20 U/L (12-78); ANION GAP 8 MEQ/L (8-16); AST/SGOT 23 U/L (15-37); BILIRUBIN,TOTAL 0.5 MG/DL (0.2-1.0); BLOOD UREA NITROGEN 18 MG/DL (7-18); CALCIUM LEVEL 8.4 MG/DL (8.8-10.2); CARBON DIOXIDE LEVEL 34 MEQ/L (21-32); CHLORIDE LEVEL 99 MEQ/L (98-107); CREATININE FOR GFR 0.46 MG/DL (0.55-1.02); GLOMERULAR FILTRATION RATE > 60.0 (>32); GLUCOSE, FASTING 123 MG/DL (83-110); MAGNESIUM LEVEL 2.2 MG/DL (1.8-2.4); POTASSIUM SERUM 3.3 MEQ/L (3.5-5.1); SODIUM LEVEL 141 MEQ/L (136-145)
[2016-11-03] MEDS ORDERED: POTASSIUM CHLORIDE 10 MEQ SR TABLET PO ONE ×2 (05:00→08:45)
--- NOTE | 2016-11-03 06:41 | ECGEPIP ---
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
[2016-11-03 08:00] VITALS: BP 127/74
[2016-11-03] MEDS: DIGOXIN 0.125 MG TAB PO SCH (08:28)
[2016-11-03] MEDS: predniSONE 10 MG TAB PO SCH (08:29)
[2016-11-03] MEDS: PARoxetine 10MG TABLET PO SCH (08:37)
[2016-11-03] MEDS: ETHAMBUTOL 400MG TAB PO SCH (08:37)
[2016-11-03] MEDS: FLUDROCORTISONE ACETATE 0.1 MG TAB PO SCH (08:38)
--- NOTE | 2016-11-03 08:53 | REP ---
Clinical: Shortness of breath. Comparison: 08/29/2016. Findings: Mediastinum and cardiac silhouette are within normal limits and stable. Lung maloney demonstrate diffuse advanced fibrosis and scarring. Subtle superimposed basilar atelectasis or small right pleural effusion cannot be excluded. No pneumothorax. Skeletal structures demonstrate age-related degenerative changes. Impression: Chronic fibrosis and scarring. Cannot exclude trace superimposed basilar atelectasis or small right pleural effusion. Signed by Harman Phillip MD 11/03/2016 08:45 A
--- NOTE | 2016-11-03 09:18 | REP ---
Clinical: Trauma. Technique: AP and frog lateral views of the left hip. Findings: Displaced comminuted femoral neck fracture is appreciated with overlying soft tissue swelling. Impression: Displaced comminuted femoral neck fracture. Signed by Harman Phillip MD 11/03/2016 09:09 A
--- NOTE | 2016-11-03 09:23 | REP ---
Clinical: Trauma. Technique: AP and lateral views of the right knee. Findings: Age-related osteopenia and degenerative changes limit evaluation. Joint effusion and fracture cannot definitively be excluded. Consider complete examination and/or CT for further investigation. Impression: Cannot exclude fracture fragment based on lateral radiograph. CT should be considered for further investigation. Signed by Harman Phillip MD 11/03/2016 09:14 A
[2016-11-03 12:00] VITALS: BP 126/63
[2016-11-03] MEDS: ACETAMINOPHEN TAB 650MG DOSE (2X325MG) PO PRN (13:09)
--- NOTE | 2016-11-03 13:35 | ECGEPIP ---
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 Left axis deviation; rule out prior IWMI. Slightly slow precordial R-wave progression; could not rule out prior septal injury. Diffuse repolarization abnormalities Not significantly changed from previous day. Electronically Signed On 11-03-2016 13:35:06 EDT by Antelmo Gustafson
--- NOTE | 2016-11-03 13:37 | ECGEPIP ---
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 Left axis deviation; Rule out prior IWMI. Somewhat poor precordial R-wave progression; could not rule out prior septal injury. Nonspecific ST/T-wave abnormalities. No change from earlier this same day Electronically Signed On 11-03-2016 13:37:40 EDT by Antelmo Gustafson
[2016-11-03] MEDS ORDERED: MORPHINE SULF IN 0.9% NACL 100 MG in APPROPRIATE DILUENT 1 EA IV SCH ×2 (14:32)
[2016-11-03] MEDS ORDERED: ONDANSETRON 4 MG ORAL DISINTEGRATING TAB (S0181) PO PRN (14:45)
[2016-11-03] MEDS ORDERED: MORPHINE 10MG/0.5ML ORAL CONCENTRATE SOLUTION U/D SL PRN (14:45)
--- NOTE | 2016-11-03 14:59 | IPN ---
DATE: 11/03/2016 86-year-old female seen at bedside. No overnight issues reported. She is here for a left hip fracture and weakness. OBJECTIVE: Temperature is 98.5, pulse 72, respiratory rate 18, blood pressure (BP) 126/63, and SPO2 is 99% on 2 liters. General: The patient does not appear to be in any acute distress. She says that the hip pain is good as long as she is not moving, but has requested a Armstrong catheter since it hurts for her to get on a bed pain. HEENT: Unremarkable. Lungs: Clear. Heart: Regular rate and rhythm. Abdomen: Soft. Extremities: No edema. No calf tenderness. The left leg is short and externally rotated. LABORATORY DATA: White count 14.4, hemoglobin 11.2, platelets 321. Sodium 141, potassium 3.3 which we will supplement, chloride 99, bicarb 34, anion gap 8, BUN 18, creatinine 0.46, glucose is 123. LFTs unremarkable. Troponin 0.66, 0.61 and 0.37. Her electrocardiogram (EKG) did show some subtle ST depression in leads V4-V6, suggesting possibly a non ST elevation PA. ASSESSMENT/PLAN: 1. Left hip fracture. 2. Acute metabolic encephalopathy. Does appear to be better today. Less confused. Negative workup except for urinary tract infection for which she continues on an antibiotic for. 3. Interstitial lung disease with home oxygen on 2 liters per nasal cannula and inhalation therapy. 4. 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 5. History of atrial tachycardia. 12-lead EKG with mild ST depression in the precordial leads V4-V6. Her troponin did spike and then is trending downward. Digoxin level is unremarkable. Possibility of a non-ST segment elevation myocardial infarction (NSTEMI). 6. Moderate to severe mitral regurgitation. Echo as indicated in the history and physical (H P). Discussed the case with Dr. Diaz. 7. Moderate pulmonary hypertension. 8. Compensated chronic congestive heart failure (CHF). 9. Orthostatic hypotension. Continue cortisone. 10. Degenerative disc disease, on Tylenol. 11. Depression, on paroxetine. 12. Deep vein thrombosis (DVT) prophylaxis. DISPOSITION: The patient has a poor prognosis as indicated above. I have spoken to cardiology as well as pulmonology. She is not a good candidate for surgery. We will not be providing any medical clearance for her. I discussed this with the family regarding my discussions with pulmonology and cardiology. They are agreeable that she should be made comfort measures, as well as, Rebekah who does appear to be competent and able to make decisions currently. Will make her comfort measures only and I will place a hospice consult. They did request that she continues on her home medications however for the time being and will treat her with oral antibiotics regarding the urinary tract infection. Armstrong catheter will be placed as well.
[2016-11-03] MEDS: CEPHALEXIN 500 MG CAP PO SCH (17:15)
[2016-11-03] MEDS: MORPHINE SULFATE ORAL SOLN 10 MG/5 ML UD SL PRN (18:21)
[2016-11-04] MEDS: CEPHALEXIN 500 MG CAP PO SCH ×2 (05:03→16:27)
[2016-11-04] MEDS: DIGOXIN 0.125 MG TAB PO SCH (09:00)
[2016-11-04] MEDS: PARoxetine 10MG TABLET PO SCH (09:00)
[2016-11-04] MEDS: FLUDROCORTISONE ACETATE 0.1 MG TAB PO SCH (09:00)
[2016-11-04] MEDS: predniSONE 10 MG TAB PO SCH (09:00)
[2016-11-04] MEDS: ETHAMBUTOL 400MG TAB PO SCH (09:00)
[2016-11-04] MEDS: ENOXAPARIN 40 MG/0.4 ML SYRINGE (J1650) SC SCH (09:01)
[2016-11-04] MEDS: FLECAINIDE 50MG TABLET PO SCH ×2 (09:01→20:13)
[2016-11-04] MEDS: MORPHINE SULFATE ORAL SOLN 10 MG/5 ML UD SL PRN ×2 (12:46→16:27)
[2016-11-04] MEDS: AZITHROMYCIN 250 MG TAB PO SCH (20:13)
[2016-11-05] MEDS: MORPHINE SULFATE ORAL SOLN 10 MG/5 ML UD SL PRN ×5 (01:22→23:50)
[2016-11-05] MEDS: CEPHALEXIN 500 MG CAP PO SCH ×2 (05:13→17:41)
[2016-11-05] MEDS: predniSONE 10 MG TAB PO SCH (09:07)
[2016-11-05] MEDS: ENOXAPARIN 40 MG/0.4 ML SYRINGE (J1650) SC SCH (09:07)
[2016-11-05] MEDS: PARoxetine 10MG TABLET PO SCH (09:08)
[2016-11-05] MEDS: FLECAINIDE 50MG TABLET PO SCH ×2 (09:09→20:43)
[2016-11-05] MEDS: FLUDROCORTISONE ACETATE 0.1 MG TAB PO SCH (09:09)
[2016-11-05] MEDS: ETHAMBUTOL 400MG TAB PO SCH (09:09)
[2016-11-05] MEDS: DIGOXIN 0.125 MG TAB PO SCH (09:09)
[2016-11-05] MEDS: AZITHROMYCIN 250 MG TAB PO SCH (20:44)
[2016-11-06] MEDS: CEPHALEXIN 500 MG CAP PO SCH ×2 (05:52→17:15)
[2016-11-06] MEDS: MORPHINE SULFATE ORAL SOLN 10 MG/5 ML UD SL PRN ×5 (05:53→20:38)
[2016-11-06] MEDS: ACETAMINOPHEN TAB 650MG DOSE (2X325MG) PO PRN (06:52)
[2016-11-06] MEDS: PARoxetine 10MG TABLET PO SCH (09:28)
[2016-11-06] MEDS: FLUDROCORTISONE ACETATE 0.1 MG TAB PO SCH (09:28)
[2016-11-06] MEDS: ETHAMBUTOL 400MG TAB PO SCH (09:28)
[2016-11-06] MEDS: ENOXAPARIN 40 MG/0.4 ML SYRINGE (J1650) SC SCH (09:28)
[2016-11-06] MEDS: predniSONE 10 MG TAB PO SCH (09:28)
[2016-11-06] MEDS: FLECAINIDE 50MG TABLET PO SCH ×2 (09:29→20:36)
[2016-11-06] MEDS: DIGOXIN 0.125 MG TAB PO SCH (09:29)
[2016-11-06] MEDS: AZITHROMYCIN 250 MG TAB PO SCH (20:36)
[2016-11-06] MEDS ORDERED: BISACODYL 5 MG TAB PO PRN (23:45)
[2016-11-07] MEDS: SENOKOT S TAB PO PRN (05:44)
[2016-11-07] MEDS: CEPHALEXIN 500 MG CAP PO SCH ×2 (05:44→18:12)
[2016-11-07] MEDS: predniSONE 10 MG TAB PO SCH (09:58)
[2016-11-07] MEDS: PARoxetine 10MG TABLET PO SCH (09:58)
[2016-11-07] MEDS: FLUDROCORTISONE ACETATE 0.1 MG TAB PO SCH (09:58)
[2016-11-07] MEDS: FLECAINIDE 50MG TABLET PO SCH ×2 (09:58→20:15)
[2016-11-07] MEDS: ETHAMBUTOL 400MG TAB PO SCH (09:58)
[2016-11-07] MEDS: DIGOXIN 0.125 MG TAB PO SCH (09:59)
[2016-11-07] MEDS: MORPHINE SULFATE ORAL SOLN 10 MG/5 ML UD SL PRN ×4 (10:14→19:27)
[2016-11-07] MEDS: AZITHROMYCIN 250 MG TAB PO SCH (20:15)
[2016-11-08] MEDS: CEPHALEXIN 500 MG CAP PO SCH ×2 (05:15→18:17)
[2016-11-08] MEDS: PARoxetine 10MG TABLET PO SCH (09:40)
[2016-11-08] MEDS: DIGOXIN 0.125 MG TAB PO SCH (09:45)
[2016-11-08] MEDS: ETHAMBUTOL 400MG TAB PO SCH (09:45)
[2016-11-08] MEDS: FLUDROCORTISONE ACETATE 0.1 MG TAB PO SCH (09:45)
[2016-11-08] MEDS: FLECAINIDE 50MG TABLET PO SCH ×2 (09:47→20:14)
[2016-11-08] MEDS: predniSONE 10 MG TAB PO SCH (09:47)
[2016-11-08] MEDS: MORPHINE SULFATE ORAL SOLN 10 MG/5 ML UD SL PRN ×2 (10:28→15:35)
[2016-11-09] MEDS: MORPHINE SULFATE ORAL SOLN 10 MG/5 ML UD SL PRN ×2 (00:33→03:17)
[2016-11-09] MEDS: CEPHALEXIN 500 MG CAP PO SCH ×2 (05:06→18:16)
[2016-11-09] MEDS: ACETAMINOPHEN TAB 650MG DOSE (2X325MG) PO PRN (05:07)
[2016-11-09] MEDS: DIGOXIN 0.125 MG TAB PO SCH (09:40)
[2016-11-09] MEDS: FLUDROCORTISONE ACETATE 0.1 MG TAB PO SCH (09:40)
[2016-11-09] MEDS: PARoxetine 10MG TABLET PO SCH (09:40)
[2016-11-09] MEDS: predniSONE 10 MG TAB PO SCH (09:40)
[2016-11-09] MEDS: ETHAMBUTOL 400MG TAB PO SCH (09:41)
[2016-11-09] MEDS: FLECAINIDE 50MG TABLET PO SCH ×2 (09:41→20:19)
[2016-11-10] MEDS: CEPHALEXIN 500 MG CAP PO SCH (05:57)
[2016-11-10] MEDS: FLUDROCORTISONE ACETATE 0.1 MG TAB PO SCH (08:49)
[2016-11-10] MEDS: DIGOXIN 0.125 MG TAB PO SCH (08:49)
[2016-11-10] MEDS: predniSONE 10 MG TAB PO SCH (08:50)
[2016-11-10] MEDS: ETHAMBUTOL 400MG TAB PO SCH (08:50)
[2016-11-10] MEDS: PARoxetine 10MG TABLET PO SCH (08:50)
[2016-11-10] MEDS: FLECAINIDE 50MG TABLET PO SCH ×2 (08:51→20:01)
[2016-11-10] MEDS: MORPHINE SULFATE ORAL SOLN 10 MG/5 ML UD SL PRN ×2 (10:37→18:38)
[2016-11-10] MEDS: ACETAMINOPHEN TAB 650MG DOSE (2X325MG) PO PRN ×2 (11:32→20:01)
[2016-11-11] MEDS: FLECAINIDE 50MG TABLET PO SCH ×2 (08:43→20:44)
[2016-11-11] MEDS: ETHAMBUTOL 400MG TAB PO SCH (08:43)
[2016-11-11] MEDS: DIGOXIN 0.125 MG TAB PO SCH (08:44)
[2016-11-11] MEDS: predniSONE 10 MG TAB PO SCH (08:44)
[2016-11-11] MEDS: PARoxetine 10MG TABLET PO SCH (08:44)
[2016-11-11] MEDS: FLUDROCORTISONE ACETATE 0.1 MG TAB PO SCH (08:44)
[2016-11-11] MEDS: SENOKOT S TAB PO PRN (08:46)
[2016-11-11] MEDS: MORPHINE SULFATE ORAL SOLN 10 MG/5 ML UD SL PRN ×2 (17:52→20:45)
[2016-11-12] MEDS: FLECAINIDE 50MG TABLET PO SCH ×2 (09:46→21:30)
[2016-11-12] MEDS: FLUDROCORTISONE ACETATE 0.1 MG TAB PO SCH (09:46)
[2016-11-12] MEDS: predniSONE 10 MG TAB PO SCH (09:46)
[2016-11-12] MEDS: ETHAMBUTOL 400MG TAB PO SCH (09:46)
[2016-11-12] MEDS: PARoxetine 10MG TABLET PO SCH (09:46)
[2016-11-12] MEDS: DIGOXIN 0.125 MG TAB PO SCH (09:47)
[2016-11-12] MEDS: MORPHINE SULFATE ORAL SOLN 10 MG/5 ML UD SL PRN (16:55)
[2016-11-13] MEDS: ETHAMBUTOL 400MG TAB PO SCH (10:01)
[2016-11-13] MEDS: predniSONE 10 MG TAB PO SCH (10:01)
[2016-11-13] MEDS: DIGOXIN 0.125 MG TAB PO SCH (10:02)
[2016-11-13] MEDS: FLECAINIDE 50MG TABLET PO SCH (10:02)
[2016-11-13] MEDS: PARoxetine 10MG TABLET PO SCH (10:02)
[2016-11-13] MEDS ORDERED: FLEC50TA PO (10:29)
[2016-11-13] MEDS ORDERED: HYOS125TA PO (10:29)
[2016-11-13] MEDS ORDERED: ETHA1TAB2 PO (10:29)
[2016-11-13] MEDS ORDERED: FLUD0.1T PO (10:29)
[2016-11-13] MEDS ORDERED: DIGO0.12 PO (10:29)
[2016-11-13] MEDS ORDERED: SENN1TAB2 PO (10:29)
[2016-11-13] MEDS ORDERED: ONDA4TAB6 PO (10:29)
[2016-11-13] MEDS ORDERED: LORA0.5T11 PO (10:29)
[2016-11-13] MEDS ORDERED: MORP20SO3 PO (10:29)
[2016-11-13] MEDS ORDERED: MAPA325T3 PO (10:29)
[2016-11-13] MEDS ORDERED: PARO5TAB PO (10:29)
[2016-11-13] MEDS ORDERED: PRED10TA2 PO (10:29)
[2016-11-13] MEDS ORDERED: AZIT-12 PO (10:37)
[2016-11-13] MEDS: FLUDROCORTISONE ACETATE 0.1 MG TAB PO SCH (11:10)
--- NOTE | 2016-11-13 13:58 | DSES ---
DATE OF ADMISSION: 11/02/2016 DATE OF DISCHARGE: SPECIALISTS INVOLVED IN HER STAY: Included cardiology, pulmonology, orthopedic surgery. DISCHARGE DIAGNOSES: 1. Interstitial lung disease. 2. Chronic hypoxic respiratory failure. 3. Mycobacterium avium-intracellulare complex (CJ) infection. 4. Atrial tachycardia. 5. Marked severe mitral regurgitation. 6. Orthostatic hypotension. 7. Degenerative disc disease. 8. Depression. 9. Metabolic encephalopathy. 10. Left femoral neck fracture. 11. Electrocardiogram (EKG) changes. 12. Moderate pulmonary hypertension. 13. severe protein calorie malnutrition BMI 15 Following is a summary of her hospitalization: This is an 86-year-old who presented with left hip pain. She had suffered a fall and become confused. Was brought to the hospital and was found to have a hip fracture and was thought not to be a surgical candidate based on her comorbidities. Was maintained in hospital. Was made comfort care. Today, will be transferred to Hospice. On day of discharge, she was arousable. Appears comfortable. Pulse 70, respiratory rate most recently recorded is 17. She is on 2 liters of nasal cannula. DISCHARGE INSTRUCTIONS: Include the following: [facility]up at [facility] as needed. Diet and activity as tolerated. Continue Tylenol 650 mg every 4 hours as needed for pain or fever. Digoxin 0.125 mg by mouth daily. Ethambutol 800 mg by mouth daily. Flecainide 25 mg by mouth twice daily. Fludrocortisone 0.1 mg by mouth daily. Hyoscyamine sulfate as needed for terminal secretions. Lorazepam as needed 0.5 mg for anxiety. Morphine sulfate elixir 0.2 to 1 mL every 2 hours as needed for pain of dyspnea. Zofran 4 mg every 6 hours as needed for nausea and vomiting. Paxil 10 mg by mouth daily. Prednisone 10 mg by mouth every morning daily. Senokot S one tablet every morning daily as needed for constipation. Will also continue azithromycin 250 mg by mouth daily. MTDD
--- NOTE | 2016-11-13 20:55 | IPN ---
DATE: 11/12/2016 OBJECTIVE: The patient tells me she is comfortable. She denies being in any pain. The patient is oriented to person, to place, time and situation. She can tell me the year, the month, the name of the president, where she is. She is aware that she is in the hospital and she can tell me that she is in the hospital because of a hip fracture without any prompting or clues. OBJECTIVE AND PHYSICAL EXAMINATION: Deferred secondary to the patient being comfort measures only. No recent labs or imaging. ASSESSMENT AND PLAN: This is an 86-year-old female with a history of known coronary artery disease, severe valvular disease, interstitial lung disease, mycobacterium avium complex, who had a fall with left hip fracture and her case was discussed with pulmonary and cardiology and the patient was not felt to be a candidate for surgery given that the severity of her fracture and her immobility condition she was bed ridden. Prognosis was thought to be exceedingly poor. The patient and her family elected for comfort measures only. A MOLST form was completed by Dr. Lees, witnessed by the patient's , Prakash, and placed in the chart. Yesterday afternoon, the patient was accepted to the hospice. DISPOSITION AND PLAN: For the patient to be discharged to the hospice. However, the patient's , Prakash, was quite agitated and refused to allow the patient to be transferred to the hospice. I did present at bedside and had a length discussion with him, his two grandchildren and the patient. The patient at that time, as an outlined above, was completed oriented in good sound mind. Informed me that she did not want to go to hospice. Keeping in line with her wishes, I informed the that we would transfer her to hospice. However, he begin yelling at the patient and the patient became tearful and said that she would do whatever her wanted, changing her previous opinion. I did ask the what did he wish to see happen next. He told me that he wished that the patient would get better. I informed her that as many previous providers have explained to, him including from my personal conversations with Dr. Lees and Dr. Diaz, the patient unfortunately has a very poor prognosis beyond what we can provide for her here or moderate medicine can provide for her and that she is approaching the end of her life. I did inform the patient what we could offer her was everything possible to keep her comfortable to ensure that she does not suffer and these were her preexisting documented wishes, which she witnessed. For the time being the patient's has requested that she remains at [facility] so he can make "a few calls to [place]". The patient herself wishes to speak no further on the issue and states she wants to do whatever her says. At the end of my conversation, the is agreeable for DO NOT RESUSCITATE and DO NOT INTUBATE and continue comfort measures without any further escalation of care. However, he does not want her to go the hospice because he is not happy with her and does not want her to leave [facility]. They said if the patient becomes incapacitated, the is her healthcare proxy. However, should he elect to reverse her comfort measures only, I see no benefit to the patient and feel that he would represent a medically futile situation. The case has been discussed with Dr. Chapa, who will be assuming care at at 7 a.m.
== END 2016-11-13 13:20 | disposition hospice, inpatient (51) | DRG 535 ==
LOC: M ED 20:57 → EEVIPCON 22:54 → M ED INP 22:54 → M PCU 11-03 00:35 → M MSPAV 11-03 15:42
PROVIDERS: ADMIT Internal Medicine; ATTEND Internal Medicine
DX: S72.002A Fracture of unspecified part of neck of left femur, initial encounter for closed fracture (principal); G93.41 Metabolic encephalopathy; I21.4 Non-ST elevation (NSTEMI) myocardial infarction; J84.9 Interstitial pulmonary disease, unspecified; J96.11 Chronic respiratory failure with hypoxia; A31.0 Pulmonary mycobacterial infection; I47.1 Supraventricular tachycardia; I50.9 Heart failure, unspecified; Z66 Do not resuscitate; Z51.5 Encounter for palliative care; F32.9 Major depressive disorder, single episode, unspecified; I34.0 Nonrheumatic mitral (valve) insufficiency; I95.1 Orthostatic hypotension; I27.2 Other secondary pulmonary hypertension; W01.0XXA Fall on same level from slipping, tripping and stumbling without subsequent striking against object, initial encounter; Y92.019 Unspecified place in single-family (private) house as the place of occurrence of the external cause; Y93.01 Activity, walking, marching and hiking; Y99.9 Unspecified external cause status; Z79.52 Long term (current) use of systemic steroids; Z99.81 Dependence on supplemental oxygen; Z90.710 Acquired absence of both cervix and uterus; Z98.41 Cataract extraction status, right eye; Z98.42 Cataract extraction status, left eye